=== PATIENT | female | born 1980 | race Caucasian/White ===

== ENCOUNTER 2019-04-01 19:55 | Emergency (ER) | payer OTHER ==
[2019-04-01] MEDS ORDERED: MAG HYDROX/AL HYDROX/SIMETH SUSP 30 ML UDCUP PO ONE (20:14)
[2019-04-01] MEDS ORDERED: LIDOCAINE 2% VISCOUS SOLN 20 ML UDCUP PO ONE (20:14)
[2019-04-01] MEDS ORDERED: METOCLOPRAMIDE HCL ORAL SOLN 10 MG/10 ML UDCUP PO ONE (20:14)
--- NOTE | 2019-04-01 20:17 | ER Document Report ---
ED Medical Screen (RME) - General Chief Complaint: Abdominal Pain Stated Complaint: CHEST PAIN Time Seen by Provider: 04/01/19 20:12 Notes: Patient is a 38-year-old female who presents to the emergency department with a chief complaint of abdominal pain. Patient reports she has been under a lot of stress over the past month and half as her fianc ended a 10-year relationship. She states last night she found out he was with another female. She reports she is lost 20 pounds over the past month due to stress. Patient reports last night she had increased anxiety and feelings of palpitations in her heart. Patient reports today she developed abdominal pain located to the left of the umbilicus and radiates up into the left upper abdomen and left breast.. Patient reports she has had a similar episode in the past which was not as bad and was told she had gastritis. Patient reports she has had a cholecystectomy. Patient reports nausea without vomiting or diarrhea. Patient denies fever. Patient denies urinary symptoms. Patient reports she just got off of her menstrual cycle and is supposed to start her new pack of control pills tomorrow. - Related Data Allergies/Adverse Reactions: codeine [Codeine] Allergy (Verified 04/05/13 16:53) Past Medical History Past Surgical History: Reports: Hx Cholecystectomy - Immunizations Hx Diphtheria, Pertussis, Tetanus Vaccination: Yes Physical Exam - Vital signs Vitals: Temp Pulse Resp BP Pulse Ox 97.5 F 76 18 148/75 H 100 04/01/19 20:11 04/01/19 20:11 04/01/19 20:11 04/01/19 20:11 04/01/19 20:11 Course - Re-evaluation Re-evalutation: 04/01/19 20:17 I have greeted and performed a rapid initial assessment of this patient. A comprehensive ED assessment and evaluation of the patient, analysis of test results and completion of the medical decision making process will be conducted by additional ED providers. - Vital Signs Vital signs: Temp Pulse Resp BP Pulse Ox 97.5 F 76 18 148/75 H 100 04/01/19 20:11 04/01/19 20:11 04/01/19 20:11 04/01/19 20:11 04/01/19 20:11
[2019-04-01 20:58] LABS: ABSOLUTE BASOPHILS # (AUTO) 0.1 10^3/uL (0.0-0.2); ABSOLUTE LYMPHOCYTES (AUTO) 2.8 10^3/uL (0.5-4.7); ABSOLUTE MONOCYTES (AUTO) 1.1 10^3/uL (0.1-1.4); BASOPHILS % (AUTO) 0.5 % (0-2); EOSINOPHILS % (AUTO) 0.3 % (0-6); HEMATOCRIT 39.5 % (36.0-47.0); HEMOGLOBIN 13.2 g/dL (12.0-15.5); LYMPHOCYTES % (AUTO) 20.1 % (13-45); MEAN CORPUSCULAR HEMOGLOBIN 28.4 pg (27.0-33.4); MEAN CORPUSCULAR HGB CONC 33.4 g/dL (32.0-36.0); MEAN CORPUSCULAR VOLUME 85 fl (80-97); MONOCYTES % (AUTO) 7.8 % (3-13); PLATELET COUNT 318 10^3/uL (150-450); RED BLOOD COUNT 4.64 10^6/uL (3.72-5.28); RED CELL DISTRIBUTION WIDTH 14.9 % (11.5-14.0); SEGMENTED NEUTROPHILS % (AUTO) 71.3 % (42-78); TOTAL CELLS COUNTED % (AUTO) 100 %
--- NOTE | 2019-04-01 21:10 | ER Document Report ---
ED GI/ - General Chief Complaint: Chest Pain Stated Complaint: CHEST PAIN Time Seen by Provider: 04/01/19 20:12 Primary Care Provider: MIGUELINA SAAB PA-C [Primary Care Provider] - Follow up as needed Notes: 38-year-old woman presents to the emergency department with a complaint of abdominal pain with severe cramping pain and episodes of vomiting at home. She states that she has gone through a stressful break-up and feels that her symptoms are related to anxiety and stress. She was up all night with shakiness anxiousness and rapid heartbeat. Was resting well today and approximately 3 hours after eating her evening meal began having severe epigastric and left- sided abdominal pain. She presents to the emergency department and was evaluated in the provider in triage system, GI cocktail was ordered. After attempting to drink GI cocktail patient began vomiting and planing of increased abdominal pain. She denies diarrhea or fever. He has had a cholecystectomy in the past no other abdominal surgeries. Her last bowel movement was early in the afternoon and her appetite has been normal. - Related Data Allergies/Adverse Reactions: codeine [Codeine] Allergy (Verified 04/05/13 16:53) Home Medications: Plaquenil 200mg (2tabs) BID. Orthotricyclin Control Past Medical History - General Information source: Patient - Social History Smoking Status: Never Smoker Frequency of alcohol use: None Drug Abuse: None Family History: Reviewed & Not Pertinent, Other Patient has suicidal ideation: No Patient has homicidal ideation: No Past Surgical History: Reports: Hx Cholecystectomy - Immunizations Hx Diphtheria, Pertussis, Tetanus Vaccination: Yes Review of Systems - Review of Systems Notes: Constitutional: Negative for fever. HENT: Negative for sore throat. Eyes: Negative for visual changes. Cardiovascular: Negative for chest pain. Respiratory: Negative for shortness of breath. Gastrointestinal: +abdominal pain, +vomiting , no diarrhea. Genitourinary: Negative for dysuria. Musculoskeletal: Negative for back pain. Skin: Negative for rash. Neurological: Negative for headaches, weakness or numbness. 10 point ROS negative except as marked above and in HPI. Physical Exam - Vital signs Vitals: Temp Pulse Resp BP Pulse Ox 97.5 F 76 18 148/75 H 100 04/01/19 20:11 04/01/19 20:11 04/01/19 20:11 04/01/19 20:11 04/01/19 20:11 - Notes Notes: PHYSICAL EXAMINATION: GENERAL: Well-appearing, well-nourished female moderate distress due to abdominal pain. HEAD: Atraumatic, normocephalic. EYES: Pupils equal round and reactive to light, extraocular movements intact, sclera anicteric, conjunctiva are normal. ENT: nares patent, oropharynx clear without exudates. Moist mucous membranes. NECK: Normal range of motion, supple without lymphadenopathy LUNGS: Breath sounds clear to auscultation bilaterally and equal. No wheezes rales or rhonchi. HEART: Regular rate and rhythm without murmurs ABDOMEN: Soft, tenderness in the mid epigastric and left upper quadrants region, tenderness in the periumbilical region, normoactive bowel sounds. No guarding, no rebound. No masses appreciated. EXTREMITIES: Normal range of motion, no pitting or edema. No cyanosis. NEUROLOGICAL: No focal neurological deficits. Moves all extremities spontaneously and on command. PSYCH: Normal mood, normal affect. SKIN: Warm, Dry, normal turgor, no rashes or lesions noted. Course - Re-evaluation Re-evalutation: 04/01/19 23:29 The nurse reports that the patient is continued to have severe pain. Upon evaluation the patient is writhing in pain stating that pain is a 10/10. She was unable to keep the GI cocktail down and a Toradol was ineffective in treatin g the pain. Patient is given hydromorphone 1 mg IV and Zofran [address] scan has been completed and we are awaiting the interpretation by the radiologist. 04/02/19 01:11 I discussed the findings of this laboratory data and CT scan with the patient and her mother. There is no acute pathology which she needs intervention on the CT scan, the white blood cell count is 14,000 but may be related to other reasons rather than infection. Patient is is resting quietly and her abdominal pain has improved. I will be discharging her home with dicyclomine and encouragement to follow-up with her primary care doctor as needed. The patient and her mother acknowledges this plan and are in agreement. - Vital Signs Vital signs: Temp Pulse Resp BP Pulse Ox 97.5 F 76 21 H 125/74 93 04/01/19 20:11 04/01/19 20:11 04/02/19 01:01 04/02/19 01:00 04/02/19 01:01 - Laboratory Result Diagrams: 04/01/19 20:40 04/01/19 20:40 Laboratory results interpreted by me: 04/01/19 04/01/19 04/01/19 20:40 20:40 22:04 WBC 14.0 H RDW 14.9 H Absolute Neuts (auto) 10.0 H BUN 6 L Urine Ketones 20 H - Diagnostic Test Radiology reviewed: Image reviewed, Reports reviewed - CT scan abdomen and pelvis with IV contrast: There were no acute intra-abdominal pathology noted on the CT scan. The radiologist raises questionable area on the spleen which may represent splenic infarct. Splenic artery is patent and the patient has no symptoms in the left upper quadrant area. Symptomatic management is treatment of choice, however, findings do not correlate with the clinical presentation. Discharge - Discharge Clinical Impression: Abdominal pain, diffuse, Stress reaction Condition: Good Disposition: HOME, SELF-CARE Instructions: Antacid Therapy ([facility]), Antispasmodics ([facility]), Anxiety ([facility]) Additional Instructions: Please take your medications as prescribed dicyclomine and omeprazole. At this time will discharge with return precautions and follow-up recommendations. Verbal discharge instructions given a the bedside and opportunity for questions given. Medication warnings reviewed. Patient is in agreement with this plan and has verbalized understanding of return precautions and the need for primary care follow-up in the next 24-72 hours. Prescriptions: Dicyclomine HCl [Bentyl 10 mg Capsule] 1 cap PO TID #20 cap Omeprazole 40 mg PO DAILY #20 capsule. Referrals: MIGUELINA SAAB PA-C [Primary Care Provider] - Follow up as needed
[2019-04-01 21:11] LABS: ALBUMIN 4.3 g/dL (3.5-5.0); ALKALINE PHOSPHATASE 76 U/L (38-126); ANION GAP 12 (5-19); ASPARTATE AMINO TRANSFERASE 25 U/L (14-36); BILIRUBIN,DIRECT 0.1 mg/dL (0.0-0.4); BILIRUBIN,TOTAL 0.4 mg/dL (0.2-1.3); BLOOD UREA NITROGEN 6 mg/dL (7-20); CALCIUM 9.9 mg/dL (8.4-10.2); CARBON DIOXIDE 23 mmol/L (22-30); CHLORIDE 104 mmol/L (98-107); GLUCOSE 101 mg/dL (75-110); POTASSIUM 3.7 mmol/L (3.6-5.0); TOTAL PROTEIN 7.4 g/dL (6.3-8.2)
[2019-04-01] MEDS ORDERED: KETOROLAC TROMETHAMINE INJ/PF 30 MG/1 ML SDV IV ONE (21:11)
[2019-04-01] MEDS ORDERED: ONDANSETRON HCL INJ/PF 4 MG/2 ML SDV IV ONE ×2 (21:11→23:28)
[2019-04-01] MEDS ORDERED: NORMAL SALINE 1000 ML 1,000 ML IV ONE (21:12)
--- NOTE | 2019-04-01 22:18 | EKG REPORT ---
SEVERITY:- ABNORMAL ECG - SINUS RHYTHM PROBABLE LEFT ATRIAL ABNORMALITY PROBABLE LEFT VENTRICULAR HYPERTROPHY BORDERLINE T ABNORMALITIES, INFERIOR LEADS : Confirmed by: Louise Mackey MD 01-Apr-2019 22:18:09
[2019-04-01 22:44] LABS: APPEARANCE,URINE SLIGHTLY-CLOUDY; BILIRUBIN,URINE NEGATIVE (NEGATIVE); COLOR,URINE YELLOW; GLUCOSE, URINE NEGATIVE (NEGATIVE); KETONES,URINE 20 mg/dL (NEGATIVE); LEUKOCYTE ESTERASE,URINE NEGATIVE (NEGATIVE); NITRITE,URINE NEGATIVE (NEGATIVE); PROTEIN,URINE NEGATIVE (NEGATIVE); UROBILINOGEN,URINE NEGATIVE mg/dL (<2.0)
[2019-04-01] MEDS ORDERED: HYDROMORPHONE HCL INJ/PF 2 MG/ML AMPULE IV ONE (23:26)
--- NOTE | 2019-04-01 23:29 | RADIOLOGY REPORT (SQ) ---
EXAM DESCRIPTION: CT ABDOMEN PELVIS WITH IV CONTRAST COMPLETED DATE/TME: 04/01/2019 21:39 CLINICAL HISTORY: 38 years, Female, Left lower quadrant abdominal pain COMPARISON: None. TECHNIQUE: 407 Images stored on PACS. All CT scanners at this facility use dose modulation, iterative reconstruction, and/or weight based dosing when appropriate to reduce radiation dose to as low as reasonably achievable (ALARA). [facility]: Dose Right [facility]: CareDose [facility]: Dose Right [facility]: Teradose 4D [facility]: [employer] LIMITATIONS: None. FINDINGS: Limited evaluation of the lung bases is unremarkable. Osseous structures are grossly intact. Fatty infiltrative change to the liver. Heterogeneous enhancement of the spleen. The spleen is not enlarged. While findings may in part reflect phase of splenic contrast, splenic infarct should also be considered. The splenic artery appears patent. Abnormal enhancement persists on delayed images as well.. The spleen measures 9 cm in greatest diameter. The adrenal glands, pancreas, kidneys are unremarkable. Status post cholecystectomy. No gross evidence for bowel obstruction. The appendix is not well seen. No pericecal inflammation. No free air or free fluid.. IMPRESSION: Diffusely heterogeneous enhancement pattern of the spleen. The spleen is not enlarged. No perisplenic fluid collection. In the absence of trauma, findings could reflect areas of splenic infarct. Infectious or neoplastic process felt less likely. Fatty infiltrative change to the liver.. TECHNICAL DOCUMENTATION: Quality ID # [id number]: Final reports with documentation of one or more dose reduction techniques (e.g., Automated exposure control, adjustment of the mA and/or kV according to patient size, use of iterative reconstruction technique) copyright 2011 [employer]- All Rights Reserved
[2019-04-02] MEDS ORDERED: LORAZEPAM INJ 2 MG/1 ML VIAL IV ONE (00:10)
[2019-04-02 01:18] VITALS: BP 125/74
== END 2019-04-02 01:32 | disposition home or self-care (01) ==
LOC: ER 19:55
DX: R10.9 Unspecified abdominal pain (principal); F43.9 Reaction to severe stress, unspecified; R07.9 Chest pain, unspecified; R11.10 Vomiting, unspecified; Z90.49 Acquired absence of other specified parts of digestive tract; Z79.899 Other long term (current) drug therapy
CPT/HCPCS: 93005; 36415; 83690; 84703; 85025; 80053; 81001; 74177; 93010; J3490; J1885; J1170; J2060; J2405; J7030; 96361; 96374; 96375; 96376; 99285

== ENCOUNTER 2019-04-02 06:41 | Inpatient (IN) | payer OTHER ==
--- NOTE | 2019-04-02 07:24 | ER Document Report ---
ED GI/ - General Chief Complaint: Abdominal Pain Stated Complaint: ABDOMINAL PAIN Time Seen by Provider: 04/02/19 06:57 Information source: Patient Notes: Ms. Parker is a 38 yo F w/ PMH of anti-Radha positive rash (unknown autoimmune disease) presenting to the ED for abdominal pain. Patient states abdominal pain is primarily in the left upper quadrant, underneath her left rib cage and radiates to her left flank/left back. She also endorses a pain in her left scapula. She denies any falls or trauma. Patient states she is currently on control with Ortho Tri-Cyclen Lo. She denies any other risk factors for coagulopathy including prolonged immobilization, recent travel, recent surgery, or previous history of any clots. Patient states she thought this was GERD and has been taking acid reducing medication including Maalox with minimal improvement. She states the pain initially began approximately 2 days ago but acutely worsened yesterday which caused her to present to the ED for initial evaluation. She was given a pain medication overnight (Dilaudid) which improved the pain some however did not cause the pain to completely resolve. When she went home, she had 3 spoonfuls of soup and had such severe pain that she vomited again. Patient denies any fevers or chills, chest pain, cough or shortness of breath. She denies any other ill contacts. She endorses a previous cholecystectomy. TRAVEL OUTSIDE OF THE [place] IN LAST 30 DAYS: No - Related Data Allergies/Adverse Reactions: codeine [Codeine] Allergy (Verified 04/05/13 16:53) Past Medical History - Social History Smoking Status: Never Smoker Chew tobacco use (# tins/day): No Frequency of alcohol use: None Drug Abuse: None Family History: Reviewed & Not Pertinent, Other Patient has suicidal ideation: No Patient has homicidal ideation: No Past Surgical History: Reports: Hx Cholecystectomy - Immunizations Hx Diphtheria, Pertussis, Tetanus Vaccination: Yes Review of Systems - Review of Systems Constitutional: See HPI EENT: No symptoms reported Cardiovascular: No symptoms reported Respiratory: No symptoms reported Gastrointestinal: See HPI Genitourinary: No symptoms reported Female Genitourinary: No symptoms reported Musculoskeletal: No symptoms reported Skin: No symptoms reported Hematologic/Lymphatic: No symptoms reported Neurological/Psychological: No symptoms reported -: Yes All other systems reviewed and negative Physical Exam - Vital signs Vitals: Temp Pulse Resp BP Pulse Ox 97.6 F 70 17 133/99 H 100 04/02/19 06:48 04/02/19 06:48 04/02/19 06:48 04/02/19 06:48 04/02/19 06:48 Interpretation: Normal - General General appearance: Appears well, Alert - HEENT Head: Normocephalic, Atraumatic Eyes: Normal Pupils: PERRL - Respiratory Respiratory status: No respiratory distress Chest status: Nontender Breath sounds: Normal Chest palpation: Normal - Cardiovascular Rhythm: Regular Heart sounds: Normal auscultation Murmur: No - Abdominal Inspection: Normal Distension: No distension Bowel sounds: Normal Tenderness: Tender, Guarding - Voluntary. No: McBurney's point, Tran's sign, Rebound Organomegaly: No organomegaly - Back Back: Normal, Nontender - Extremities General upper extremity: Normal inspection, Nontender, Normal color, Normal ROM, Normal temperature General lower extremity: Normal inspection, Nontender, Normal color, Normal ROM, Normal temperature, Normal weight bearing. No: Calos's sign - Neurological Neuro grossly intact: Yes Cognition: Normal Orientation: AAOx4 Ricardo Coma Scale Eye Opening: Spontaneous [place] Coma Scale Verbal: Oriented [place] Coma Scale Motor: Obeys Commands Ricardo Coma Scale Total: 15 Speech: Normal Motor strength normal: LUE, RUE, LLE, RLE Sensory: Normal - Psychological Associated symptoms: Normal affect, Normal mood - Skin Skin Temperature: Warm Skin Moisture: Dry Skin Color: Normal Course - Re-evaluation Re-evalutation: Patient is uncomfortable appearing but nontoxic. Initial vitals within normal limits. Patient was evaluated here yesterday evening and had full set of labs including CAT scan abdomen pelvis. CT does show evidence of splenic infarction. Will discuss with radiologist to see if he is in agreement. Differential diagnosis includes inability keep down p.o., dehydration, electrolyte normality, splenic infarction, coagulopathy 04/02/19 07:23 Spoke to radiologist, Dr. Freitas. He agrees with the diagnosis. The patient spleen has infarcted and is likely causing her etiology of symptoms. CBC notable for worsening leukocytosis with worsening left shift. CMP within normal limits. PT/INR also unremarkable. No indication for repeat imaging at this point in time as patient's pain has not changed and both radiology as well as surgery agree that the patient does have a splenic infarction. 04/02/19 07:43 Spoke to , who recommended a PT/INR to be added on. He is reviewing the CT and will likely admit the patient for further care. 04/02/19 08:[address] De Souza. Feels that the patient's spring upholsterer needs to be contacted. He also would recommend admission to the medical service for anti-emetics and pain control given her inability to keep p.o. and feels that surgical intervention at this point in time is not indicated. Recommended that hematology oncology consult regarding the patient. 04/02/19 08:[address] Montes @ [phone]. Able to get a hold of the office, try twice. 04/02/19 08:[address] Silver. Would like admission to Mr. Ruiz. She was having pain, ordered for Dilaudid 1 mg IV. 04/02/19 09:26 Spoke to Mr. Ruiz regarding admission. Will admit the patient for further care. - Vital Signs Vital signs: Temp Pulse Resp BP Pulse Ox 97.6 F 70 19 115/67 94 04/02/19 06:48 04/02/19 06:48 04/02/19 10:31 04/02/19 10:31 04/02/19 10:31 - Laboratory Result Diagrams: 04/02/19 08:02 04/02/19 08:02 Laboratory results interpreted by me: 04/02/19 04/02/19 08:02 08:02 WBC 18.8 H RDW 14.9 H Lymph % (Auto) 7.0 L Absolute Neuts (auto) 16.6 H Seg Neutrophils % 88.2 H BUN 5 L Discharge - Discharge Clinical Impression: Splenic infarction, Abdominal pain, Nausea & vomiting Condition: Good Disposition: ADMITTED INPATIENT Admitting Provider: Adrianne (Hospitalist) Unit Admitted: Medical Floor
[2019-04-02] MEDS ORDERED: NORMAL SALINE 1000 ML 1,000 ML IV ONE (07:29)
[2019-04-02] MEDS ORDERED: ONDANSETRON HCL INJ/PF 4 MG/2 ML SDV IV ONE (07:30)
[2019-04-02] MEDS ORDERED: MORPHINE SULFATE 10 MG/ML INJ IV ONE (07:42)
[2019-04-02 08:32] LABS: ABSOLUTE BASOPHILS # (AUTO) 0.1 10^3/uL (0.0-0.2); ABSOLUTE LYMPHOCYTES (AUTO) 1.3 10^3/uL (0.5-4.7); ABSOLUTE MONOCYTES (AUTO) 0.8 10^3/uL (0.1-1.4); ABSOLUTE NEUT (AUTO) 16.6 10^3/uL (1.7-8.2); BASOPHILS % (AUTO) 0.4 % (0-2); HEMOGLOBIN 12.9 g/dL (12.0-15.5); MEAN CORPUSCULAR HEMOGLOBIN 28.1 pg (27.0-33.4); MEAN CORPUSCULAR HGB CONC 32.4 g/dL (32.0-36.0); MEAN CORPUSCULAR VOLUME 87 fl (80-97); MONOCYTES % (AUTO) 4.4 % (3-13); PLATELET COUNT 305 10^3/uL (150-450); RED CELL DISTRIBUTION WIDTH 14.9 % (11.5-14.0); SEGMENTED NEUTROPHILS % (AUTO) 88.2 % (42-78); TOTAL CELLS COUNTED % (AUTO) 100 %; WHITE BLOOD COUNT 18.8 10^3/uL (4.0-10.5)
[2019-04-02 08:44] LABS: INTERNATIONAL RATION (INR) 1.04; PROTHROMBIN TIME 13.6 SEC (11.4-15.4)
[2019-04-02 08:57] LABS: ALBUMIN 4.2 g/dL (3.5-5.0); ALKALINE PHOSPHATASE 75 U/L (38-126); ANION GAP 9 (5-19); ASPARTATE AMINO TRANSFERASE 26 U/L (14-36); BILIRUBIN,DIRECT 0.1 mg/dL (0.0-0.4); BILIRUBIN,TOTAL 0.3 mg/dL (0.2-1.3); BLOOD UREA NITROGEN 5 mg/dL (7-20); CARBON DIOXIDE 25 mmol/L (22-30); CHLORIDE 104 mmol/L (98-107); GLUCOSE 109 mg/dL (75-110); POTASSIUM 3.7 mmol/L (3.6-5.0); TOTAL PROTEIN 7.5 g/dL (6.3-8.2)
[2019-04-02] MEDS ORDERED: HYDROMORPHONE HCL INJ/PF 2 MG/ML AMPULE IV ONE (09:14)
--- NOTE | 2019-04-02 09:17 | PDOC CONSULTATION ---
Consultation Consult Date: 04/02/19 Provider Consulted: AVIVA BRICE Consult reason:: Splenic infarct History of Present Illness Admission Date/PCP: MIGUELINA SAAB PA-C Patient complains of: Left upper quadrant pains with nausea and vomiting History of Present Illness: SHASHI BETH is a 38 year old female came in last night initially at the ED for left upper quadrant pains with nausea and vomiting. She had a CAT scan of the abdomen which initially read as possible partial splenic infarction. Patient sent home at 2 AM this morning after being given IV Dilaudid. Woke up with the same type of pains in left upper quadrant and again associated with nausea and vomiting around 5 AM and came back to ED. Surgery was then consulted for definite partial splenic infarction as discussed by the ED physician with renea radiologist. On further questioning patient claims that she was diagnosed to have some autoimmune disease by a nitric acid concentrator operator in 2013 when she had some sunburn. She was then placed on Plaquenil 400 mg [address] day [address] Dr. Josué CONNORS from [facility] evelyn in the last consultation was about 2 months ago. Patient further informs me that her father had a history of recessive trait of hemochromatosis and and and diet as a result of hemochromatosis. Patient also has been on control pills since age 16. Past Medical History Skin Medical History: Reports: Other - Diagnosed to have an autoimmune disease b y her nitric acid concentrator operator Dr. Pete in Past Surgical History Past Surgical History: Reports: Cholecystectomy Social History Smoking Status: Never Smoker Electronic Cigarette use?: No Family History Family History: Reviewed & Not Pertinent, Other Parental Family History Reviewed: Yes - Father has recessive trait of hemochromatosis and an aunt due to this Children Family History Reviewed: No Sibling(s) Family History Reviewed.: No Medication/Allergy Home Medications: Hydroxychloroquine Sulfate [Plaquenil 200 mg Tablet] 200 mg PO BID 04/02/19 Allergies/Adverse Reactions: codeine [Codeine] Allergy (Verified 04/05/13 16:53) Review of Systems Constitutional: PRESENT: weight loss - 20 lbs past 1.5 months Cardiovascular: PRESENT: palpitations Gastrointestinal: PRESENT: abdominal pain, nausea, vomiting Psychiatric: PRESENT: anxiety - Boyfriend of 12 years cut off relationship over the weekend Physical Exam Vital Signs: Temp Pulse Resp BP Pulse Ox 97.6 F 70 12 120/75 99 11/18/19 06:48 04/02/19 06:48 04/02/19 08:31 04/02/19 08:31 04/02/19 08:31 Intake & Output 04/01/19 04/02/19 04/03/19 06:59 06:59 06:59 Weight 88.904 kg General appearance: PRESENT: mild distress Head exam: PRESENT: atraumatic Eye exam: PRESENT: conjunctiva pink Neck exam: PRESENT: full ROM Respiratory exam: PRESENT: clear to auscultation armand Cardiovascular exam: PRESENT: RRR Pulses: PRESENT: normal radial pulses Vascular exam: PRESENT: normal capillary refill GI/Abdominal exam: PRESENT: soft, tenderness - LUQ Rectal exam: PRESENT: deferred Extremities exam: PRESENT: full ROM Musculoskeletal exam: PRESENT: ambulatory Neurological exam: PRESENT: alert, oriented to person, oriented to place, oriented to time, oriented to situation Psychiatric exam: PRESENT: anxious Skin exam: PRESENT: normal color, warm Results Laboratory Results: 04/02/19 08:02 04/02/19 04/02/19 08:02 08:02 WBC 18.8 H RBC 4.60 Hgb 12.9 Hct 40.0 MCV 87 MCH 28.1 MCHC 32.4 RDW 14.9 H Plt Count 305 Seg Neutrophils % 88.2 H Lactic Acid 1.2 Assessment & Plan - Diagnosis (1) Partial splenic infarction Is this a current diagnosis for this admission?: Yes - Time Time Spent: 30 to 50 Minutes - Inpatient Certification Medical Necessity: Need For IV Fluids, Need for Pain Control - Plan Summary Plan Summary: This is a 38-year-old female with the left upper quadrant pains for the past 2 days associated with nausea and vomiting. She had a CAT scan of the abdomen which showed partial splenic infarctions. She has a history of autoimmune disease and taking Plaquenil 200 mg twice a day prescribed by her nitric acid concentrator operator Dr. Marin in [place] since 2013. She also has family history for hemochromat osis. His father apparently has recessive trait for this and an aunt apparently as a complication of this. She has been on control pills since age 16. She is tender in the left upper quadrant but no rebound. Her white count is elevated to 18.8. Impression is partial splenic infarction. Possibly due to history of autoimmune disease with hemochromatosis. Plans: Admit patient to medical service and continue with pain control with Toradol and if needed with narcotics. Hematology consultation with Dr. Morrow We can follow-up the patient with you Patient may need to be on anticoagulation but will leave it up to the high density press operator recommendation
[2019-04-02] MEDS ORDERED: ONDANSETRON HCL INJ/PF 4 MG/2 ML SDV IV PRN (09:53)
[2019-04-02] MEDS ORDERED: HYDROXYCHLOROQUINE SULFATE 200 MG TABLET PO SCH (10:00)
--- NOTE | 2019-04-02 10:08 | PDOC H&P ---
History of Present Illness Admission Date/PCP: 04/02/19 09:54 MIGUELINA SAAB PA-C Patient complains of: Abdominal pain History of Present Illness: SHASHI BETH is a 38 year old female Past Medical History Skin Medical History: Reports: Other - Diagnosed to have an autoimmune disease by her rough rice tender Dr. Pete in Past Surgical History Past Surgical History: Reports: Cholecystectomy Social History Information Source: Patient Lives with: Family Smoking Status: Never Smoker Electronic Cigarette use?: No Frequency of Alcohol Use: None Hx Recreational Drug Use: No Drugs: None Hx Prescription Drug Abuse: No - Advance Directive Resuscitation Status: Full Code Family History Family History: Other Parental Family History Reviewed: Yes Children Family History Reviewed: Yes Sibling(s) Family History Reviewed.: Yes Medication/Allergy Home Medications: Hydroxychloroquine Sulfate [Plaquenil 200 mg Tablet] 200 mg PO BID 04/02/19 Allergies/Adverse Reactions: codeine [Codeine] Allergy (Verified 04/05/13 16:53) Review of Systems Constitutional: ABSENT: chills, fever(s), headache(s), weight gain, weight loss Eyes: ABSENT: visual disturbances Ears: ABSENT: hearing changes Cardiovascular: ABSENT: chest pain, dyspnea on exertion, edema, orthropnea, palpitations Respiratory: ABSENT: cough, hemoptysis Gastrointestinal: PRESENT: abdominal pain, nausea, vomiting. ABSENT: constipation, diarrhea, hematemesis, hematochezia Genitourinary: ABSENT: dysuria, hematuria Musculoskeletal: ABSENT: joint swelling Integumentary: ABSENT: rash, wounds Neurological: ABSENT: abnormal gait, abnormal speech, confusion, dizziness, focal weakness, syncope Psychiatric: ABSENT: anxiety, depression, homidical ideation, suicidal ideation Endocrine: ABSENT: cold intolerance, heat intolerance, polydipsia, polyuria Hematologic/Lymphatic: ABSENT: easy bleeding, easy bruising Physical Exam Vital Signs: Temp Pulse Resp BP Pulse Ox 97.6 F 70 12 120/75 99 04/02/19 06:48 04/02/19 06:48 04/02/19 08:31 04/02/19 08:31 04/02/19 08:31 Intake & Output 04/01/19 04/02/19 04/03/19 06:59 06:59 06:59 Intake Total 1000 Balance 1000 Weight 88.904 kg General appearance: PRESENT: no acute distress, well-developed, well-nourished Head exam: PRESENT: atraumatic, normocephalic Eye exam: PRESENT: conjunctiva pink, EOMI, PERRLA. ABSENT: scleral icterus Ear exam: PRESENT: normal external ear exam Mouth exam: PRESENT: moist, tongue midline Neck exam: ABSENT: carotid bruit, JVD, lymphadenopathy, thyromegaly Respiratory exam: PRESENT: clear to auscultation armand. ABSENT: rales, rhonchi, wheezes Cardiovascular exam: PRESENT: RRR. ABSENT: diastolic murmur, rubs, systolic murmur Pulses: PRESENT: normal dorsalis pedis pul Vascular exam: PRESENT: normal capillary refill GI/Abdominal exam: PRESENT: normal bowel sounds, soft. ABSENT: distended, guarding, mass, organolmegaly, rebound, tenderness Rectal exam: PRESENT: deferred Extremities exam: PRESENT: full ROM. ABSENT: calf tenderness, clubbing, pedal edema Neurological exam: PRESENT: alert, awake, oriented to person, oriented to place, oriented to time, oriented to situation, CN II-XII grossly intact. ABSENT: motor sensory deficit Psychiatric exam: PRESENT: appropriate affect, normal mood. ABSENT: homicidal ideation, suicidal ideation Skin exam: PRESENT: dry, intact, warm. ABSENT: cyanosis, rash Results Laboratory Results: 04/02/19 08:02 04/02/19 08:02 04/02/19 04/02/19 04/02/19 08:02 08:02 08:02 WBC 18.8 H RBC 4.60 Hgb 12.9 Hct 40.0 MCV 87 MCH 28.1 MCHC 32.4 RDW 14.9 H Plt Count 305 Seg Neutrophils % 88.2 H Sodium 138.3 Potassium 3.7 Chloride 104 Carbon Dioxide 25 Anion Gap 9 BUN 5 L Creatinine 0.67 Est GFR ( Amer) > 60 Glucose 109 Lactic Acid 1.2 Calcium 9.0 Total Bilirubin 0.3 AST 26 Alkaline Phosphatase 75 Total Protein 7.5 Albumin 4.2 Lipase 59.2 Assessment and Plan - Diagnosis (1) Splenic infarction Is this a current diagnosis for this admission?: Yes Plan: 04/02/2019-not a surgical candidate this time. Will admit for hydration and pain control. Continue to follow surgery has seen the patient at this time. (2) Radha-1 antibody positive Is this a current diagnosis for this admission?: Yes Plan: 04/02/2019-continue hydroxychloroquine from home (3) Abdominal pain Is this a current diagnosis for this admission?: Yes Plan: 04/02/2019-Dilaudid 1 mg IV every 3 hours. (4) Nausea & vomiting Is this a current diagnosis for this admission?: Yes Plan: 04/02/2019-Zofran 4 mg IV every 4 hours. - Time Time Spent with patient: 15-24 minutes - Inpatient Certification Based on my medical assessment, after consideration of the patient's comorbidities, presenting symptoms, or acuity I expect that the services needed warrant INPATIENT care.: Yes I certify that my determination is in accordance with my understanding of Medicare's requirements for reasonable and necessary INPATIENT services [42 CFR 412.3e].: Yes Medical Necessity: Need for Pain Control, Need for IV Antibiotics
[2019-04-02] MEDS: NORMAL SALINE 1000 ML 1,000 ML IV PRN ×2 (10:27→19:54)
[2019-04-02] MEDS: HYDROXYCHLOROQUINE SULFATE 200 MG TABLET PO SCH ×2 (12:08→22:49)
[2019-04-02] MEDS: KETOROLAC TROMETHAMINE INJ/PF 30 MG/1 ML SDV IV PRN ×2 (12:27→19:55)
[2019-04-02] MEDS: CEFTRIAXONE 1 GM/D5W RTU 1 GM/50 ML RTUPB IV SCH (12:28)
[2019-04-02] MEDS: HEPARIN SOD (PORCINE) 5,000 UNIT/ML 1 ML VIAL SUBCUT SCH ×2 (14:31→22:32)
[2019-04-02] MEDS: HYDROMORPHONE HCL INJ/PF 2 MG/ML AMPULE IV PRN ×2 (14:31→23:30)
[2019-04-02] MEDS ORDERED: MORPHINE SULFATE 10 MG/ML INJ IV PRN (20:55)
[2019-04-02] MEDS: MORPHINE SULFATE 10 MG/ML INJ IV PRN (22:31)
[2019-04-03] MEDS: MORPHINE SULFATE 10 MG/ML INJ IV PRN ×6 (01:36→21:14)
[2019-04-03] MEDS: KETOROLAC TROMETHAMINE INJ/PF 30 MG/1 ML SDV IV PRN ×2 (04:02→21:15)
[2019-04-03] MEDS: MAG HYDROX/AL HYDROX/SIMETH SUSP 30 ML UDCUP PO PRN ×2 (04:02→10:01)
[2019-04-03] MEDS: NORMAL SALINE 1000 ML 1,000 ML IV PRN ×2 (04:41→16:51)
[2019-04-03] MEDS: HYDROMORPHONE HCL INJ/PF 2 MG/ML AMPULE IV PRN (04:48)
[2019-04-03] MEDS: HEPARIN SOD (PORCINE) 5,000 UNIT/ML 1 ML VIAL SUBCUT SCH ×3 (05:35→21:08)
[2019-04-03 06:16] LABS: HEMOGLOBIN 12.1 g/dL (12.0-15.5); MEAN CORPUSCULAR HEMOGLOBIN 28.2 pg (27.0-33.4); MEAN CORPUSCULAR HGB CONC 32.7 g/dL (32.0-36.0); MEAN CORPUSCULAR VOLUME 86 fl (80-97); PLATELET COUNT 232 10^3/uL (150-450); RED CELL DISTRIBUTION WIDTH 15.2 % (11.5-14.0); WHITE BLOOD COUNT 18.7 10^3/uL (4.0-10.5)
[2019-04-03 06:35] LABS: ANION GAP 9 (5-19); BLOOD UREA NITROGEN 4 mg/dL (7-20); CALCIUM 8.8 mg/dL (8.4-10.2); CARBON DIOXIDE 24 mmol/L (22-30); CHLORIDE 108 mmol/L (98-107); GLUCOSE 91 mg/dL (75-110); PHOSPHORUS 2.1 mg/dL (2.5-4.5); POTASSIUM 3.7 mmol/L (3.6-5.0)
--- NOTE | 2019-04-03 09:12 | PDOC CONSULTATION ---
Consultation Consult Date: 04/03/19 Provider Consulted: ROGER GLOVER Consult reason:: Hematology/Oncology consultation was requested for patient with possible splenic infarcts. 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 This has been stable with no changes to the plaquinil since 2013. Although she is a carrier for hemochromatosis, she does not have the disease. She states that she has been under a tremendous amount of stress recently, stayed up all night the day before admission, and began having severe LUQ abdominal pain. She has lost a great deal of weight, intentionally. She also had some vomiting, but denies any blood. She states that with current pain medications, pain has improved, but is still present. She denies any constipation or diarrhea. PeptoBismol did not help. Pain is constant, but crampy and at times worse. Also with heartburn. CT in the ED showed possible splenic infarcts, but no evidence of splenic vein or artery thrombosis. Past Medical History Cardiac Medical History: Reports: None Pulmonary Medical History: Reports: None Malignancy Medical History: Reports: None GI Medical History: Reports: None Skin Medical History: Reports: Other - Diagnosed to have an autoimmune disease by her fitness sales consultant Dr. Pete in Psychiatric Medical History: Denies: Depression Past Surgical History Past Surgical History: Reports: Cholecystectomy, Other - tubes in ears as a child. Social History Information Source: Patient Lives with: Family Smoking Status: Never Smoker Electronic Cigarette use?: No Frequency of Alcohol Use: Occasional Hx Recreational Drug Use: No Drugs: None Hx Prescription Drug Abuse: No Past Social History Note: Single, no children. - Advance Directive Resuscitation Status: Full Code Family History Family History: Reviewed & Not Pertinent, Other Parental Family History Reviewed: Yes - Father with CAD, COPD, autoimmune disease Children Family History Reviewed: NA Sibling(s) Family History Reviewed.: Yes Medication/Allergy Home Medications: Hydroxychloroquine Sulfate [Plaquenil 200 mg Tablet] 200 mg PO BID 04/02/19 Ibuprofen [Motrin 800 mg Tablet] 800 mg PO Q8HP PRN 04/02/19 Multivitamin [Multiple Vitamins] 1 tab PO DAILY 04/02/19 Norgestimate-Ethinyl Estradiol [Ortho Tri-Cyclen] 1 tab PO DAILY 04/02/19 Allergies/Adverse Reactions: codeine [Codeine] Allergy (Verified 04/05/13 16:53) Review of Systems Constitutional: ABSENT: fever(s), headache(s) Eyes: ABSENT: visual disturbances Ears: ABSENT: hearing changes Nose, Mouth, and Throat: ABSENT: sore throat Cardiovascular: ABSENT: chest pain Respiratory: PRESENT: other - pleuritic pain with deep breath Gastrointestinal: PRESENT: abdominal pain, nausea, vomiting Genitourinary: ABSENT: dysuria Musculoskeletal: ABSENT: back pain Integumentary: ABSENT: rash Neurological: ABSENT: weakness Psychiatric: PRESENT: anxiety Hematologic/Lymphatic: ABSENT: easy bruising Physical Exam Vital Signs: Temp Pulse Resp BP Pulse Ox 98.0 F 80 16 131/69 H 100 04/02/19 23:10 04/02/19 23:10 04/02/19 23:10 04/02/19 23:10 04/02/19 23:10 Intake & Output 04/02/19 04/03/19 04/04/19 06:59 06:59 06:59 Intake Total 4230 Balance 4230 Weight 88.904 kg 90.4 kg General appearance: PRESENT: no acute distress, well-developed, well-nourished Exam: 38 year old female. Head exam: PRESENT: atraumatic, normocephalic Eye exam: PRESENT: EOMI, PERRLA Mouth exam: PRESENT: moist, tongue midline Neck exam: ABSENT: lymphadenopathy, tenderness Respiratory exam: PRESENT: clear to auscultation armand, unlabored Cardiovascular exam: PRESENT: RRR GI/Abdominal exam: PRESENT: soft, tenderness - throughout.. ABSENT: organolmegaly Extremities exam: ABSENT: pedal edema Musculoskeletal exam: PRESENT: normal inspection Neurological exam: PRESENT: alert, awake Psychiatric exam: PRESENT: appropriate affect Skin exam: PRESENT: normal color Results Laboratory Results: 04/03/19 05:00 04/03/19 05:00 04/02/19 04/03/19 04/03/19 08:02 05:00 05:00 WBC 18.7 H RBC 4.30 Hgb 12.1 Hct 37.0 MCV 86 MCH 28.2 MCHC 32.7 RDW 15.2 H Plt Count 232 Sodium 138.3 141.0 Potassium 3.7 3.7 Chloride 104 108 H Carbon Dioxide 25 24 Anion Gap 9 9 BUN 5 L 4 L Creatinine 0.67 0.66 Est GFR ( Amer) > 60 > 60 Glucose 109 91 Calcium 9.0 8.8 Phosphorus 2.1 L Magnesium 2.1 Total Bilirubin 0.3 AST 26 Alkaline Phosphatase 75 Total Protein 7.5 Albumin 4.2 Lipase 59.2 Status: Image reviewed by me - Patient's films were reviewed with Dr. Tomy jasso in Radiology. Assessment & Plan - Diagnosis (1) Abdominal pain Qualifiers: Abdominal location: left upper quadrant Qualified Code(s): R10.12 - Left upper quadrant pain Is this a current diagnosis for this admission?: Yes Plan: I have reviewed CT scans. Although splenic infarct is possible, there are no recommendations for further scans or tests to evaluate this. I would continue pain medications and would consider full dose anticoagulation for about 3-6 months. I will check D-dimer today. She is on prophylactic dose SC heparin. I will discuss other plans with hospitalist today. However, I believe her history and symptoms are more consistent with gastritis, possible gastric ulcer. Consider EGD. I will start PPI. She has Maalox PRN. (2) Splenic infarction Is this a current diagnosis for this admission?: Yes Plan: Unclear if this is truly infarction or not. No specific recommendations for treatment, other than pain control. I will follow with you. I would continue plaquinil for her photodermatitis.
[2019-04-03] MEDS: CEFTRIAXONE 1 GM/D5W RTU 1 GM/50 ML RTUPB IV SCH (09:23)
[2019-04-03] MEDS: PANTOPRAZOLE SODIUM 40 MG TABLET.DR PO SCH (10:00)
[2019-04-03] MEDS: HYDROXYCHLOROQUINE SULFATE 200 MG TABLET PO SCH ×2 (10:01→21:09)
--- NOTE | 2019-04-03 10:14 | PDOC PROGRESS REPORT ---
Subjective Progress Note for:: 04/03/19 Subjective:: Still with left upper quadrant pains may be a little bit less but appears to be further up into the subhepatic area. Hematology consult noted appreciated. Reason For Visit: SPLENIC INFARCT Physical Exam Vital Signs: Temp Pulse Resp BP Pulse Ox 97.8 F 77 14 118/62 97 04/03/19 07:20 04/03/19 07:20 04/03/19 07:20 04/03/19 07:20 04/03/19 07:20 Intake & Output 04/02/19 04/03/19 04/04/19 06:59 06:59 06:59 Intake Total 4230 Balance 4230 Weight 88.904 kg 90.4 kg Exam: Abdomen is soft with mild tenderness in the left upper quadrant more subcostal region and posteriorly. Results Laboratory Results: 04/03/19 05:00 04/03/19 05:00 04/03/19 04/03/19 05:00 05:00 WBC 18.7 H RBC 4.30 Hgb 12.1 Hct 37.0 MCV 86 MCH 28.2 MCHC 32.7 RDW 15.2 H Plt Count 232 Sodium 141.0 Potassium 3.7 Chloride 108 H Carbon Dioxide 24 Anion Gap 9 BUN 4 L Creatinine 0.66 Est GFR ( Amer) > 60 Glucose 91 Calcium 8.8 Phosphorus 2.1 L Magnesium 2.1 Assessment & Plan - Diagnosis (1) Partial splenic infarction Is this a current diagnosis for this admission?: Yes - Time Time Spent with patient: 15-24 minutes - Inpatient Certification Medical Necessity: Need for Pain Control, Need for Surgery - Plan Summary Plan Summary: 38-year-old female with the left upper quadrant pains for the past 2 to 3days. Noted to have possible splenic infarcts on a CAT scan. Patient seen by Dr. Morrow by wound care specialist who suggested EGD to rule out gastritis/gastric ulcer. Asked Dr Rubalcava to do EGD tomorrow No surgical indication at this time. Will sign off. D/W Medicine Sylvia DURAN
[2019-04-03] MEDS: ACETAMINOPHEN 325 MG TABLET PO PRN (13:49)
--- NOTE | 2019-04-03 15:13 | PDOC CONSULTATION ---
Consultation Consult Date: 04/03/19 Provider Consulted: ALBANIA MANCIA Consult reason:: LUQ pain History of Present Illness Admission Date/PCP: 04/02/19 09:54 MIGUELINA SAAB PA-C History of Present Illness: SHASHI BETH is a 38 year old female patient was admitted to the hospitalist service was seen by surgery patient noted to have splenic infarcts Hematology recommended to have EGD done Dr De Souza does not perform the procedure he called me to get EGD done patient had eaten breakfast today denies any dysphagia, does have NSAID use Past Medical History Cardiac Medical History: Reports: None Pulmonary Medical History: Reports: None Malignancy Medical History: Reports: None GI Medical History: Reports: None Skin Medical History: Reports: Other - Diagnosed to have an autoimmune disease by her child and adolescent psychologist Dr. Pete in Psychiatric Medical History: Denies: Depression Past Surgical History Past Surgical History: Reports: Cholecystectomy, Other - tubes in ears as a child. Social History Lives with: Family Smoking Status: Never Smoker Electronic Cigarette use?: No Frequency of Alcohol Use: Occasional Hx Recreational Drug Use: No Drugs: None Hx Prescription Drug Abuse: No - Advance Directive Resuscitation Status: Full Code Family History Family History: Reviewed & Not Pertinent, Other Parental Family History Reviewed: Yes Children Family History Reviewed: Unknown Sibling(s) Family History Reviewed.: Unknown Medication/Allergy Home Medications: Hydroxychloroquine Sulfate [Plaquenil 200 mg Tablet] 200 mg PO BID 04/02/19 Ibuprofen [Motrin 800 mg Tablet] 800 mg PO Q8HP PRN 04/02/19 Multivitamin [Multiple Vitamins] 1 tab PO DAILY 04/02/19 Norgestimate-Ethinyl Estradiol [Ortho Tri-Cyclen] 1 tab PO DAILY 04/02/19 Allergies/Adverse Reactions: codeine [Codeine] Allergy (Verified 04/05/13 16:53) Review of Systems Constitutional: ABSENT: fever(s), headache(s), night sweats Ears: ABSENT: hearing changes Nose, Mouth, and Throat: ABSENT: mouth pain, sore throat Cardiovascular: ABSENT: edema, orthropnea Respiratory: ABSENT: dyspnea, hemoptysis Gastrointestinal: ABSENT: hematemesis, melena Genitourinary: ABSENT: dysuria, hematuria Musculoskeletal: ABSENT: deformity Integumentary: ABSENT: lesions, pruritus Neurological: ABSENT: syncope, tingling, tremor(s), vertigo Endocrine: ABSENT: polydipsia, polyphagia, polyuria Hematologic/Lymphatic: ABSENT: easy bruising Physical Exam Vital Signs: Temp Pulse Resp BP Pulse Ox 98.5 F 88 16 112/53 L 100 04/03/19 10:54 04/03/19 10:54 04/03/19 10:54 04/03/19 10:54 04/03/19 10:54 Intake & Output 04/02/19 04/03/19 04/04/19 06:59 06:59 06:59 Intake Total 4230 50 Balance 4230 50 Weight 88.904 kg 90.4 kg General appearance: PRESENT: well-developed, well-nourished Head exam: PRESENT: normocephalic Eye exam: PRESENT: EOMI, PERRLA. ABSENT: nystagmus, periorbital swelling, scleral icterus Mouth exam: PRESENT: moist, neck supple Throat exam: ABSENT: tonsillar exudate, tonsillogmegaly Neck exam: ABSENT: meningismus, tenderness, thyromegaly Respiratory exam: PRESENT: symmetrical, unlabored. ABSENT: tachypnea, wheezes Cardiovascular exam: PRESENT: RRR, +S1, +S2 GI/Abdominal exam: PRESENT: soft. ABSENT: rebound, tenderness Extremities exam: ABSENT: joint swelling Musculoskeletal exam: PRESENT: full ROM Neurological exam: PRESENT: oriented to time, oriented to situation, CN II-XII grossly intact Focused psych exam: ABSENT: restlessness Skin exam: PRESENT: normal color. ABSENT: mottled, pallor, urticaria, vesicles Results Laboratory Results: 04/03/19 05:00 04/03/19 05:00 04/03/19 04/03/19 05:00 05:00 WBC 18.7 H RBC 4.30 Hgb 12.1 Hct 37.0 MCV 86 MCH 28.2 MCHC 32.7 RDW 15.2 H Plt Count 232 Sodium 141.0 Potassium 3.7 Chloride 108 H Carbon Dioxide 24 Anion Gap 9 BUN 4 L Creatinine 0.66 Est GFR ( Amer) > 60 Glucose 91 Calcium 8.8 Phosphorus 2.1 L Magnesium 2.1 04/02/19 13:16 Clean Catch Midstream Urine Culture - Final Mixed Urogenital Elvi Assessment & Plan - Diagnosis (1) Abdominal pain Qualifiers: Abdominal location: left upper quadrant Qualified Code(s): R10.12 - Left upper quadrant pain Is this a current diagnosis for this admission?: Yes Plan: will schedule EGD to rule out peptic ulcer disease Risks, benefits and alternatives are explained to the patient in detail further recommendations to follow (2) Nausea & vomiting Is this a current diagnosis for this admission?: Yes Plan: will rule out gastric outlet obstruction she is willing to proceed further recommendations to follow - Time Time Spent: 50 to 70 Minutes
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
[2019-04-04] MEDS: NORMAL SALINE 1000 ML 1,000 ML IV PRN ×3 (03:08→19:46)
[2019-04-04] MEDS: PANTOPRAZOLE SODIUM 40 MG TABLET.DR PO SCH (05:12)
[2019-04-04] MEDS: HEPARIN SOD (PORCINE) 5,000 UNIT/ML 1 ML VIAL SUBCUT SCH ×3 (05:12→21:20)
[2019-04-04] MEDS ORDERED: DIPHENHYDRAMINE HCL 50 MG/ML VIAL ONE (07:36)
[2019-04-04] MEDS ORDERED: EPINEPHRINE INJ 1 MG/10 ML DISP.SYRIN ONE (07:37)
[2019-04-04] MEDS ORDERED: FENTANYL CITRATE INJ/PF 100 MCG/2 ML AMPUL ONE (07:37)
[2019-04-04] MEDS ORDERED: NALOXONE HCL INJ/PF 0.4 MG/1 ML SDV ONE (07:37)
[2019-04-04] MEDS ORDERED: FLUMAZENIL INJ 0.5 MG/5 ML VIAL ONE (07:37)
[2019-04-04] MEDS ORDERED: GLUCAGON,HUMAN RECOMB 1 MG INJ ONE (07:37)
[2019-04-04] MEDS ORDERED: ONDANSETRON HCL INJ/PF 4 MG/2 ML SDV ONE (07:37)
--- NOTE | 2019-04-04 07:48 | PDOC PROGRESS REPORT ---
Subjective Progress Note for:: 04/04/19 Subjective:: Patient states sharp pain much improved. Only soreness in the LUQ. No new complaints. Still nervous about EGD scheduled later today. ROS: Denies dyspnea. Some diarrhea this morning. Reason For Visit: SPLENIC INFARCT Physical Exam Vital Signs: Temp Pulse Resp BP Pulse Ox 98.2 F 78 17 106/57 L 98 04/03/19 23:54 04/03/19 23:54 04/03/19 23:54 04/03/19 23:54 04/03/19 23:54 Intake & Output 04/03/19 04/04/19 04/05/19 06:59 06:59 06:59 Intake Total 4230 3130 Balance 4230 3130 Weight 90.4 kg 90.1 kg General appearance: PRESENT: no acute distress, well-developed, well-nourished Head exam: PRESENT: normocephalic Respiratory exam: PRESENT: unlabored Neurological exam: PRESENT: alert, awake, oriented to person, oriented to place, oriented to time, oriented to situation, normal gait Psychiatric exam: PRESENT: appropriate affect Skin exam: PRESENT: normal color Results Laboratory Results: 04/03/19 05:00 04/03/19 05:00 04/02/19 13:16 Clean Catch Midstream Urine Culture - Final Mixed Urogenital Elvi Assessment & Plan - Diagnosis (1) Abdominal pain Qualifiers: Abdominal location: left upper quadrant Qualified Code(s): R10.12 - Left upper quadrant pain Is this a current diagnosis for this admission?: Yes Plan: Await EGD later today. Possibly gastritis or ulcer. Receiving PPI. Dr. Rubalcava has been consulted. (2) Splenic infarction Is this a current diagnosis for this admission?: Yes Plan: Plan to start Xarelto 15 mg po BID later tonight, if no evidence of bleeding. (On hold for EGD today) Will continue pain meds PRN. - Time Time Spent with patient: 15-24 minutes
[2019-04-04] MEDS: MIDAZOLAM 2 MG/2 ML INJ ONE ×3 (08:28→08:32)
--- NOTE | 2019-04-04 08:37 | Operative Report ---
Operative Report DATE OF SURGERY: 04/04/19 Operative Report: The risks benefits and alternatives of the procedure explained to the patient in detail and informed consent is obtained.A GIF Olympus video scope was inserted into the patient's mouth and hypopharynx, the esophagus is identified intubated and insufflated, the scope was then advanced through the esophagus stomach and duodenum, retroflexion maneuver is done, the esophagus stomach and first and second portions of the duodenum examined. PREOPERATIVE DIAGNOSIS: Left upper quadrant pain rule out possible gastric peptic ulcer POSTOPERATIVE DIAGNOSIS: Mild gastritis biopsies obtained ,no ulcers noted OPERATION: EGD with biopsy SURGEON: ALBANIA MANCIA ANESTHESIA: Moderate Sedation - 25 mg of Benadryl, 4 mg of Versed, 50 mcg of fentanyl. Conscious sedation monitoring time 30 minutes. TISSUE REMOVED OR ALTERED: As noted above. COMPLICATIONS: None. ESTIMATED BLOOD LOSS: None. INTRAOPERATIVE FINDINGS: As noted above. PROCEDURE: Patient tolerated the procedure well. No immediate postprocedure complications are noted. Patient is sent back to her room in good condition. Weight on biopsies. Resume regular diet as tolerated. Resume previous activity level. Follow-up on biopsies.
[2019-04-04 08:38] LABS: HEMATOCRIT 37.2 % (36.0-47.0); HEMOGLOBIN 12.2 g/dL (12.0-15.5); MEAN CORPUSCULAR HEMOGLOBIN 28.1 pg (27.0-33.4); MEAN CORPUSCULAR HGB CONC 32.8 g/dL (32.0-36.0); MEAN CORPUSCULAR VOLUME 86 fl (80-97); PLATELET COUNT 213 10^3/uL (150-450); RED BLOOD COUNT 4.35 10^6/uL (3.72-5.28); RED CELL DISTRIBUTION WIDTH 14.8 % (11.5-14.0); WHITE BLOOD COUNT 19.9 10^3/uL (4.0-10.5)
[2019-04-04 08:58] LABS: ANION GAP 10 (5-19); BLOOD UREA NITROGEN 3 mg/dL (7-20); CALCIUM 8.7 mg/dL (8.4-10.2); CARBON DIOXIDE 21 mmol/L (22-30); CHLORIDE 107 mmol/L (98-107); GLUCOSE 79 mg/dL (75-110); POTASSIUM 3.8 mmol/L (3.6-5.0)
[2019-04-04] MEDS: ACETAMINOPHEN 325 MG TABLET PO PRN ×2 (10:39→15:31)
[2019-04-04] MEDS: HYDROXYCHLOROQUINE SULFATE 200 MG TABLET PO SCH ×2 (10:39→21:19)
[2019-04-04] MEDS: MORPHINE SULFATE 10 MG/ML INJ IV PRN (19:46)
[2019-04-04] MEDS ORDERED: OXYCODONE-ACETAMINOPHEN 5-325 MG TABLET PO PRN (19:53)
[2019-04-04] MEDS ORDERED: MORPHINE SULFATE 10 MG/ML INJ IV PRN (19:55)
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
[2019-04-05] MEDS: NORMAL SALINE 1000 ML 1,000 ML IV PRN (02:04)
[2019-04-05] MEDS: KETOROLAC TROMETHAMINE INJ/PF 30 MG/1 ML SDV IV PRN (02:06)
[2019-04-05 03:18] LABS: C DIFFICILE GDH NEGATIVE (NEGATIVE)
[2019-04-05] MEDS: HEPARIN SOD (PORCINE) 5,000 UNIT/ML 1 ML VIAL SUBCUT SCH (05:51)
[2019-04-05] MEDS: PANTOPRAZOLE SODIUM 40 MG TABLET.DR PO SCH (05:51)
[2019-04-05 06:44] LABS: HEMATOCRIT 35.2 % (36.0-47.0); HEMOGLOBIN 11.6 g/dL (12.0-15.5); MEAN CORPUSCULAR HEMOGLOBIN 28.2 pg (27.0-33.4); MEAN CORPUSCULAR HGB CONC 32.9 g/dL (32.0-36.0); MEAN CORPUSCULAR VOLUME 86 fl (80-97); PLATELET COUNT 212 10^3/uL (150-450); RED BLOOD COUNT 4.11 10^6/uL (3.72-5.28); WHITE BLOOD COUNT 18.6 10^3/uL (4.0-10.5)
[2019-04-05 07:09] LABS: ANION GAP 10 (5-19); BLOOD UREA NITROGEN 2 mg/dL (7-20); CALCIUM 8.5 mg/dL (8.4-10.2); CARBON DIOXIDE 22 mmol/L (22-30); CHLORIDE 109 mmol/L (98-107); GLUCOSE 77 mg/dL (75-110); POTASSIUM 3.6 mmol/L (3.6-5.0)
--- NOTE | 2019-04-05 07:22 | PDOC PROGRESS REPORT ---
Subjective Progress Note for:: 04/05/19 Subjective:: Patient states procedure yesterday went well, but she does not believe the xarelto was started yet. She states that she still has discomfort/ fullness in her abdomen with pleuritic pain on deep breaths. Diarrhea all day yesterday. Reason For Visit: SPLENIC INFARCT Physical Exam Vital Signs: Temp Pulse Resp BP Pulse Ox 98.2 F 79 14 132/67 H 98 04/04/19 15:18 04/04/19 15:18 04/04/19 12:20 04/04/19 15:18 04/04/19 15:18 Intake & Output 04/04/19 04/05/19 04/06/19 06:59 06:59 06:59 Intake Total 3130 4004 Balance 3130 4004 Weight 90.1 kg 92.2 kg General appearance: PRESENT: no acute distress, well-developed, well-nourished Head exam: PRESENT: normocephalic Respiratory exam: PRESENT: unlabored Extremities exam: ABSENT: pedal edema Musculoskeletal exam: PRESENT: ambulatory Neurological exam: PRESENT: alert, awake Psychiatric exam: PRESENT: appropriate affect Skin exam: PRESENT: normal color Results Laboratory Results: 04/05/19 05:52 04/05/19 05:52 04/04/19 04/04/19 04/05/19 07:55 07:55 05:52 WBC 19.9 H 18.6 H RBC 4.35 4.11 Hgb 12.2 11.6 L Hct 37.2 35.2 L MCV 86 86 MCH 28.1 28.2 MCHC 32.8 32.9 RDW 14.8 H 15.0 H Plt Count 213 212 Sodium 138.2 Potassium 3.8 Chloride 107 Carbon Dioxide 21 L Anion Gap 10 BUN 3 L Creatinine 0.62 Est GFR ( Amer) > 60 Glucose 79 Calcium 8.7 04/05/19 05:52 WBC RBC Hgb Hct MCV MCH MCHC RDW Plt Count Sodium 141.2 Potassium 3.6 Chloride 109 H Carbon Dioxide 22 Anion Gap 10 BUN 2 L Creatinine 0.54 Est GFR ( Amer) > 60 Glucose 77 Calcium 8.5 Assessment & Plan - Diagnosis (1) Abdominal pain Qualifiers: Abdominal location: left upper quadrant Qualified Code(s): R10.12 - Left upper quadrant pain Is this a current diagnosis for this admission?: Yes Plan: EGD was without Ulcers. Await H.pylori results. (2) Splenic infarction Is this a current diagnosis for this admission?: Yes Plan: Xarelto was ordered last night, but somehow is not on MAR. I will try at=gain to start Xarelto. I would continue 15 mg po BID x 21 days, then change to 20 mg po daily. I will sign off at this point and see her again in the office in 2 weeks. Please call with any concerns. - Time Time Spent with patient: Less than 15 minutes
[2019-04-05] MEDS ORDERED: RIVAROXABAN 15 MG TABLET PO SCH (08:00)
[2019-04-05] MEDS ORDERED: LOPERAMIDE HCL 2 MG CAPSULE PO PRN (08:02)
[2019-04-05] MEDS ORDERED: LACTOBACILLUS ACIDOPHILUS 250 MG TAB PO SCH (10:00)
[2019-04-05] MEDS: ACETAMINOPHEN 325 MG TABLET PO PRN (12:21)
[2019-04-05] MEDS: HYDROXYCHLOROQUINE SULFATE 200 MG TABLET PO SCH (12:23)
[2019-04-05 14:01] VITALS: BP 136/71
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
== END 2019-04-05 13:00 | disposition home or self-care (01) | DRG 816 ==
LOC: ER 06:41 → EH 09:54 → 5 15:57
PROVIDERS: ADMIT Internal Medicine; ATTEND Internal Medicine
PROC: 0DB68ZX Excision of Stomach, Via Natural or Artificial Opening Endoscopic, Diagnostic (ICD-10-PCS; principal; 2019-04-04 08:30)
DX: D73.5 Infarction of spleen (principal); K21.9 Gastro-esophageal reflux disease without esophagitis; R76.0 Raised antibody titer; E66.9 Obesity, unspecified; L56.8 Other specified acute skin changes due to ultraviolet radiation; Z60.9 Problem related to social environment, unspecified; R10.13 Epigastric pain; Z90.49 Acquired absence of other specified parts of digestive tract; Z79.899 Other long term (current) drug therapy; Z88.6 Allergy status to analgesic agent
CPT/HCPCS: 36415; 43239; 80048; 80053; 83605; 83690; 83735; 84100; 85025; 85027; 85379; 85610; 87040; 87045; 87086; 87205; 87324; 87449; 88305; 96361; 96374; 96375; 99284; J0171; J0696; J1170; J1200; J1610; J1644; J1885; J2250; J2270; J2310; J2405; J3010; J3490; J7030

== ENCOUNTER 2019-05-21 06:12 | Observation (INO) | payer OTHER ==
[2019-05-21] MEDS ORDERED: HYDROMORPHONE HCL INJ/PF 2 MG/ML AMPULE IV ONE ×3 (06:40→09:28)
[2019-05-21] MEDS ORDERED: METOCLOPRAMIDE HCL INJ/PF 10 MG/2 ML SDV IV ONE (06:40)
--- NOTE | 2019-05-21 06:42 | ER Document Report ---
ED General - General Chief Complaint: Abdominal Pain Stated Complaint: LOWER ABDOMINAL PAIN Primary Care Provider: MIGUELINA SAAB PA-C [Primary Care Provider] - Follow up as needed Notes: 38-year-old female presents with left upper quadrant/left periumbilical abdominal pain onset yesterday significantly worse today radiating around to her back "on the inside." Positive nausea, positive vomiting. No diarrhea or fever. History of splenic infarct? Not known to have any clotting disorders. History of "photodermatitis" on Plaquenil. No clotting disorders. TRAVEL OUTSIDE OF THE [place] IN LAST 30 DAYS: No - Related Data Allergies/Adverse Reactions: codeine [Codeine] Allergy (Verified 04/05/13 16:53) Home Medications: protonix 40 mg qam. Xaralto 20 mg qday. plaquenil. bcp Past Medical History - Social History Smoking Status: Never Smoker Family History: Reviewed & Not Pertinent, Other Patient has suicidal ideation: No Patient has homicidal ideation: No Neurological Medical History: Denies: Hx Seizures Psychiatric Medical History: Denies: Hx Depression Past Surgical History: Reports: Hx Cholecystectomy, Other - tubes in ears as a child.. Denies: Hx Hysterectomy - Immunizations Hx Diphtheria, Pertussis, Tetanus Vaccination: Yes Review of Systems - Review of Systems Notes: REVIEW OF SYSTEMS GEN: Denies fever, chills, weight loss ENT: Denies sore throat, nasal discharge, ear pain EYES: Denies blurry vision, eye pain, discharge CV: Denies chest pain, palpitations, edema RESP: Denies cough, shortness of breath, wheezing GI: See HPI MSK: Denies joint pain/swelling, edema, SKIN: Denies rash, skin lesions LYMPH: Denies swollen glands/lymph nodes NEURO: Denies headache, focal weakness or numbness, dizziness PSYCH: Denies depression, suicidal or homicidal ideation PHYSICAL EXAMINATION General: Grasping abdomen and obvious pain Head: Atraumatic, normocephalic ENT: Mouth normal, oropharynx moist, no exudates or tonsillar enlargement Eyes: Conjunctiva normal, pupils equal, lids normal Neck: No JVD, supple, no guarding CVS: Normal rate, regular rhythm, no murmurs Resp: No resp distress, equal and normal breath sounds bilaterally GI: Nondistended, soft, epigastric/left upper quadrant tenderness to palpation, no rebound or guarding Ext: No deformities, no edema, normal range of motion in upper and lower ext Back: No CVA or midline TTP Skin: No rash, warm Lymphatic: No lymphadeopathy noted Neuro: Awake, alert. Face symmetric. GCS 15. Physical Exam - Vital signs Vitals: Temp Pulse Resp BP Pulse Ox 97.3 F 69 16 148/74 H 97 05/21/19 06:22 05/21/19 06:22 05/21/19 06:22 05/21/19 06:22 05/21/19 06:22 Course - Vital Signs Vital signs: Temp Pulse Resp BP Pulse Ox 97.9 F 77 20 125/71 97 05/21/19 09:16 05/21/19 09:16 05/21/19 09:16 05/21/19 09:16 05/21/19 09:16 - Laboratory Result Diagrams: 05/21/19 07:00 05/21/19 07:00 Laboratory results interpreted by me: 05/21/19 05/21/19 05/21/19 07:00 07:00 07:15 WBC 17.3 H RDW 15.4 H Lymph % (Auto) 10.0 L Absolute Neuts (auto) 14.7 H Seg Neutrophils % 85.2 H Glucose 132 H Urine Protein 30 H Urine Ketones TRACE H Discharge - Discharge Clinical Impression: Left upper quadrant pain Condition: Good Disposition: HOME, SELF-CARE Admitting Provider: Tish (Hospitalist) Unit Admitted: Medical Floor Instructions: Abdominal Pain ([facility]) Additional Instructions: There is no new pathology or disease on your CAT scan. We did see the old infarction of your spleen which is looking smaller now than it did before. No other issues were found on lab testing or imaging. Please follow-up with your regular doctor within 5 days. Referrals: MIGUELINA SAAB PA-C [Primary Care Provider] - Follow up as needed
[2019-05-21 07:38] LABS: ABSOLUTE BASOPHILS # (AUTO) 0.2 10^3/uL (0.0-0.2); ABSOLUTE LYMPHOCYTES (AUTO) 1.7 10^3/uL (0.5-4.7); ABSOLUTE MONOCYTES (AUTO) 0.7 10^3/uL (0.1-1.4); ABSOLUTE NEUT (AUTO) 14.7 10^3/uL (1.7-8.2); BASOPHILS % (AUTO) 0.9 % (0-2); EOSINOPHILS % (AUTO) 0.1 % (0-6); HEMATOCRIT 38.5 % (36.0-47.0); HEMOGLOBIN 12.8 g/dL (12.0-15.5); MEAN CORPUSCULAR HEMOGLOBIN 27.7 pg (27.0-33.4); MEAN CORPUSCULAR HGB CONC 33.2 g/dL (32.0-36.0); MEAN CORPUSCULAR VOLUME 83 fl (80-97); MONOCYTES % (AUTO) 3.8 % (3-13); PLATELET COUNT 421 10^3/uL (150-450); RED BLOOD COUNT 4.62 10^6/uL (3.72-5.28); RED CELL DISTRIBUTION WIDTH 15.4 % (11.5-14.0); SEGMENTED NEUTROPHILS % (AUTO) 85.2 % (42-78); TOTAL CELLS COUNTED % (AUTO) 100 %; WHITE BLOOD COUNT 17.3 10^3/uL (4.0-10.5)
[2019-05-21 07:42] LABS: APPEARANCE,URINE SLIGHTLY-CLOUDY; BILIRUBIN,URINE NEGATIVE (NEGATIVE); COLOR,URINE YELLOW; GLUCOSE, URINE NEGATIVE (NEGATIVE); KETONES,URINE TRACE mg/dL (NEGATIVE); LEUKOCYTE ESTERASE,URINE NEGATIVE (NEGATIVE); NITRITE,URINE NEGATIVE (NEGATIVE); PROTEIN,URINE 30 mg/dL (NEGATIVE); URINE SPECIFIC GRAVITY 1.025; UROBILINOGEN,URINE NEGATIVE mg/dL (<2.0)
[2019-05-21 07:51] LABS: ALBUMIN 4.4 g/dL (3.5-5.0); ALKALINE PHOSPHATASE 85 U/L (38-126); ANION GAP 10 (5-19); ASPARTATE AMINO TRANSFERASE 24 U/L (14-36); BILIRUBIN,DIRECT 0.2 mg/dL (0.0-0.4); BILIRUBIN,TOTAL 0.3 mg/dL (0.2-1.3); BLOOD UREA NITROGEN 9 mg/dL (7-20); CARBON DIOXIDE 26 mmol/L (22-30); CHLORIDE 103 mmol/L (98-107); GLUCOSE 132 mg/dL (75-110); POTASSIUM 4.2 mmol/L (3.6-5.0); TOTAL PROTEIN 7.6 g/dL (6.3-8.2)
--- NOTE | 2019-05-21 08:56 | RADIOLOGY REPORT (SQ) ---
EXAM DESCRIPTION: CT ABD/PELVIS WITH IV ONLY COMPLETED DATE/TIME: 05/21/2019 8:13 am REASON FOR STUDY: LUQ pain h/o spleen infarct COMPARISON: 04/01/2019 TECHNIQUE: CT scan of the abdomen and pelvis performed using helical scanning technique with dynamic intravenous contrast injection. No oral contrast. Images reviewed with lung, soft tissue, and bone windows. Reconstructed coronal and sagittal MPR images reviewed. Delayed images for evaluation of the urinary system also acquired. All images stored on PACS. All CT scanners at this facility use dose modulation, iterative reconstruction, and/or weight based d osing when appropriate to reduce radiation dose to as low as reasonably achievable (ALARA). [facility]: Dose Right [facility]: CareDose [facility]: Dose Right [facility]: Teradose 4D [facility]: [employer] [place] CONTRAST TYPE AND DOSE: contrast/concentration: Isovue 350.00 mg/ml; Total Contrast Delivered: 96.0 ml; Total Saline Delivered: 71.0 ml RENAL FUNCTION: None required. The patient is less than 50 years old. RADIATION DOSE: CT Rad equipment meets quality standard of care and radiation dose reduction techniq ues were employed. CTDIvol: 6.9 - 6.9 mGy. DLP: 769 mGy-cm.. LIMITATIONS: None. FINDINGS: LOWER CHEST: No significant findings. No nodules or infiltrates. LIVER: Normal size. No masses. No dilated ducts. SPLEEN: Heterogeneous enhancement of the spleen with lobulated lateral aspect. The spleen measures a pproximately 8.4 by 3.5 cm, previously 9.5 by 4.2 cm. PANCREAS: No masses. No significant calcifications. No adjacent inflammation or peripancreatic fluid collections. Pancreatic duct not dilated. GALLBLADDER: Surgically absent. ADRENAL GLANDS: No significant masses or asymmetry. RIGHT KIDNEY AND URETER: No solid masses. No significant calcifications. No hydronephrosis or hyd roureter. LEFT KIDNEY AND URETER: No solid masses. No significant calcifications. No hydronephrosis or hydr oureter. AORTA AND VESSELS: No aneurysm. No dissection. Renal arteries, SMA, celiac without stenosis. RETROPERITONEUM: No retroperitoneal adenopathy, hemorrhage or masses. BOWEL AND PERITONEAL CAVITY: No masses or inflammatory changes. No free fluid or peritoneal masses. APPENDIX: Not visualized. PELVIS: Decompressed urinary bladder. No free fluid. No mass or adenopathy. ABDOMINAL WALL: No masses. No hernias. Umbilical piercing. BONES: No acute bony abnormality. No suspicious osseous lesions. OTHER: No other significant finding. IMPRESSION: 1. Irregular splenic enhancement and contour with decreased size compared to prior, lik ada sequelae of previously described prior splenic infarct. Underlying splenic lesion is not entirel y excluded. Consider additional follow-up to ensure expected change. 2. No other evidence of acute intra-abdominal/pelvic process. TECHNICAL DOCUMENTATION: JOB ID: [id number] Quality ID # [id number]: Final reports with documentation of one or more dose reduction techniques (e.g., Au tomated exposure control, adjustment of the mA and/or kV according to patient size, use of iterative reconstruction technique) 2010 [employer]- All Rights Reserved Reading location - IP/workstation name: [email or web address]
--- NOTE | 2019-05-21 09:45 | RADIOLOGY REPORT (SQ) ---
EXAM DESCRIPTION: CHEST 2 VIEWS COMPLETED DATE/TIME: 05/21/2019 9:31 am REASON FOR STUDY: Lef tlower CP COMPARISON: None. EXAM PARAMETERS: NUMBER OF VIEWS: two views TECHNIQUE: Digital Frontal and Lateral radiographic views of the chest acquired. RADIATION DOSE: NA LIMITATIONS: none FINDINGS: LUNGS AND PLEURA: No opacities, masses or pneumothorax. No pleural effusion. MEDIASTINUM AND HILAR STRUCTURES: No masses or contour abnormalities. HEART AND VASCULAR STRUCTURES: Heart normal size. No evidence for failure. BONES: No acute findings. HARDWARE: None in the chest. Prior cholecystectomy. OTHER: No other significant finding. IMPRESSION: NO ACUTE RADIOGRAPHIC FINDING IN THE CHEST. TECHNICAL DOCUMENTATION: JOB ID: [id number] [employer]- All Rights Reserved Reading location - IP/workstation name: [email or web address]
--- NOTE | 2019-05-21 10:04 | EKG REPORT ---
SEVERITY:- BORDERLINE ECG - SINUS RHYTHM BORDERLINE T ABNORMALITIES, INFERIOR LEADS : Confirmed by: Edna Quinones 21-May-2019 10:04:33
[2019-05-21] MEDS ORDERED: FAMOTIDINE INJ/PF 20 MG/2 ML SDV IV ONE (11:47)
[2019-05-21 13:12] LABS: URINE AMPHETAMINES SCREEN NEGATIVE; URINE BARBITURATES SCREEN NEGATIVE; URINE BENZODIAZEPINES SCREEN NEGATIVE; URINE COCAINE SCREEN NEGATIVE; URINE MARIJUANA (THC) SCREEN NEGATIVE; URINE METHADONE SCREEN NEGATIVE; URINE PHENCYCLIDINE SCREEN NEGATIVE
[2019-05-21] MEDS: OXYCODONE-ACETAMINOPHEN 5-325 MG TABLET PO PRN ×2 (15:13→21:46)
[2019-05-21] MEDS: NORMAL SALINE 1000 ML 1,000 ML IV PRN (15:14)
--- NOTE | 2019-05-21 15:15 | PDOC CONSULTATION ---
Consultation Consult Date: 05/21/19 Provider Consulted: AVIVA BRICE Consult reason:: Abdominal pains with history of splenic infarct History of Present Illness Admission Date/PCP: 05/21/19 12:00 MIGUELINA SAAB PA-C History of Present Illness: SHASHI BETH is a 38 year old female with history of a splenic infarct in March and had a EGD compatible with gastritis in March. He she did have some left upper quadrant pains and then. Last night she ate some raw cookie dough and woke up this morning with severe left upper quadrant pains radiating to the back with some nausea and vomiting. CAT scan of the abdomen revealed stable splenic infarct which appears to be a little bit less in size compared to the one done in March 2019. She denies any fever no chills. Taking Protonix for abdominal pain symptoms given by post EGD. She is going to a lot of stress though it is not as much as when she had the initial admission in March. 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 No surgical indication for this condition at this time Psychiatric Medical History: Denies: Depression Past Surgical History Past Surgical History: Reports: Cholecystectomy, Other - tubes in ears as a child. Denies: Hysterectomy Social History Smoking Status: Never Smoker Frequency of Alcohol Use: Occasional Hx Recreational Drug Use: No Drugs: None Hx Prescription Drug Abuse: No Family History Family History: Reviewed & Not Pertinent, Other Parental Family History Reviewed: Yes Children Family History Reviewed: No Sibling(s) Family History Reviewed.: No Medication/Allergy Home Medications: Multivitamin [Multiple Vitamins] 1 tab PO DAILY 04/02/19 Pantoprazole Sodium [Protonix [address] Tablet] 40 mg PO Q6AM #60 tablet.dr 04/05/19 Hydroxychloroquine Sulfate [Plaquenil 200 mg Tablet] 400 mg PO DAILY 05/21/19 Norgestimate-Ethinyl Estradiol [Tri-Sprintec] 1 each PO DAILY 05/21/19 Rivaroxaban [Xarelto] 20 mg PO DAILY 05/21/19 Allergies/Adverse Reactions: codeine [Codeine] Allergy (Verified 04/05/13 16:53) Review of Systems Constitutional: PRESENT: as per HPI Gastrointestinal: PRESENT: as per HPI Physical Exam Vital Signs: Temp Pulse Resp BP Pulse Ox 97.9 F 77 20 125/71 97 05/21/19 09:16 05/21/19 09:16 05/21/19 09:16 05/21/19 09:16 05/21/19 09:16 Intake & Output 05/20/19 05/21/19 05/22/19 06:59 06:59 06:59 Weight 84.5 kg Exam: Abdomen is soft with mild tenderness in the left upper quadrant and epigastric areas. Results Laboratory Results: 05/21/19 07:00 05/21/19 07:00 05/21/19 05/21/19 05/21/19 07:00 07:00 07:15 WBC 17.3 H RBC 4.62 Hgb 12.8 Hct 38.5 MCV 83 MCH 27.7 MCHC 33.2 RDW 15.4 H Plt Count 421 Seg Neutrophils % 85.2 H Sodium 138.7 Potassium 4.2 Chloride 103 Carbon Dioxide 26 Anion Gap 10 BUN 9 Creatinine 0.70 Est GFR ( Amer) > 60 Glucose 132 H Lactic Acid Calcium 10.0 Total Bilirubin 0.3 AST 24 Alkaline Phosphatase 85 Total Protein 7.6 Albumin 4.4 Lipase 126.0 Urine Color YELLOW Urine Appearance SLIGHTLY-CLOUDY Urine pH 6.0 Ur Specific [place] 1.025 Urine Protein 30 H Urine Glucose (UA) NEGATIVE Urine Ketones TRACE H Urine Blood NEGATIVE Urine Nitrite NEGATIVE Ur Leukocyte Esterase NEGATIVE Urine WBC (Auto) 4 Urine RBC (Auto) 3 05/21/19 13:15 WBC RBC Hgb Hct MCV MCH MCHC RDW Plt Count Seg Neutrophils % Sodium Potassium Chloride Carbon Dioxide Anion Gap BUN Creatinine Est GFR ( Amer) Glucose Lactic Acid 1.3 Calcium Total Bilirubin AST Alkaline Phosphatase Total Protein Albumin Lipase Urine Color Urine Appearance Urine pH Ur Specific [place] Urine Protein Urine Glucose (UA) Urine Ketones Urine Blood Urine Nitrite Ur Leukocyte Esterase Urine WBC (Auto) Urine RBC (Auto) 05/21/19 07:00 Troponin I < 0.012 Impressions: Abdomen/Pelvis CT 05/21/19 06:39 IMPRESSION: 1. Irregular splenic enhancement and contour with decreased size compared to prior, likely sequelae of previously described prior splenic infarct. Underlying splenic lesion is not entirely excluded. Consider additional follow-up to ensure expected change. 2. No other evidence of acute intra-abdominal/pelvic process. Chest X-Ray 05/21/19 09:11 IMPRESSION: NO ACUTE RADIOGRAPHIC FINDING IN THE CHEST. 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 Also had EGD by Dr. Gómez which showed gastritis esophagitis. She is on Protonix for this. She was also placed on Xarelto by Dr. Morrow. She had raw cookie dough last night and woke up this morning with epigastric and left upper quadrant pains radiating to the back with nausea and vomiting. CT scan showed splenic infarct but appears to be stable and and smaller.. Abdomen is soft with tenderness in the epigastric and left upper quadrant areas. Impression is abdominal pains etiology unclear though it appears unlikely due to the splenic infarct which she had in March with infarct being stable and actually appears to be smaller in size at this time. There is no surgical abdomen at this time. Recommendations Continue with anti-reflux medication. There is no evidence of surgical abdomen at this time. We will sign off but call us for any questions
[2019-05-21] MEDS: ONDANSETRON HCL INJ/PF 4 MG/2 ML SDV IV PRN ×2 (15:29→21:46)
--- NOTE | 2019-05-21 16:54 | PDOC H&P ---
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 Patient was apparently fine until yesterday when she started having increasing left upper quadrant pain associated multiple episodes of vomiting. She says that she had a total of 6 episodes of vomiting and a few of them were bilious. She denies diarrhea. Denies chest pain or shortness of breath. Upon encounter, she has minimal left upper quadrant/left periumbilical direct tenderness. Otherwise no rebound or peritoneal signs. She says she still has nausea and just vomited before this encounter. She says she did eat raw cookie dough yesterday. Past Medical History Neurological Medical History: Denies: Seizures Psychiatric Medical History: Denies: Depression Past Surgical History Past Surgical History: Reports: Cholecystectomy, Other - tubes in ears as a child. Denies: Hysterectomy Social History Smoking Status: Never Smoker Frequency of Alcohol Use: Occasional Hx Recreational Drug Use: No Drugs: None Hx Prescription Drug Abuse: No Family History Family History: Reviewed & Not Pertinent, Other Parental Family History Reviewed: Yes Children Family History Reviewed: No Sibling(s) Family History Reviewed.: No Medication/Allergy Home Medications: Multivitamin [Multiple Vitamins] 1 tab PO DAILY 04/02/19 Pantoprazole Sodium [Protonix [address] Tablet] 40 mg PO Q6AM #60 tablet. 04/05/19 Hydroxychloroquine Sulfate [Plaquenil 200 mg Tablet] 400 mg PO DAILY 05/21/19 Norgestimate-Ethinyl Estradiol [Tri-Sprintec] 1 each PO DAILY 05/21/19 Rivaroxaban [Xarelto] 20 mg PO DAILY 05/21/19 Allergies/Adverse Reactions: codeine [Codeine] Allergy (Verified 04/05/13 16:53) Review of Systems All systems: reviewed and no additional remarkable complaints except as stated - As mentioned in HPI Physical Exam Vital Signs: Temp Pulse Resp BP Pulse Ox 97.9 F 77 20 125/71 97 05/21/19 09:16 05/21/19 09:16 05/21/19 09:16 05/21/19 09:16 05/21/19 09:16 Intake & Output 05/20/19 05/21/19 05/22/19 06:59 06:59 06:59 Weight 186 lb 4.65 oz Results Laboratory Results: 05/21/19 07:00 05/21/19 07:00 05/21/19 05/21/19 05/21/19 07:00 07:00 07:15 WBC 17.3 H RBC 4.62 Hgb 12.8 Hct 38.5 MCV 83 MCH 27.7 MCHC 33.2 RDW 15.4 H Plt Count 421 Seg Neutrophils % 85.2 H Sodium 138.7 Potassium 4.2 Chloride 103 Carbon Dioxide 26 Anion Gap 10 BUN 9 Creatinine 0.70 Est GFR ( Amer) > 60 Glucose 132 H Calcium 10.0 Total Bilirubin 0.3 AST 24 Alkaline Phosphatase 85 Total Protein 7.6 Albumin 4.4 Lipase 126.0 Urine Color YELLOW Urine Appearance SLIGHTLY-CLOUDY Urine pH 6.0 Ur Specific [place] 1.025 Urine Protein 30 H Urine Glucose (UA) NEGATIVE Urine Ketones TRACE H Urine Blood NEGATIVE Urine Nitrite NEGATIVE Ur Leukocyte Esterase NEGATIVE Urine WBC (Auto) 4 Urine RBC (Auto) 3 05/21/19 07:00 Troponin I < 0.012 Impressions: Abdomen/Pelvis CT 05/21/19 06:39 IMPRESSION: 1. Irregular splenic enhancement and contour with decreased size compared to prior, likely sequelae of previously described prior splenic infarct. Underlying splenic lesion is not entirely excluded. Consider additi onal follow-up to ensure expected change. 2. No other evidence of acute intra-abdominal/pelvic process. Chest X-Ray 05/21/19 09:11 IMPRESSION: NO ACUTE RADIOGRAPHIC FINDING IN THE CHEST. Assessment and Plan - Diagnosis (1) Abdominal pain Qualifiers: Abdominal location: left upper quadrant Qualified Code(s): R10.12 - Left upper quadrant pain Is this a current diagnosis for this admission?: Yes Plan: CT of the abdomen and pelvis shows stable infarcts of the slightly smaller in size. No signs of acute abdomen. Will keep patient as observation for possible acute gastritis. Will start her on IV fluids as she still had nausea and vomiting prior to this encounter. Start IV fluids and Zofran as needed. (2) Nausea & vomiting Qualifiers: Vomiting Intractability: non-intractable Is this a current diagnosis for this admission?: Yes Plan: As per #1. (3) Partial splenic infarction Is this a current diagnosis for this admission?: Yes Plan: Resume Al. - Time Time Spent with patient: 25-34 minutes
[2019-05-21] MEDS ORDERED: RIVAROXABAN 15 MG TABLET PO SCH (17:00)
[2019-05-21] MEDS: KETOROLAC TROMETHAMINE INJ/PF 30 MG/1 ML SDV IV PRN (18:01)
[2019-05-21] MEDS ORDERED: RIVAROXABAN 10 MG TABLET PO ONE (19:00)
[2019-05-22] MEDS: OXYCODONE-ACETAMINOPHEN 5-325 MG TABLET PO PRN ×2 (02:11→22:39)
[2019-05-22] MEDS: ONDANSETRON HCL INJ/PF 4 MG/2 ML SDV IV PRN (02:12)
[2019-05-22] MEDS: ACETAMINOPHEN 325 MG TABLET PO PRN ×2 (05:13→14:21)
[2019-05-22] MEDS: PANTOPRAZOLE SODIUM 40 MG TABLET.DR PO SCH (05:13)
[2019-05-22] MEDS: KETOROLAC TROMETHAMINE INJ/PF 30 MG/1 ML SDV IV PRN ×2 (09:25→19:51)
[2019-05-22] MEDS: MULTIVITAMIN TABLET PO SCH (09:26)
[2019-05-22] MEDS: RIVAROXABAN 10 MG TABLET PO SCH (09:26)
[2019-05-22] MEDS ORDERED: NORGESTIMATE ETHINYL ESTRADIOL PO SCH (10:00)
[2019-05-22] MEDS: NORMAL SALINE 1000 ML 1,000 ML IV PRN ×2 (10:11→22:30)
--- NOTE | 2019-05-22 10:20 | PDOC CONSULTATION ---
Consultation Consult Date: 05/22/19 Provider Consulted: ROGER GLOVER Consult reason:: Hematology/Oncology consultation was requested for patient with history of splenic infarcts and new abdonimal pain. History of Present Illness Admission Date/PCP: 05/21/19 12:00 MIGUELINA ASAB PA-C History of Present Illness: SHASHI BETH is a 38 year old female who was diagnosed in splenic infarcts in Mar. At that time, she had abdominal pain, vomiting, and abnormal CT showing heterogeneous, enlarged spleen with possible infarcts. She was started on Xarelto and has been stable without pain since Apr. She states that 3 days ago, she missed 1 dose (day) of her Xarelto. Yesterday, she began having severe pain in the LUQ similar to previous admission. She also had 4 bouts of vomiting at home before presenting to the ED. Evaluation has been unremarkable, including CT which shows improvement in size of the spleen. No evidence of clots, bleeding, or other pathology. She states that she is feeling better today, with pain meds and nausea meds. She is quite concerned as to the cause of these symptoms. She has continued her Xarelto. Past Medical History Neurological Medical History: Denies: Seizures Skin Medical History: Reports: Other - photodermatitis Psychiatric Medical History: Denies: Depression Past Surgical History Past Surgical History: Reports: Cholecystectomy, Other - tubes in ears as a child. Denies: Hysterectomy Social History Smoking Status: Never Smoker Frequency of Alcohol Use: Rare Hx Recreational Drug Use: No Drugs: None Hx Prescription Drug Abuse: No Family History Family History: Other Parental Family History Reviewed: Yes Children Family History Reviewed: No Sibling(s) Family History Reviewed.: Yes Medication/Allergy Home Medications: Multivitamin [Multiple Vitamins] 1 tab PO DAILY 04/02/19 Pantoprazole Sodium [Protonix [address] Tablet] 40 mg PO Q6AM #60 tablet.dr 04/05/19 Hydroxychloroquine Sulfate [Plaquenil 200 mg Tablet] 400 mg PO DAILY 05/21/19 Norgestimate-Ethinyl Estradiol [Tri-Sprintec] 1 each PO DAILY 05/21/19 Rivaroxaban [Xarelto] 20 mg PO DAILY 05/21/19 Allergies/Adverse Reactions: codeine [Codeine] Allergy (Verified 04/05/13 16:53) Review of Systems Constitutional: ABSENT: fever(s), headache(s) Eyes: ABSENT: visual disturbances Ears: ABSENT: hearing changes Nose, Mouth, and Throat: ABSENT: sore throat Cardiovascular: ABSENT: chest pain Respiratory: ABSENT: dyspnea Gastrointestinal: PRESENT: abdominal pain, nausea, vomiting. ABSENT: constipation, diarrhea Genitourinary: ABSENT: dysuria Musculoskeletal: ABSENT: back pain Integumentary: ABSENT: pruritus Neurological: ABSENT: weakness Psychiatric: PRESENT: anxiety Hematologic/Lymphatic: ABSENT: easy bleeding Physical Exam Vital Signs: Temp Pulse Resp BP Pulse Ox 97.7 F 74 16 127/66 H 99 05/22/19 08:00 05/22/19 08:00 05/22/19 08:00 05/22/19 08:00 05/22/19 08:00 Intake & Output 05/21/19 05/22/19 05/23/19 06:59 06:59 06:59 Weight 84.5 kg 84 kg General appearance: PRESENT: no acute distress, well-developed, well-nourished Exam: 38 year old female. Head exam: PRESENT: normocephalic Eye exam: PRESENT: EOMI, PERRLA Mouth exam: PRESENT: moist, tongue midline Neck exam: ABSENT: lymphadenopathy, tenderness Respiratory exam: PRESENT: clear to auscultation armand, unlabored Cardiovascular exam: PRESENT: RRR GI/Abdominal exam: PRESENT: normal bowel sounds, soft, tenderness - LUQ Extremities exam: ABSENT: pedal edema Musculoskeletal exam: PRESENT: ambulatory Neurological exam: PRESENT: alert, awake Psychiatric exam: PRESENT: appropriate affect Skin exam: PRESENT: normal color Results Laboratory Results: 05/21/19 07:00 05/21/19 07:00 05/21/19 13:15 Lactic Acid 1.3 05/21/19 07:00 Troponin I < 0.012 Impressions: Abdomen/Pelvis CT 05/21/19 06:39 IMPRESSION: 1. Irregular splenic enhancement and contour with decreased size compared to prior, likely sequelae of previously described prior splenic infarct. Underlying splenic lesion is not entirely excluded. Consider ad ditional follow-up to ensure expected change. 2. No other evidence of acute intra-abdominal/pelvic process. Chest X-Ray 05/21/19 09:11 IMPRESSION: NO ACUTE RADIOGRAPHIC FINDING IN THE CHEST. Status: Image reviewed by me Assessment & Plan - Diagnosis (1) Abdominal pain Qualifiers: Abdominal location: left upper quadrant Qualified Code(s): R10.12 - Left upper quadrant pain Is this a current diagnosis for this admission?: Yes Plan: Unknown cause. The spleen actually is improved. No evidence of new pathology or infarcts. (2) Partial splenic infarction Is this a current diagnosis for this admission?: No Plan: I doubt that missing 1 dose of her Xarelto caused her abdominal pain. She should continue this. I will check a D-Dimer today. I will see her again as outpatient as previously scheduled in about 4-6 weeks. - Plan Summary Plan Summary: Please call me with any further questions or concerns. OK with discharge when patient medically able.
[2019-05-22] MEDS: HYDROXYCHLOROQUINE SULFATE 200 MG TABLET PO SCH (14:23)
--- NOTE | 2019-05-22 16:55 | PDOC PROGRESS REPORT ---
Subjective Progress Note for:: 05/22/19 Subjective:: Patient is still having pain. She states that it is not as severe as the previous episode in March. It is currently added 06/20. The Toradol does seem to help. She also reports that a significant amount of personal stress that she has been under. Reason For Visit: INTRACTABLE ABDOMINAL PAIN/ N/V Physical Exam Vital Signs: Temp Pulse Resp BP Pulse Ox 98.2 F 79 16 144/72 H 100 05/22/19 14:46 05/22/19 14:46 05/22/19 14:46 05/22/19 14:46 05/22/19 14:46 Intake & Output 05/21/19 05/22/19 05/23/19 06:59 06:59 06:59 Intake Total 1000 240 Balance 1000 240 Weight 84.5 kg 84 kg General appearance: PRESENT: cooperative, mild distress, well-developed Head exam: PRESENT: atraumatic, normocephalic Ear exam: PRESENT: normal external ear exam. ABSENT: bleeding, drainage Mouth exam: PRESENT: moist, tongue midline Respiratory exam: PRESENT: clear to auscultation armand, symmetrical, unlabored. ABSENT: rales, rhonchi, tachypnea, wheezes Cardiovascular exam: PRESENT: RRR, +S1, +S2, systolic murmur - 2/6 GI/Abdominal exam: PRESENT: normal bowel sounds, soft, tenderness - Left upper quadrant. ABSENT: distended, guarding Rectal exam: PRESENT: deferred Gentrourinary exam: ABSENT: indwelling catheter Extremities exam: ABSENT: pedal edema Neurological exam: PRESENT: alert, awake, oriented to person, oriented to place, oriented to time, oriented to situation, CN II-XII grossly intact Psychiatric exam: PRESENT: flat affect. ABSENT: agitated, anxious Results Laboratory Results: 05/21/19 07:00 05/21/19 07:00 05/21/19 13:15 Blood Blood Culture (PCR) - Final Staphylococcus Species 05/21/19 07:00 Troponin I < 0.012 Impressions: Abdomen/Pelvis CT 05/21/19 06:39 IMPRESSION: 1. Irregular splenic enhancement and contour with decreased size compared to prior, likely sequelae of previously described prior splenic infa rct. Underlying splenic lesion is not entirely excluded. Consider additional follow-up to ensure expected change. 2. No other evidence of acute intra-abdominal/pelvic process. Chest X-Ray 05/21/19 09:11 IMPRESSION: NO ACUTE RADIOGRAPHIC FINDING IN THE CHEST. Assessment and Plan - Diagnosis (1) Abdominal pain Qualifiers: Abdominal location: left upper quadrant Qualified Code(s): R10.12 - Left upper quadrant pain Is this a current diagnosis for this admission?: Yes (2) Nausea & vomiting Qualifiers: Vomiting Intractability: non-intractable Is this a current diagnosis for this admission?: Yes (3) Partial splenic infarction Is this a current diagnosis for this admission?: No (4) Radha-1 antibody positive Is this a current diagnosis for this admission?: Yes (5) Leukocytosis Qualifiers: Leukocytosis type: unspecified Qualified Code(s): D72.829 - Elevated white blood cell count, unspecified Is this a current diagnosis for this admission?: Yes - Plan Summary Summary: 05/22/2019 Splenic infarct-this is the second episode for this patient. Dr. Mcgowan is following. 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 Hematology has seen the patient for coagulopathies. She is currently on Xarelto. Consider aspirin therapy as well. Abdominal pain with nausea and vomiting-this seems to be improving. Patient does have a white blood cell count elevation and it is slightly higher this afternoon. She is on proton pump inhibitor therapy for possible gastritis. She has been under a great deal of personal stress and this could certainly be contributing to her gastritis which can cause abdominal pain with nausea and vomiting. Continue Protonix. Leukocytosis-the patient's white blood cell count is increased slightly. Her urinalysis did not have leukocyte esterase present but there were a small amount of white blood cells and bacteria seen by microscopy. Urine culture is pending. The patient has been afebrile. 1 bottle from her blood cultures is positive for coagulase-negative staph. This is most likely a contaminant. I have not started her on antibiotics yet as there is no focus of infection. We will con tinue to monitor cultures. If her white blood cell count increases any further I will add antibiotic therapy. - Time Time Spent with patient: 15-24 minutes Medications reviewed and adjusted accordingly: Yes Anticipated discharge: Home
[2019-05-22 18:21] LABS: ABSOLUTE BASOPHILS # (AUTO) 0.1 10^3/uL (0.0-0.2); ABSOLUTE LYMPHOCYTES (AUTO) 2.3 10^3/uL (0.5-4.7); ABSOLUTE MONOCYTES (AUTO) 1.9 10^3/uL (0.1-1.4); ABSOLUTE NEUT (AUTO) 15.1 10^3/uL (1.7-8.2); BASOPHILS % (AUTO) 0.4 % (0-2); EOSINOPHILS % (AUTO) 0.1 % (0-6); HEMATOCRIT 37.1 % (36.0-47.0); HEMOGLOBIN 12.1 g/dL (12.0-15.5); LYMPHOCYTES % (AUTO) 11.9 % (13-45); MEAN CORPUSCULAR HEMOGLOBIN 27.6 pg (27.0-33.4); MEAN CORPUSCULAR HGB CONC 32.7 g/dL (32.0-36.0); MEAN CORPUSCULAR VOLUME 84 fl (80-97); MONOCYTES % (AUTO) 9.7 % (3-13); PLATELET COUNT 355 10^3/uL (150-450); RED BLOOD COUNT 4.41 10^6/uL (3.72-5.28); RED CELL DISTRIBUTION WIDTH 15.2 % (11.5-14.0); SEGMENTED NEUTROPHILS % (AUTO) 77.9 % (42-78); TOTAL CELLS COUNTED % (AUTO) 100 %; WHITE BLOOD COUNT 19.3 10^3/uL (4.0-10.5)
[2019-05-22] MEDS: ASPIRIN 81 MG TABLET, ENT COATED PO SCH (22:39)
[2019-05-23] MEDS: PANTOPRAZOLE SODIUM 40 MG TABLET.DR PO SCH ×2 (05:23→09:37)
[2019-05-23 07:03] LABS: HEMATOCRIT 36.5 % (36.0-47.0); HEMOGLOBIN 11.9 g/dL (12.0-15.5); MEAN CORPUSCULAR HEMOGLOBIN 27.3 pg (27.0-33.4); MEAN CORPUSCULAR HGB CONC 32.7 g/dL (32.0-36.0); MEAN CORPUSCULAR VOLUME 83 fl (80-97); PLATELET COUNT 337 10^3/uL (150-450); RED BLOOD COUNT 4.38 10^6/uL (3.72-5.28); RED CELL DISTRIBUTION WIDTH 15.3 % (11.5-14.0)
[2019-05-23] MEDS: OXYCODONE-ACETAMINOPHEN 5-325 MG TABLET PO PRN ×3 (07:25→19:39)
[2019-05-23 08:01] LABS: ABSOLUTE LYMPHOCYTES# (MANUAL) 1.4 10^3/uL (0.5-4.7); ABSOLUTE MONOCYTES # (MANUAL) 1.4 10^3/uL (0.1-1.4); BASOPHILS % (MANUAL) 0 % (0-2); EOSINOPHILS % (MANUAL) 0 % (0-6); LYMPHOCYTES % (MANUAL) 7 % (13-45); MONOCYTES % (MANUAL) 7 % (3-13); SEGMENTED NEUTROPHILS % (MAN) 86 % (42-78); TOTAL CELLS COUNTED 100
[2019-05-23 08:02] LABS: ANISOCYTOSIS SLIGHT; PLATELET COMMENT ADEQUATE
[2019-05-23] MEDS: MULTIVITAMIN TABLET PO SCH (09:37)
[2019-05-23] MEDS: HYDROXYCHLOROQUINE SULFATE 200 MG TABLET PO SCH (09:38)
[2019-05-23] MEDS: RIVAROXABAN 10 MG TABLET PO SCH (09:38)
--- NOTE | 2019-05-23 10:15 | PDOC PROGRESS REPORT ---
Subjective Progress Note for:: 05/23/19 Subjective:: The patient has multiple clinical issues to discuss today. In general she states that she has an general feeling of being unwell. She states that her left-sided abdominal pain is not that much better. She started her menses and this can worsen her headaches as well. When discussing her murmur she revealed that she saw physician relations manager years ago that said that she had a slight murmur. We then proceeded to review other symptoms and she states that intermittently she has a fluttering sensation with her heart. She has never palpated her pulse to see if the rhythm is regular or not. She states that it comes and goes. Reason For Visit: INTRACTABLE ABDOMINAL PAIN/ N/V Physical Exam Vital Signs: Temp Pulse Resp BP Pulse Ox 98.9 F 76 20 119/61 97 05/23/19 08:27 05/23/19 08:27 05/23/19 08:27 05/23/19 08:27 05/23/19 08:27 Intake & Output 05/22/19 05/23/19 05/24/19 06:59 06:59 06:59 Intake Total 1000 1340 300 Balance 1000 1340 300 Weight 84 kg 82.1 kg General appearance: PRESENT: cooperative, mild distress, well-developed Head exam: PRESENT: atraumatic, normocephalic Neck exam: PRESENT: full ROM. ABSENT: meningismus Respiratory exam: PRESENT: clear to auscultation armand, symmetrical, unlabored. ABSENT: rales, rhonchi, tachypnea, wheezes Cardiovascular exam: PRESENT: RRR, +S1, +S2, systolic murmur - 2/6 Pulses: PRESENT: normal radial pulses GI/Abdominal exam: PRESENT: normal bowel sounds, soft, tenderness - Left upper quadrant. ABSENT: distended, guarding, organolmegaly Rectal exam: PRESENT: deferred Gentrourinary exam: ABSENT: indwelling catheter Extremities exam: ABSENT: joint swelling, pedal edema Musculoskeletal exam: PRESENT: ambulatory, normal inspection. ABSENT: deformity Neurological exam: PRESENT: alert, awake, oriented to person, oriented to place, oriented to time, oriented to situation, CN II-XII grossly intact Psychiatric exam: PRESENT: anxious, depressed - Depressed affect. ABSENT: agitated Focused psych exam: ABSENT: delusional, restlessness Skin exam: PRESENT: dry, normal color, warm. ABSENT: rash Results Laboratory Results: 05/23/19 06:22 05/21/19 07:00 05/22/19 05/23/19 17:24 06:22 WBC 19.3 H 20.0 H RBC 4.41 4.38 Hgb 12.1 11.9 L Hct 37.1 36.5 MCV 84 83 MCH 27.6 27.3 MCHC 32.7 32.7 RDW 15.2 H 15.3 H Plt Count 355 337 Seg Neutrophils % 77.9 Not Reportable 05/21/19 13:15 Blood Blood Culture (PCR) - Final Staphylococcus Species 05/21/19 07:00 Troponin I < 0.012 Impressions: Abdomen/Pelvis CT 05/21/19 06:39 IMPRESSION: 1. Irregular splenic enhancement and contour with decreased size compared to prior, likely sequelae of previously described prior splenic infarct. Underlying splenic lesion is not entirely excluded. Consider additional follow-up to ensure expected change. 2. No other evidence of acute intra-abdominal/pelvic process. Chest X-Ray 05/21/19 09:11 IMPRESSION: NO ACUTE RADIOGRAPHIC FINDING IN THE CHEST. Assessment and Plan - Diagnosis (1) Abdominal pain Qualifiers: Abdominal location: left upper quadrant Qualified Code(s): R10.12 - Left upper quadrant pain Is this a current diagnosis for this admission?: Yes (2) Nausea & vomiting Qualifiers: Vomiting Intractability: non-intractable Is this a current diagnosis for this admission?: Yes (3) Partial splenic infarction Is this a current diagnosis for this admission?: No (4) Radha-1 antibody positive Is this a current diagnosis for this admission?: Yes (5) Leukocytosis Qualifiers: Leukocytosis type: unspecified Qualified Code(s): D72.829 - Elevated white blood cell count, unspecified Is this a current diagnosis for this admission?: Yes (6) Heart murmur Is this a current diagnosis for this admission?: Yes - Plan Summary Summary: 05/22/2019 Splenic infarct-this is the second episode for this patient. Dr. Mcgowan is following. 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 Hematology has seen the patient for coagulopathies. She is currently on Xarelto. Consider aspirin therapy as well. Abdominal pain with nausea and vomiting-this seems to be improving. Patient does have a white blood cell count elevation and it is slightly higher this afternoon. She is on proton pump inhibitor therapy for possible gastritis. She has been under a great deal of personal stress and this could certainly be contributing to her gastritis which can cause abdominal pain with nausea and vomiting. Continue Protonix. Leukocytosis-the patient's white blood cell count is increased slightly. Her urinalysis did not have leukocyte esterase present but there were a small amount of white blood cells and bacteria seen by microscopy. Urine culture is pending. The patient has been afebrile. 1 bottle from her blood cultures is positive for coagulase-negative staph. This is most likely a contaminant. I have not started her on antibiotics yet as there is no focus of infection. We will continue to monitor cultures. If her white blood cell count increases any further I will add antibiotic therapy. 05/23/2019- Splenic infarct-still no obvious cause. Have initiated aspirin therapy for antiplatelet effect as well. Continue Xarelto. Abdominal pain with nausea and vomiting-continues to improve. Patient tolerating clear liquids. Will advance diet. Leukocytosis-the patient's white blood cell count is going up. It is up to 20 ,000. I did add ceftriaxone. I did draw 2 new blood cultures. Only 1 of the 2 original sets were positive and I believe this is a contaminant. It is possible that she may have an occult urinary infection based on her symptoms. We will continue to monitor urine culture results. With the patient's murmur and now reporting a sense of fluttering in her heart I have ordered an echocardiogram. I explained what paroxysmal atrial fibrillation is. It is possible that she may have had paroxysmal A. fib with clot that caused a splenic infarct. This is rather unlikely. We will check an echo and c ertainly assess the heart murmur. She has no risk factors for endocarditis since she has been afebrile. Because her white blood cell count continues to climb I have elected not to discharge the patient at this time. - Time Time Spent with patient: 15-24 minutes Medications reviewed and adjusted accordingly: Yes Anticipated discharge: Home
[2019-05-23] MEDS: CEFTRIAXONE 1 GM/D5W RTU 1 GM/50 ML RTUPB IV SCH (14:31)
[2019-05-23] MEDS: KETOROLAC TROMETHAMINE INJ/PF 30 MG/1 ML SDV IV PRN (19:33)
[2019-05-23] MEDS: ASPIRIN 81 MG TABLET, ENT COATED PO SCH (21:14)
[2019-05-24] MEDS: OXYCODONE-ACETAMINOPHEN 5-325 MG TABLET PO PRN ×2 (01:35→08:47)
[2019-05-24] MEDS: KETOROLAC TROMETHAMINE INJ/PF 30 MG/1 ML SDV IV PRN ×2 (01:36→08:44)
[2019-05-24] MEDS: PANTOPRAZOLE SODIUM 40 MG TABLET.DR PO SCH (05:29)
[2019-05-24 06:40] LABS: ABSOLUTE BASOPHILS # (AUTO) 0.1 10^3/uL (0.0-0.2); ABSOLUTE EOSINOPHILS # (AUTO) 0.3 10^3/uL (0.0-0.6); ABSOLUTE LYMPHOCYTES (AUTO) 3.6 10^3/uL (0.5-4.7); ABSOLUTE MONOCYTES (AUTO) 1.9 10^3/uL (0.1-1.4); ABSOLUTE NEUT (AUTO) 9.2 10^3/uL (1.7-8.2); BASOPHILS % (AUTO) 0.9 % (0-2); EOSINOPHILS % (AUTO) 1.9 % (0-6); HEMATOCRIT 34.9 % (36.0-47.0); HEMOGLOBIN 11.4 g/dL (12.0-15.5); LYMPHOCYTES % (AUTO) 23.7 % (13-45); MEAN CORPUSCULAR HEMOGLOBIN 27.5 pg (27.0-33.4); MEAN CORPUSCULAR HGB CONC 32.5 g/dL (32.0-36.0); MEAN CORPUSCULAR VOLUME 85 fl (80-97); MONOCYTES % (AUTO) 12.4 % (3-13); PLATELET COUNT 339 10^3/uL (150-450); RED BLOOD COUNT 4.13 10^6/uL (3.72-5.28); RED CELL DISTRIBUTION WIDTH 15.1 % (11.5-14.0); SEGMENTED NEUTROPHILS % (AUTO) 61.1 % (42-78); TOTAL CELLS COUNTED % (AUTO) 100 %; WHITE BLOOD COUNT 15.1 10^3/uL (4.0-10.5)
[2019-05-24 07:05] LABS: ALBUMIN 3.4 g/dL (3.5-5.0); ALKALINE PHOSPHATASE 69 U/L (38-126); ANION GAP 9 (5-19); ASPARTATE AMINO TRANSFERASE 18 U/L (14-36); BILIRUBIN,DIRECT 0.3 mg/dL (0.0-0.4); BILIRUBIN,TOTAL 0.3 mg/dL (0.2-1.3); BLOOD UREA NITROGEN 6 mg/dL (7-20); CALCIUM 9.3 mg/dL (8.4-10.2); CARBON DIOXIDE 28 mmol/L (22-30); CHLORIDE 102 mmol/L (98-107); GLUCOSE 94 mg/dL (75-110); POTASSIUM 3.5 mmol/L (3.6-5.0); TOTAL PROTEIN 6.6 g/dL (6.3-8.2)
[2019-05-24 07:22] LABS: ERYTHROCYTE SEDIMENTATION RATE 37 mm/hr (0-20)
--- NOTE | 2019-05-24 07:53 | PDOC PROGRESS REPORT ---
Subjective Progress Note for:: 05/24/19 Subjective:: Patient states that overall, she is feeling better, but still very worried about the underlying cause of her problems. We discussed this at length. Reason For Visit: INTRACTABLE ABDOMINAL PAIN/ N/V Physical Exam Vital Signs: Temp Pulse Resp BP Pulse Ox 97.2 F 67 16 106/61 98 05/24/19 04:09 05/24/19 04:09 05/24/19 04:09 05/24/19 04:09 05/24/19 04:09 Intake & Output 05/23/19 05/24/19 05/25/19 06:59 06:59 06:59 Intake Total 1340 1130 Balance 1340 1130 Weight 82.1 kg 79.5 kg General appearance: PRESENT: no acute distress, well-developed, well-nourished Head exam: PRESENT: normocephalic Respiratory exam: PRESENT: unlabored GI/Abdominal exam: PRESENT: tenderness - LUQ Neurological exam: PRESENT: alert, awake Psychiatric exam: PRESENT: appropriate affect Skin exam: PRESENT: normal color Results Laboratory Results: 05/24/19 06:00 05/24/19 06:00 05/24/19 05/24/19 06:00 06:00 WBC 15.1 H RBC 4.13 Hgb 11.4 L Hct 34.9 L MCV 85 MCH 27.5 MCHC 32.5 RDW 15.1 H Plt Count 339 Seg Neutrophils % 61.1 Sodium 139.3 Potassium 3.5 L Chloride 102 Carbon Dioxide 28 Anion Gap 9 BUN 6 L Creatinine 0.64 Est GFR ( Amer) > 60 Glucose 94 Calcium 9.3 Total Bilirubin 0.3 AST 18 Alkaline Phosphatase 69 Total Protein 6.6 Albumin 3.4 L 05/22/19 20:00 Clean Catch Midstream Urine Culture - Final NO GROWTH 2 DAYS 05/21/19 13:15 Blood Blood Culture (PCR) - Final Staphylococcus Species 05/21/19 07:00 Troponin I < 0.012 Impressions: Abdomen/Pelvis CT 05/21/19 06:39 IMPRESSION: 1. Irregular splenic enhancement and contour with decreased size compared to prior, likely sequelae of previously described prior splenic infarct. Underlying splenic lesion is not entirely excluded. Consider additional follow-up to ensure expected change. 2. No other evidence of acute intra-abdominal/pelvic process. Chest X-Ray 05/21/19 09:11 IMPRESSION: NO ACUTE RADIOGRAPHIC FINDING IN THE CHEST. Assessment & Plan - Diagnosis (1) Abdominal pain Qualifiers: Abdominal location: left upper quadrant Qualified Code(s): R10.12 - Left upper quadrant pain Is this a current diagnosis for this admission?: Yes Plan: Improving. Cause still unclear. (2) Partial splenic infarction Is this a current diagnosis for this admission?: No Plan: Continues Xarelto. Her D-dimer is still elevated. I would continue the xarelto at 20 mg po Daily as outpatient over the next several months. - Time Time Spent with patient: Less than 15 minutes - Plan Summary Plan Summary: She has had a reactive increase in her WBC count. We discussed the fact that this could be reactive to many things, including possible infection. She is on antibiotics emperically. Because her repeat CT spleen did show improvement, I would prefer to wait another 6-12 weeks and repeat scans and CBC. She had no symptoms at all for about a month at home, prior to this admission. If this is only a splenic infarct, this should continue to improve. However, if not, then I will obtain bone marrow biopsy as outpatient to search for possible other cause. However, I think this is unlikely at this point. I will sign off. Please call if further concerns.
--- NOTE | 2019-05-24 08:48 | XCELERA REPORT ---
[address] [address] Transthoracic Echocardiogram Report Name: SHASHI BETH Age: 38 yrs Gender: Female : 1980 Patient Status: Inpatient Patient Location: [facility]^A Study Date: 05/23/2019 06:30 PM History: Murmur Height: 69 in Weight: 180 lb BSA: 2.0 m2 Procedure: A complete two-dimensional transthoracic echocardiogram was performed (2D, M-mode, spectral and color flow Doppler). The study was technically adequate with some images being suboptimal in quality. Reason For Study: Murmur, flutter feeling, splenic infarct Previous Evaluation: No previous studies were available. History: Cardiac murmur. Ordering Physician: TRAVIS YEN Performed By: Tsering Leonardo Interpretation Summary The study was technically adequate with some images being suboptimal in quality. Left ventricular systolic function is normal. The Ejection Fraction estimate is 55-60% The right ventricle is normal in size and function. There is a trace amount of mitral regurgitation There is no aortic valve stenosis There is a trace or physiologic amount of tricuspid regurgitation There is no pericardial effusion. MMode/2D Measurements & Calculations RVDd: 1.9 cm LVIDd: 4.8 cm FS: 32.9 % Ao root diam: 2.4 cm IVSd: 0.91 cm LVIDs: 3.2 cm EDV(Teich): Ao root area: LVPWd: 0.83 cm 105.0 ml 4.6 cm2 ESV(Teich): 40.7 mlLA dimension: 3.3 cm EF(Teich): 61.3 % LVLd ap4: 7.7 cm SV(MOD-sp4): EDV(MOD-sp4): 79.0 ml 93.0 ml LVLs ap4: 4.7 cm ESV(MOD-sp4): 14.0 ml EF(MOD-sp4): 84.9 % Doppler Measurements & Calculations MV E max courtney: MV P1/2t max courtney: Ao V2 max: LV V1 max P.2 cm/sec 108.6 cm/sec 157.5 cm/sec 7.1 mmHg MV A max courtney: MV P1/2t: 60.3 msec Ao max PG: LV V1 max: 82.9 cm/sec MVA(P1/2t): 3.6 cm2 9.9 mmHg 133.3 cm/sec MV E/A: 1.2 MV dec slope: 527.5 cm/sec2 MV dec time: 0.23 sec PA V2 max: MV P1/2t-pr_phl: 105.9 cm/sec 60.3 msec PA max P.5 mmHg Left Ventricle The left ventricle is normal in size. There is normal left ventricular wall thickness. Left ventricular systolic function is normal. The Ejection Fraction estimate is 55-60%. Spectral Doppler of the mitral valve shows a normal E/A wave ratio. No regional wall motion abnormalities noted. Right Ventricle The right ventricle is normal in size and function. Atria The right atrium is normal. The left atrial size is normal. The interatrial septum is intact with no evidence for an atrial septal defect. Mitral Valve The mitral valve is grossly normal. There is no mitral valve stenosis. There is a trace amount of mitral regurgitation. Aortic Valve The aortic valve is not well visualized secondary to technical limitations. The aortic valve opens well. There is no aortic valve stenosis. No aortic regurgitation is present. Tricuspid Valve The tricuspid valve is normal in structure and function. There is a trace or physiologic amount of tricuspid regurgitation. Tricuspid regurgitation jet envelope not well defined to measure RV systolic pressure accurately. Great Vessels The aortic root is not well visualized. The inferior vena cava appeared normal and decreased > 50% with respiration (RAP 5-10 mmHg). Effusions There is no pericardial effusion. : TRAVIS YEN Anil
[2019-05-24] MEDS: MULTIVITAMIN TABLET PO SCH (09:36)
[2019-05-24] MEDS: RIVAROXABAN 10 MG TABLET PO SCH (09:36)
[2019-05-24] MEDS: HYDROXYCHLOROQUINE SULFATE 200 MG TABLET PO SCH (09:36)
--- NOTE | 2019-05-24 09:43 | PDOC DISCHARGE SUMMARY ---
Impression - Admit/DC Date/PCP Admission Date/Primary Care Provider: 05/21/19 12:00 MIGUELINA SAAB PA-C Discharge Date: 05/24/19 - Discharge Diagnosis (1) Abdominal pain Is this a current diagnosis for this admission?: Yes (2) Nausea & vomiting Is this a current diagnosis for this admission?: Yes (3) Partial splenic infarction Is this a current diagnosis for this admission?: No (4) Radha-1 antibody positive Is this a current diagnosis for this admission?: Yes (5) Leukocytosis Is this a current diagnosis for this admission?: Yes (6) Heart murmur Is this a current diagnosis for this admission?: Yes - Assessment Summary: 05/22/2019 Splenic infarct-this is the second episode for this patient. Dr. Mcgowan is following. 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 Hematology has seen the patient for coagulopathies. She is currently on Xarelto. Consider aspirin therapy as well. Abdominal pain with nausea and vomiting-this seems to be improving. Patient does have a white blood cell count elevation and it is slightly higher this afternoon. She is on proton pump inhibitor therapy for possible gastritis. She has been under a great deal of personal stress and this could certainly be contributing to her gastritis which can cause abdominal pain with nausea and vomiting. Continue Protonix. Leukocytosis-the patient's white blood cell count is increased slightly. Her urinalysis did not have leukocyte esterase present but there were a small amount of white blood cells and bacteria seen by microscopy. Urine culture is pending. The patient has been afebrile. 1 bottle from her blood cultures is positive for coagulase-negative staph. This is most likely a contaminant. I have not started her on antibiotics yet as there is no focus of infection. We will continue to monitor cultures. If her white blood cell count increases any further I will add antibiotic therapy. 05/23/2019- Splenic infarct-still no obvious cause. Have initiated aspirin therapy for antiplatelet effect as well. Continue Xarelto. Abdominal pain with nausea and vomiting-continues to improve. Patient tolerating clear liquids. Will advance diet. Leukocytosis-the patient's white blood cell count is going up. It is up to 20,000. I did add ceftriaxone. I did draw 2 new blood cultures. Only 1 of the 2 original sets were positive and I believe this is a contaminant. It is possible that she may have an occult urinary infection based on her symptoms. We will continue to monitor urine culture results. With the patient's murmur and now reporting a sense of fluttering in her heart I have ordered an echocardiogram. I explained what paroxysmal atrial fibrillation is. It is possible that she may have had paroxysmal A. fib with clot that caused a splenic infarct. This is rather unlikely. We will check an echo and certainly assess the heart murmur. She has no risk factors for endocarditis since she has been afebrile. Because her white blood cell count continues to climb I have elected not to discharge the patient at this time. - Additional Information Discharge Diet: As Tolerated Discharge Activity: Activity As Tolerated Referrals: MIGUELINA SAAB PA-C [Primary Care Provider] - Follow up as needed (post hospital follow-up. Please schedule appt next week if possible ) ROGER GLOVER MD [ACTIVE STAFF] - 07/13/19 4:15 pm (With Labs on 07/10/2019 in my office. ) CLARY PRUITT MD [ACTIVE STAFF] - (Needs referral for echo follow-up) Prescriptions: Cephalexin [Cephalexin 250 MG Tablet] 1 tab PO QID 7 Days #28 tablet Home Medications: Multivitamin [Multiple Vitamins] 1 tab PO DAILY 04/02/19 Pantoprazole Sodium [Protonix [address] Tablet] 40 mg PO Q6AM #60 tablet.dr 04/05/19 Hydroxychloroquine Sulfate [Plaquenil 200 mg Tablet] 400 mg PO DAILY 05/21/19 Norgestimate-Ethinyl Estradiol [Tri-Sprintec Tablet] 1 each PO DAILY 05/21/19 Rivaroxaban [Xarelto] 20 mg PO DAILY 05/21/19 Aspirin [Ecotrin 81 mg EC Tablet] 81 mg PO QHS tabec 05/24/19 Cephalexin [Cephalexin 250 MG Tablet] 1 tab PO QID 7 Days #28 tablet 05/24/19 History of Present Illiness History of Present Illness: SHASHI BETH is a 38 year old female with recent history of splenic infarct. She presented with recurrent onset of abdominal pain nausea and vomiting. D-dimer was elevated but much improved from previous test. She was referred to the hospital for admission for IV fluids, analgesia and her elevated white blood cell count. Hospital Course Hospital Course: Unremarkable hospital course. Abdominal pain, still present but improved. No new focus identified. Elevated white blood cell count-no obvious source of infection was identified. The patient did have one blood culture bottle positive for coagulase-negative staph which usually indicates a contaminant. Her white count went up on 3 successive CBCs. I did initiate ceftriaxone therapy. After the first dose her white blood cell count decreased from 20,000-15,000. I will continue antibiotics as an outpatient. Heart murmur-the patient has a heart murmur. She believes she was told she had a subtle murmur several years ago. She also described episodes where her heart was "fluttering ". I did obtain an echocardiogram. Results are pending. I did ask her to follow-up with Dr. Pruitt of cardiology to discuss the murmur and the potential arrhythmia that she has experienced. In light of a splenic infarct it is possible that she had paroxysmal atrial fibrillation with a small clot that embolized to the spleen. Splenic infarct-she will continue her Xarelto and follow-up with Dr. Mcgowan in 2 months. She will likely need a repeat CT scan at that time. Depression-she has been under a lot of stress. I strongly suggested that she review this with her primary care physicians assistant program manager Miguelina Saab. I also encouraged her to strongly consider low-dose antidepressant therapy as well as seeing a psychologist. Physical Exam Vital Signs: Temp Pulse Resp BP Pulse Ox 98.0 F 66 17 122/63 98 05/24/19 07:20 05/24/19 07:20 05/24/19 07:20 05/24/19 07:20 05/24/19 07:20 Intake & Output 05/23/19 05/24/19 05/25/19 06:59 06:59 06:59 Intake Total 1340 1130 Balance 1340 1130 Weight 82.1 kg 79.5 kg General appearance: PRESENT: cooperative, mild distress, well-developed Head exam: PRESENT: atraumatic, normocephalic Respiratory exam: PRESENT: clear to auscultation armand Cardiovascular exam: PRESENT: RRR, +S1, +S2, systolic murmur - 2/6 GI/Abdominal exam: PRESENT: normal bowel sounds, soft, tenderness Neurological exam: PRESENT: alert, awake, oriented to person, oriented to place, oriented to time, oriented to situation, CN II-XII grossly intact Psychiatric exam: PRESENT: flat affect. ABSENT: agitated, anxious Results Laboratory Results: WBC 15.1 10^3/uL (4.0-10.5) H 05/24/19 06:00 RBC 4.13 10^6/uL (3.72-5.28) 05/24/19 06:00 Hgb 11.4 g/dL (12.0-15.5) L 05/24/19 06:00 Hct 34.9 % (36.0-47.0) L 05/24/19 06:00 MCV 85 fl (80-97) 05/24/19 06:00 MCH 27.5 pg (27.0-33.4) 05/24/19 06:00 MCHC 32.5 g/dL (32.0-36.0) 05/24/19 06:00 RDW 15.1 % (11.5-14.0) H 05/24/19 06:00 Plt Count 339 10^3/uL (150-450) 05/24/19 06:00 Lymph % (Auto) 23.7 % (13-45) 05/24/19 06:00 Travis % (Auto) 12.4 % (3-13) 05/24/19 06:00 Eos % (Auto) 1.9 % (0-6) 05/24/19 06:00 Baso % (Auto) 0.9 % (0-2) 05/24/19 06:00 Absolute Neuts (auto) 9.2 10^3/uL (1.7-8.2) H 05/24/19 06:00 Absolute Lymphs (auto) 3.6 10^3/uL (0.5-4.7) 05/24/19 06:00 Absolute Monos (auto) 1.9 10^3/uL (0.1-1.4) H 05/24/19 06:00 Absolute Eos (auto) 0.3 10^3/uL (0.0-0.6) 05/24/19 06:00 Absolute Basos (auto) 0.1 10^3/uL (0.0-0.2) 05/24/19 06:00 Total Counted 100 05/23/19 06:22 Seg Neutrophils % 61.1 % (42-78) 05/24/19 06:00 Seg Neuts % (Manual) 86 % (42-78) H 05/23/19 06:22 Lymphocytes % (Manual) 7 % (13-45) L 05/23/19 06:22 Monocytes % (Manual) 7 % (3-13) 05/23/19 06:22 Eosinophils % (Manual) 0 % (0-6) 05/23/19 06:22 Basophils % (Manual) 0 % (0-2) 05/23/19 06:22 Abs Neuts (Manual) 17.2 10^3/uL (1.7-8.2) H 05/23/19 06:22 Abs Lymphs (Manual) 1.4 10^3/uL (0.5-4.7) 05/23/19 06:22 Abs Monocytes (Manual) 1.4 10^3/uL (0.1-1.4) 05/23/19 06:22 Absolute Eos (Manual) 0.0 10^3/uL (0.0-0.6) 05/23/19 06:22 Abs Basophils (Manual) 0.0 10^3/uL (0.0-0.2) 05/23/19 06:22 Platelet Comment ADEQUATE 05/23/19 06:22 Anisocytosis SLIGHT 05/23/19 06:22 ESR 37 mm/hr (0-20) H 05/24/19 06:00 D-Dimer 1.11 ug/mL (0.00-0.50) H 05/22/19 11:08 Sodium 139.3 mmol/L (137-145) 05/24/19 06:00 Potassium 3.5 mmol/L (3.6-5.0) L 05/24/19 06:00 Chloride 102 mmol/L (98-107) 05/24/19 06:00 Carbon Dioxide 28 mmol/L (22-30) 05/24/19 06:00 Anion Gap 9 (5-19) 05/24/19 06:00 BUN 6 mg/dL (7-20) L 05/24/19 06:00 Creatinine 0.64 mg/dL (0.52-1.25) 05/24/19 06:00 Est GFR ( Amer) > 60 (>60) 05/24/19 06:00 Est GFR (MDRD) Non-Af > 60 (>60) 05/24/19 06:00 Glucose 94 mg/dL (75-110) 05/24/19 06:00 Lactic Acid 1.3 mmol/L (0.7-2.1) 05/21/19 13:15 Calcium 9.3 mg/dL (8.4-10.2) 05/24/19 06:00 Total Bilirubin 0.3 mg/dL (0.2-1.3) 05/24/19 06:00 Direct Bilirubin 0.3 mg/dL (0.0-0.4) 05/24/19 06:00 Neonat Total Bilirubin Not Reportable 05/24/19 06:00 Neonat Direct Bilirubin Not Reportable 05/24/19 06:00 Neonat Indirect Bili Not Reportable 05/24/19 06:00 AST 18 U/L (14-36) 05/24/19 06:00 ALT 12 U/L (<35) 05/24/19 06:00 Alkaline Phosphatase 69 U/L (38-126) 05/24/19 06:00 Troponin I < 0.012 ng/mL 05/21/19 07:00 Total Protein 6.6 g/dL (6.3-8.2) 05/24/19 06:00 Albumin 3.4 g/dL (3.5-5.0) L 05/24/19 06:00 Lipase 126.0 U/L (23-300) 05/21/19 07:00 Urine Color YELLOW 05/21/19 07:15 Urine Appearance SLIGHTLY-CLOUDY 05/21/19 07:15 Urine pH 6.0 (5.0-9.0) 05/21/19 07:15 Ur Specific Waggoner 1.025 05/21/19 07:15 Urine Protein 30 mg/dL (NEGATIVE) H 05/21/19 07:15 Urine Glucose (UA) NEGATIVE mg/dL (NEGATIVE) 05/21/19 07:15 Urine Ketones TRACE mg/dL (NEGATIVE) H 05/21/19 07:15 Urine Blood NEGATIVE (NEGATIVE) 05/21/19 07:15 Urine Nitrite NEGATIVE (NEGATIVE) 05/21/19 07:15 Urine Bilirubin NEGATIVE (NEGATIVE) 05/21/19 07:15 Urine Urobilinogen NEGATIVE mg/dL (<2.0) 05/21/19 07:15 Ur Leukocyte Esterase NEGATIVE (NEGATIVE) 05/21/19 07:15 Urine WBC (Auto) 4 /HPF 05/21/19 07:15 Urine RBC (Auto) 3 /HPF 05/21/19 07:15 Urine Bacteria (Auto) 1+ /HPF 05/21/19 07:15 Squamous Epi Cells Auto 1 /HPF 05/21/19 07:15 Urine Mucus (Auto) MOD /LPF 05/21/19 07:15 Urine Ascorbic Acid NEGATIVE (NEGATIVE) 05/21/19 07:15 Urine HCG, Qual NEGATIVE (NEGATIVE) 05/21/19 07:15 Urine Opiates Screen NEGATIVE 05/21/19 07:15 Urine Methadone Screen NEGATIVE 05/21/19 07:15 Ur Barbiturates Screen NEGATIVE 05/21/19 07:15 Ur Phencyclidine Scrn NEGATIVE 05/21/19 07:15 Ur Amphetamines Screen NEGATIVE 05/21/19 07:15 U Benzodiazepines Scrn NEGATIVE 05/21/19 07:15 Urine Cocaine Screen NEGATIVE 05/21/19 07:15 U Marijuana (THC) Screen NEGATIVE 05/21/19 07:15 05/21/19 07:00 Troponin I < 0.012 Impressions: Abdomen/Pelvis CT 05/21/19 06:39 IMPRESSION: 1. Irregular splenic enhancement and contour with decreased size compared to prior, likely sequelae of previously described prior splenic infarct. Underlying splenic lesion is not entirely excluded. Consider additional follow-up to ensure expected change. 2. No other evidence of acute intra-abdominal/pelvic process. Chest X-Ray 05/21/19 09:11 IMPRESSION: NO ACUTE RADIOGRAPHIC FINDING IN THE CHEST. Plan Health Concerns: Etiology of splenic infarct. Etiology of elevated white blood cell count. Depression. Recurrent abdominal pain with nausea. Plan of Treatment: As outlined above Goals: Identification of pathology of the splenic infarct. Evaluation of the murmur and potential relationship to the splenic infarct. Initiating treatment for her depression. Time Spent: Greater than 30 Minutes Stroke Is this a Stroke Patient?: No Acute Heart Failure - Is this a Heart Failure Patient?: No
[2019-05-24 10:48] VITALS: BP 120/70
[2019-05-24] MEDS: CEFTRIAXONE 1 GM/D5W RTU 1 GM/50 ML RTUPB IV SCH (11:04)
[2019-05-25 07:05] LABS: ANTINUCLEAR ANTIBODIES Negative (Negative)
== END 2019-05-24 13:49 | disposition home or self-care (01) ==
LOC: ER 06:12 → INTOOBSV 12:00 → EH 12:00 → 2N 22:21
PROVIDERS: ADMIT Internal Medicine; ATTEND Internal Medicine
DX: R10.12 Left upper quadrant pain (principal); R10.33 Periumbilical pain; R11.2 Nausea with vomiting, unspecified; D73.5 Infarction of spleen; D72.829 Elevated white blood cell count, unspecified; R76.8 Other specified abnormal immunological findings in serum; R01.1 Cardiac murmur, unspecified; R79.89 Other specified abnormal findings of blood chemistry; F32.9 Major depressive disorder, single episode, unspecified; Z73.3 Stress, not elsewhere classified; F41.9 Anxiety disorder, unspecified; L56.8 Other specified acute skin changes due to ultraviolet radiation; R78.81 Bacteremia; Z79.899 Other long term (current) drug therapy; Z79.82 Long term (current) use of aspirin; Z79.01 Long term (current) use of anticoagulants; Z90.49 Acquired absence of other specified parts of digestive tract; Z87.19 Personal history of other diseases of the digestive system
CPT/HCPCS: 93005; 96376; 99284; 96374; 96375; 36415 ×4; 87040 ×2; 87086; 83605; 83690; 85025 ×4; 85652; 81025; 87077; 80076; 80048; 80053; 81001; 84484; 87186; 80307; 85379; 86038; 87150 ×26; 93306; 71046; 74177; 93010; G0378 ×4; J1885 ×4; J2765; J3490 ×8; J1170; J2405 ×2; J7030 ×2; S0028; J0696 ×2

== ENCOUNTER 2019-08-17 14:21 | Inpatient (IN) | payer OTHER ==
--- NOTE | 2019-08-17 14:40 | ER Document Report ---
ED Medical Screen (RME) - General Chief Complaint: Abdominal Pain Stated Complaint: ABDOMINAL PAIN Time Seen by Provider: 08/17/19 14:26 Primary Care Provider: MIGUELINA SAAB PA-C [Primary Care Provider] - Follow up as needed Mode of Arrival: Ambulatory Information source: Patient Notes: 39-year-old female with history of splenic infarct presents emergency department with complaints of abdominal pain for the past week. Patient reports she has been on Protonix and Xarelto since March. She had a flareup in May. July 26 she saw her provider Dr. Mcgowan and they told her to stop Protonix and Xarelto. She reports about a week ago she started having abdominal pain burning feeling. She did contact Dr. Morrow and was advised to restart the Protonix. She is still not taking the Xarelto. She reports she did have some leftover Percocet and had a refill. She has been taking that but is not relieving the pain. I have greeted and performed a rapid initial assessment of this patient. A comprehensive ED assessment and evaluation of the patient, analysis of test results and completion of the medical decision making process will be conducted by additional ED providers. TRAVEL OUTSIDE OF THE [place] IN LAST 30 DAYS: No - Related Data Allergies/Adverse Reactions: codeine [Codeine] Allergy (Verified 08/17/19 14:25) Past Medical History - Social History Chew tobacco use (# tins/day): No Frequency of alcohol use: None Drug Abuse: None Neurological Medical History: Denies: Hx Seizures Psychiatric Medical History: Denies: Hx Depression Past Surgical History: Reports: Hx Cholecystectomy, Other - tubes in ears as a child.. Denies: Hx Hysterectomy - Immunizations Hx Diphtheria, Pertussis, Tetanus Vaccination: Yes Physical Exam - Vital signs Vitals: Temp Pulse Resp BP Pulse Ox 98.3 F 94 16 145/82 H 99 08/17/19 14:24 08/17/19 14:24 08/17/19 14:24 08/17/19 14:24 08/17/19 14:24 Course - Vital Signs Vital signs: Temp Pulse Resp BP Pulse Ox 98.3 F 94 16 145/82 H 99 08/17/19 14:24 08/17/19 14:24 08/17/19 14:24 08/17/19 14:24 08/17/19 14:24 Doctor's Discharge - Discharge Referrals: MIGUELINA SAAB PA-C [Primary Care Provider] - Follow up as needed
[2019-08-17 15:38] LABS: APPEARANCE,URINE SLIGHTLY-CLOUDY; BILIRUBIN,URINE NEGATIVE (NEGATIVE); GLUCOSE, URINE NEGATIVE (NEGATIVE); KETONES,URINE 80 mg/dL (NEGATIVE); LEUKOCYTE ESTERASE,URINE NEGATIVE (NEGATIVE); NITRITE,URINE NEGATIVE (NEGATIVE); PROTEIN,URINE 100 mg/dL (NEGATIVE); URINE SPECIFIC GRAVITY 1.031; UROBILINOGEN,URINE NEGATIVE mg/dL (<2.0)
[2019-08-17 15:39] LABS: COLOR,URINE YELLOW
[2019-08-17 15:41] LABS: ABSOLUTE BASOPHILS # (AUTO) 0.2 10^3/uL (0.0-0.2); ABSOLUTE EOSINOPHILS # (AUTO) 0.1 10^3/uL (0.0-0.6); ABSOLUTE LYMPHOCYTES (AUTO) 3.1 10^3/uL (0.5-4.7); ABSOLUTE MONOCYTES (AUTO) 1.3 10^3/uL (0.1-1.4); ABSOLUTE NEUT (AUTO) 13.8 10^3/uL (1.7-8.2); BASOPHILS % (AUTO) 1.3 % (0-2); EOSINOPHILS % (AUTO) 0.5 % (0-6); HEMATOCRIT 38.9 % (36.0-47.0); HEMOGLOBIN 13.1 g/dL (12.0-15.5); LYMPHOCYTES % (AUTO) 16.5 % (13-45); MEAN CORPUSCULAR HEMOGLOBIN 28.1 pg (27.0-33.4); MEAN CORPUSCULAR HGB CONC 33.8 g/dL (32.0-36.0); MEAN CORPUSCULAR VOLUME 83 fl (80-97); MONOCYTES % (AUTO) 7.1 % (3-13); PLATELET COUNT 362 10^3/uL (150-450); RED BLOOD COUNT 4.68 10^6/uL (3.72-5.28); RED CELL DISTRIBUTION WIDTH 15.7 % (11.5-14.0); SEGMENTED NEUTROPHILS % (AUTO) 74.6 % (42-78); TOTAL CELLS COUNTED % (AUTO) 100 %; WHITE BLOOD COUNT 18.5 10^3/uL (4.0-10.5)
[2019-08-17] MEDS ORDERED: NORMAL SALINE 1000 ML 1,000 ML IV ONE (15:53)
--- NOTE | 2019-08-17 15:58 | ER Document Report ---
ED GI/ - General Chief Complaint: Abdominal Pain Stated Complaint: ABDOMINAL PAIN Time Seen by Provider: 08/17/19 14:26 Mode of Arrival: Ambulatory Information source: Patient Notes: 29-year-old female presents to ED for generalized abdominal pain with increasing pain to the upper abdomen back through the mid upper back burning sharp with right-sided abdominal pain. She had a gallbladder removed in 2010. She was seen in March and diagnosed with a infarcted spleen. They decided not to take the spleen out but did put her on Protonix and Xarelto. She states she saw Dr. Morrow on July 26 and she told her to stop taking the Xarelto and Protonix, then she was seen again she states about 3 weeks ago s due to have a burning in her abdomen and was told to restart the Protonix but not dose Xarelto. She states she started having pain again about a week ago that since she had some le ftover Percocet she started taking t well as the Protonix, but she has not had any relief in the pain. Patient states she has not had a bowel movement for 2 days as she had been going regularly before that. TRAVEL OUTSIDE OF THE [place] IN LAST 30 DAYS: No - HPI Patient complains to provider of: Abdominal pain - Radiates throughout the abdomen through to the back between the shoulder blades Onset: Other - HPI Timing/Duration: Intermittent Quality of pain: Burning, Sharp Severity at maximum: Moderate Severity in ED: Moderate Pain Level: 3 Location: Epigastric, LUQ, RLQ Vaginal bleeding (Compared to normal period): None Associated symptoms: Constipation, Radiates to back, Radiates to chest Exacerbated by: Denies Relieved by: Denies Similar symptoms previously: Yes Recently seen / treated by doctor: Yes - Related Data Allergies/Adverse Reactions: codeine [Codeine] Allergy (Verified 08/17/19 14:25) Past Medical History - General Information source: Patient - Social History Smoking Status: Never Smoker Chew tobacco use (# tins/day): No Frequency of alcohol use: None Drug Abuse: None Family History: Other Patient has suicidal ideation: No Patient has homicidal ideation: No - Past Medical History Cardiac Medical History: Reports: None Pulmonary Medical History: Reports: None EENT Medical History: Reports: None Neurological Medical History: Reports: None Renal/ Medical History: Reports: None Malignancy Medical History: Reports: None GI Medical History: Reports: None Musculoskeletal Medical History: Reports None Skin Medical History: Reports None Psychiatric Medical History: Reports: None Traumatic Medical History: Reports: None Infectious Medical History: Reports: None Past Surgical History: Reports: Hx Cholecystectomy, Hx Myringotomy, Hx Tubal Lig ation - Immunizations Hx Diphtheria, Pertussis, Tetanus Vaccination: Yes Review of Systems - Review of Systems Constitutional: No symptoms reported EENT: No symptoms reported Cardiovascular: No symptoms reported Respiratory: No symptoms reported Gastrointestinal: Abdominal pain Genitourinary: No symptoms reported Female Genitourinary: No symptoms reported Musculoskeletal: No symptoms reported Skin: No symptoms reported Hematologic/Lymphatic: No symptoms reported Neurological/Psychological: No symptoms reported -: Yes All other systems reviewed and negative Physical Exam - Vital signs Vitals: Temp Pulse Resp BP Pulse Ox 98.3 F 94 16 145/82 H 99 08/17/19 14:24 08/17/19 14:24 08/17/19 14:24 08/17/19 14:24 08/17/19 14:24 Interpretation: Normal - General General appearance: Appears well, Alert - HEENT Head: Normocephalic, Atraumatic Eyes: Normal Pupils: PERRL - Respiratory Respiratory status: No respiratory distress Chest status: Nontender Breath sounds: Normal Chest palpation: Normal - Cardiovascular Rhythm: Regular Heart sounds: Normal auscultation Murmur: No - Abdominal Inspection: Normal Distension: No distension Bowel sounds: Hyperactive Tenderness: Tender Organomegaly: No organomegaly - Back Back: Normal, Nontender - Extremities General upper extremity: Normal inspection, Nontender, Normal color, Normal ROM, Normal temperature General lower extremity: Normal inspection, Nontender, Normal color, Normal ROM, Normal temperature, Normal weight bearing. No: Calos's sign - Neurological Neuro grossly intact: Yes Cognition: Normal Orientation: AAOx4 Ricardo Coma Scale Eye Opening: Spontaneous Ricardo Coma Scale Verbal: Oriented Ricardo Coma Scale Motor: Obeys Commands [place] Coma Scale Total: 15 Speech: Normal Motor strength normal: LUE, RUE, LLE, RLE Sensory: Normal - Psychological Associated symptoms: Normal affect, Normal mood - Skin Skin Temperature: Warm Skin Moisture: Dry Skin Color: Normal Course - Re-evaluation Re-evalutation: 08/17/19 22:[address] Harvey with assessment and results of labs and ultrasound she recommended CTA abdomen pelvis and chest. When I received the results of the CTA so I consulted Dr. Harvey who recommended consulting Dr. Aguilera is covering for Dr. Mcgowan. He stated patient needed to be started on Lovenox 80 mg every 12 hours she needs a dose of MiraLAX, she needs to be started on morphine 1 mg every 4 hours as needed for pain and please consult him in the morning. Consulted Dr. Hoffman who stated to admit the patient to medical floor. Patient was instructed on results of her CTA and was informed she would be admitted started on Lovenox tonight as well as MiraLAX. She was also informed that hematology will be consulted in the morning. - Vital Signs Vital signs: Temp Pulse Resp BP Pulse Ox 98.8 F 88 18 121/61 100 08/17/19 22:40 08/17/19 22:40 08/17/19 22:40 08/17/19 22:40 08/17/19 22:40 - Laboratory Result Diagrams: 08/17/19 15:29 08/17/19 15:29 Laboratory results interpreted by me: 08/17/19 08/17/19 08/17/19 14:40 15:29 15:29 WBC 18.5 H RDW 15.7 H Absolute Neuts (auto) 13.8 H D-Dimer Sodium 136.0 L Chloride 96 L Glucose 124 H Total Protein 9.4 H Urine Protein 100 H Urine Ketones 80 H 08/17/19 18:00 WBC RDW Absolute Neuts (auto) D-Dimer 2.45 H Sodium Chloride Glucose Total Protein Urine Protein Urine Ketones - Diagnostic Test Radiology reviewed: Image reviewed, Reports reviewed Discharge - Discharge Clinical Impression: persistent splenic artery occlusion, 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
[2019-08-17 16:04] LABS: ALKALINE PHOSPHATASE 121 U/L (38-126); ANION GAP 13 (5-19); ASPARTATE AMINO TRANSFERASE 29 U/L (14-36); BILIRUBIN,DIRECT 0.3 mg/dL (0.0-0.4); BILIRUBIN,TOTAL 0.4 mg/dL (0.2-1.3); BLOOD UREA NITROGEN 11 mg/dL (7-20); CALCIUM 10.2 mg/dL (8.4-10.2); CARBON DIOXIDE 27 mmol/L (22-30); CHLORIDE 96 mmol/L (98-107); GLUCOSE 124 mg/dL (75-110); TOTAL PROTEIN 9.4 g/dL (6.3-8.2)
--- NOTE | 2019-08-17 17:07 | RADIOLOGY REPORT (SQ) ---
EXAM DESCRIPTION: ACUTE ABDOMEN SERIES IMAGES COMPLETED DATE/TIME: 08/17/2019 4:56 pm REASON FOR STUDY: upper and lower abdominal pain COMPARISON: None. NUMBER OF VIEWS: Three views. TECHNIQUE: Frontal chest, supine abdomen and upright/decubitus abdomen radiographic images acquired. LIMITATIONS: None. FINDINGS: CHEST: Lungs clear of infiltrates. FREE AIR: None. No abnormal gas collections. BOWEL GAS PATTERN: Nonobstructive pattern. No dilated loops or air fluid levels. CALCIFICATIONS: No suspicious calcifications. HARDWARE: Cholecystectomy clips. SOFT TISSUES: No gross mass or suggestion of organomegaly. BONES: No acute findings. Serpiginous thoracolumbar curvature. OTHER: No other significant finding. IMPRESSION: No evidence of acute intrathoracic or acute intra-abdominal/pelvic process. Prior cholecystectomy. TECHNICAL DOCUMENTATION: JOB ID: [id number] 2010 [employer]- All Rights Reserved Reading location - IP/workstation name: [email or web address]
--- NOTE | 2019-08-17 17:22 | RADIOLOGY REPORT (SQ) ---
EXAM DESCRIPTION: U/S ABDOMEN COMPLETE W/O DOP IMAGES COMPLETED DATE/TIME: 08/17/2019 4:54 pm REASON FOR STUDY: upper and lower abdominal pain COMPARISON: None. TECHNIQUE: Dynamic and static grayscale images acquired of the abdomen and recorded on PACS. Additio nal selected color Doppler and spectral images recorded. Note: Study does not meet criteria for complete doppler/duplex scan LIMITATIONS: None. FINDINGS: PANCREAS: No masses. Visualized pancreatic duct normal caliber. LIVER: Fatty liver. The liver measures 15.7 cm in length, normal size. LIVER VASCULATURE: Normal directional flow of the main portal vein and hepatic veins. GALLBLADDER: Prior cholecystectomy. ULTRASOUND-DETECTED LEE'S SIGN: Negative. INTRAHEPATIC DUCTS AND COMMON DUCT: CBD measures 7.0 mm in diameter in a post cholecystectomy patient . The intrahepatic ducts normal caliber. No filling defects. INFERIOR VENA CAVA: Normal flow. AORTA: The proximal and mid segments are patent. The distal segment is obscured by overlying bowel gas. RIGHT KIDNEY: The right kidney measures 11.8 x 6.2 x 6.6 cm, normal size. Normal echogenicity. No solid or suspicious masses. No hydronephrosis. No calcifications. LEFT KIDNEY: The left kidney measures 11.8 x 6.2 x 6.4 cm, normal size. Normal echogenicity. No so lid or suspicious masses. No hydronephrosis. No calcifications. SPLEEN: The spleen measures 10.2 cm in length. A complex 5.5 x 3.4 x 5.1 cm area in the spleen may correlate to the CT examination dated 05/21/2019, suggesting an infarct. PERITONEAL AND PLEURAL SPACES: No ascites or effusions. OTHER: No other significant finding. IMPRESSION: 1. The distal abdominal aorta is obscured by overlying bowel gas. 2. Prior cholecystectomy. 3. Fatty liver. 4. A complex area is identified in the spleen. This finding may correlate to the CT examination leonard ed 05/21/2019 suggested and infarct. TECHNICAL DOCUMENTATION: JOB ID: [id number] [employer]- All Rights Reserved Reading location - IP/workstation name: [email or web address]
--- NOTE | 2019-08-17 17:28 | RADIOLOGY REPORT (SQ) ---
EXAM DESCRIPTION: U/S ABDOMEN LTD W/DOPPLER IMAGES COMPLETED DATE/TIME: 08/17/2019 4:54 pm REASON FOR STUDY: abdominal pain check appendix COMPARISON: None. TECHNIQUE: Dynamic and static grayscale images acquired of the abdomen and recorded on PACS. Additio nal selected color Doppler and spectral images recorded. LIMITATIONS: None. FINDINGS: The right lower quadrant of the abdomen was scanned. The appendix was not visualized sono graphically. No evidence of abnormal fluid collections or soft tissue mass. IMPRESSION: 1. The appendix was not visualized sonographically. 2. Limited right lower quadrant examination of the abdomen is unremarkable sonographically. TECHNICAL DOCUMENTATION: JOB ID: [id number] 2010 [employer]- All Rights Reserved Reading location - IP/workstation name: [email or web address]
[2019-08-17 18:31] LABS: INTERNATIONAL RATION (INR) 1.08
[2019-08-17 18:34] LABS: D-DIMER 2.45 ug/mL (0.00-0.50)
[2019-08-17] MEDS ORDERED: ONDANSETRON HCL INJ/PF 4 MG/2 ML SDV IV ONE (19:24)
[2019-08-17] MEDS ORDERED: MORPHINE SULFATE 10 MG/ML INJ IV ONE (19:24)
[2019-08-17] MEDS ORDERED: FAMOTIDINE INJ/PF 20 MG/2 ML SDV IV ONE (19:24)
--- NOTE | 2019-08-17 20:45 | RADIOLOGY REPORT (SQ) ---
EXAM DESCRIPTION: CT pulmonary angiogram of the chest CLINICAL HISTORY: 39 years Female; elevated d dimer short of breath TECHNIQUE: CT angiogram of the chest using intravenous contrast.. MIP reconstructions were performed. All CT scans at this facility use dose modulation, iterative reconstruction, and/or weight based dosing when appropriate to reduce radiation dose to as low as reasonably achievable. COMPARISON: None. FINDINGS: Chest: Vascular: Exam is of diagnostic quality. There is no evidence of filling defects in the pulmonary arteries. No pulmonary embolism. Thoracic aorta is of normal caliber. No aneurysm or dissection. Lungs: Lungs are clear. No focal consolidation. No groundglass opacification. No pneumothorax or pleural effusion. No pulmonary nodules or masses. Mediastinum: Heart size is normal. No pericardial abnormality. No mediastinal or hilar lymphadenopathy. Small amount of speckled soft tissue is present in the anterior mediastinum consistent with residual thymic tissue. Bones and soft tissues: Unremarkable Upper Abdomen: There is heterogeneous decreased perfusion seen in portions of the splenic tissue. This will be further assessed on the associated abdominal and pelvic CT scan. IMPRESSION: 1. No pulmonary embolism. 2. No pneumonia or edema. 3. Abnormal appearance of the spleen. This be further assessed on the CT scan of the abdomen and pelvis.
--- NOTE | 2019-08-17 20:56 | RADIOLOGY REPORT (SQ) ---
EXAM DESCRIPTION: CT angiogram of the abdomen and pelvis. CLINICAL HISTORY: 39 years Female; abdominal pain recent splenic infarct TECHNIQUE: CT angiogram of the abdomen and pelvis using intravenous contrast.. MIP reconstructions were performed. All CT scans at this facility use dose modulation, iterative reconstruction, and/or weight based dosing when appropriate to reduce radiation dose to as low as reasonably achievable. COMPARISON: CT scan of the abdomen and pelvis May 21, 2019 FINDINGS: ABDOMEN: Aorta: At the level of the hemidiaphragm there is a small amount of mural thrombus seen along the anterior lateral aspect of the aortic wall. This is just above the celiac axis origin. No definitive abdominal aortic dissection. No aneurysm. No other mural thrombus is seen. Celiac: Minimal narrowing of the celiac axis origin is noted related to the thrombus in the aorta. Hepatic artery is patent. Gastroduodenal artery is noted. Splenic artery remains thrombosed. SMA: Possible mild irregularity of the wall of the mid portion of the superior mesenteric artery. This is not well seen but may represent a trace amount of mural thrombus. This is nonobstructive. Left renal: Normal Right renal: Normal JONNA: Normal Liver: The liver has a mildly heterogeneous enhancement pattern. This normalizes on delayed images. Portal vein is not clearly opacified on these images. Hepatic veins are not seen. Gallbladder surgically absent. No biliary dilatation. Pancreas:Within normal limits Spleen: There is been development of nodular atrophy of the spleen with some small areas of recovery from the splenic infarction. Overall spleen is decreased in size. Recurrent Kidneys: Kidneys are normal in size shape and position. No stones or hydronephrosis. No acute process. Symmetric renal enhancement. On delayed images there is normal and symmetric contrast excretion. Adrenal glands:Within normal limits GI: Moderate stool is noted in the colon. Scattered diverticula. No evidence of acute diverticulitis. No focal bowel wall thickening. No obstruction. No bowel inflammation. appendix: The appendix is not clearly seen Abdominal wall: Unremarkable Retroperitoneal: No mass or lymphadenopathy General: No free air. No free fluid. PELVIS: Right: The common, internal and external iliac arteries are normal. Common femoral artery is normal. Left : The vessels are normal. The common, internal and external iliac arteries are patent. Common femoral arteries patent. Bones: No acute bone findings. Bladder: Unremarkable. Pelvis: There are prominent ovarian cysts bilaterally which most likely are functional. IMPRESSION: 1. Changes of partial involution of the spleen. There is some recovery of splenic tissue. Persistent splenic artery occlusion. 2. Focal mural thrombus along the anterior wall of the upper abdominal aorta extending minimally into the origin of the celiac axis. 3. Possible minimal mural thrombus in the mid superior mesenteric artery. 4. Heterogeneous enhancement of the liver. 5.Small benign appearing ovarian cyst. No follow-up imaging is recommended. Reference: J Am Ines Radiol 2013;10:675-681
[2019-08-17] MEDS ORDERED: POLYETHYLENE GLYCOL 3350 POWDER 17 GM/1 PACKET PO ONE (21:37)
[2019-08-17] MEDS: ENOXAPARIN SODIUM INJ 80 MG/0.8 ML DISP.SYRIN SUBCUT SCH (22:09)
[2019-08-17] MEDS ORDERED: MAG HYDROX/AL HYDROX/SIMETH SUSP 30 ML UDCUP PO PRN (22:51)
[2019-08-17] MEDS ORDERED: LORAZEPAM INJ 2 MG/1 ML VIAL IV PRN (22:55)
--- NOTE | 2019-08-18 00:18 | PDOC H&P ---
History of Present Illness Admission Date/PCP: 08/17/2019 22:22 MIGUELINA SAAB PA-C Patient complains of: Abdominal pain History of Present Illness: SHASHI BETH is a 39 year old female who presents the emergency room with a 3-week history of abdominal pain. She admits the gradual development of constant epigastric abdominal sharp burning pain, radiating throughout the abdomen and into the intrascapular region of her back, beginning 3 weeks ago. At that time she was put on Pepcid by Dr. Torres who had discontinued both her Protonix and Xarelto the previous week. Her pain was improved for 1 week but then returned in the same nature and location as it progressively worsened. She admits using Percocet with moderate transient improvement after each dose. Today the pain has become moderate-severe. She denies any associated or accompanying signs and symptoms. In the emergency room she was found to have intramural clots in her aorta and abdominal arterial vasculature. Dr. Cohn was consulted by the emergency room staff and he directed that the patient be admitted to the hospital where he will evaluate her further tomorrow. She was subsequently admitted to the hospital service for further evaluation and treatment. Past Medical History Cardiac Medical History: Denies: Coronary Artery Disease, Hyperlipidema, Hypertension Pulmonary Medical History: Denies: Asthma, Chronic Obstructive Pulmonary Disease (COPD) EENT Medical History: Denies: Cataracts, Ears - Hearing aids Neurological Medical History: Denies: Migraine, Seizures Endocrine Medical History: Denies: Diabetes Mellitus Type 1, Diabetes Mellitus Type 2, Hyperthyroidism, Hypothyroidism Renal/ Medical History: Denies: Chronic Kidney Disease, Nephrolithiasis Malignancy Medical History: Reports: None GI Medical History: Reports: Other - Gastritis Denies: Cirrhosis, Crohn's Disease, Gastroesophageal Reflux Disease, Hepatitis, Peptic Ulcer Disease, Ulcerative Colitis Musculoskeltal Medical History: 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 Social History Information Source: Patient Lives with: Alone Smoking Status: Never Smoker Electronic Cigarette use?: No Frequency of Alcohol Use: Rare Hx Recreational Drug Use: No Drugs: None Hx Prescription Drug Abuse: No - Advance Directive Resuscitation Status: Full Code Surrogate healthcare decision maker:: Ayah Chávez Family History Family History: CAD, COPD, CVA, Hypertension. denies: DM, Malignancy Parental Family History Reviewed: Yes Children Family History Reviewed: No Sibling(s) Family History Reviewed.: Yes Medication/Allergy Home Medications: Multivitamin [Multiple Vitamins] 1 tab PO DAILY 04/02/19 Pantoprazole Sodium [Protonix [address] Tablet] 40 mg PO Q6AM #60 tablet.dr 04/05/19 Hydroxychloroquine Sulfate [Plaquenil 200 mg Tablet] 400 mg PO DAILY 05/21/19 Norgestimate-Ethinyl Estradiol [Tri-Sprintec Tablet] 1 each PO DAILY 05/21/19 Rivaroxaban [Xarelto] 20 mg PO DAILY 05/21/19 Aspirin [Ecotrin 81 mg EC Tablet] 81 mg PO QHS tabec 05/24/19 Cephalexin [Cephalexin 250 MG Tablet] 1 tab PO QID 7 Days #28 tablet 05/24/19 Allergies/Adverse Reactions: codeine [Codeine] Allergy (Verified 08/17/19 14:25) Review of Systems Constitutional: ABSENT: chills, fever(s) Eyes: ABSENT: visual disturbances, other - Eye pain Ears: ABSENT: hearing changes, other - Ear pain Nose, Mouth, and Throat: ABSENT: headache(s), sore throat Cardiovascular: ABSENT: chest pain, palpitations Respiratory: ABSENT: cough, dyspnea Gastrointestinal: PRESENT: as per HPI, abdominal pain. ABSENT: constipation, diarrhea, nausea, vomiting Genitourinary: ABSENT: dysuria, hematuria Musculoskeletal: ABSENT: back pain, joint swelling Integumentary: ABSENT: pruritus, rash Neurological: ABSENT: confusion, convulsions, focal weakness, memory loss, syncope Psychiatric: ABSENT: anxiety, depression Endocrine: ABSENT: cold intolerance, heat intolerance, polydipsia, polyphagia, polyuria Hematologic/Lymphatic: ABSENT: easy bleeding, easy bruising Allergic/Immunologic: ABSENT: seasonal rhinorrhea Physical Exam Vital Signs: Temp Pulse Resp BP Pulse Ox 100.5 F H 83 16 119/65 100 08/17/19 21:00 08/17/19 21:00 08/17/19 14:24 08/17/19 21:00 08/17/19 21:00 Intake & Output 08/15/19 08/16/19 08/17/19 23:59 23:59 23:59 Intake Total 1000 Balance 1000 Weight 81.9 kg General appearance: PRESENT: cooperative, mild distress - Secondary to abdominal pain Head exam: PRESENT: atraumatic, normocephalic Eye exam: ABSENT: conjunctival injection, scleral icterus Ear exam: PRESENT: normal external ear exam. ABSENT: bleeding, drainage Mouth exam: PRESENT: dry mucosa, neck supple Neck exam: ABSENT: thyromegaly, tracheal deviation Respiratory exam: PRESENT: clear to auscultation armand, symmetrical, unlabored Cardiovascular exam: PRESENT: RRR. ABSENT: clicks, gallop, rubs Pulses: PRESENT: normal radial pulses, normal dorsalis pedis pul Vascular exam: PRESENT: normal capillary refill. ABSENT: pallor GI/Abdominal exam: PRESENT: normal bowel sounds, soft, tenderness - Moderate tenderness on palpation of the epigastric region Rectal exam: PRESENT: deferred Extremities exam: ABSENT: joint swelling, pedal edema Musculoskeletal exam: ABSENT: deformity, dislocation Neurological exam: PRESENT: alert, oriented to person, oriented to place, oriented to time, oriented to situation, CN II-XII grossly intact. ABSENT: motor sensory deficit Psychiatric exam: PRESENT: appropriate affect, normal mood Skin exam: PRESENT: dry, intact, warm. ABSENT: jaundice, rash, urticaria Results Laboratory Results: 08/17/19 15:29 08/17/19 15:29 08/17/19 08/17/19 08/17/19 14:40 15:29 15:29 WBC 18.5 H RBC 4.68 Hgb 13.1 Hct 38.9 MCV 83 MCH 28.1 MCHC 33.8 RDW 15.7 H Plt Count 362 Seg Neutrophils % 74.6 Sodium 136.0 L Potassium 4.0 Chloride 96 L Carbon Dioxide 27 Anion Gap 13 BUN 11 Creatinine 0.61 Est GFR ( Amer) > 60 Glucose 124 H Calcium 10.2 Total Bilirubin 0.4 AST 29 Alkaline Phosphatase 121 Total Protein 9.4 H Albumin 5.0 Serum HCG, Qual Urine Color YELLOW Urine Appearance SLIGHTLY-CLOUDY Urine pH 6.0 Ur Specific [place] 1.031 Urine Protein 100 H Urine Glucose (UA) NEGATIVE Urine Ketones 80 H Urine Blood NEGATIVE Urine Nitrite NEGATIVE Ur Leukocyte Esterase NEGATIVE Urine WBC (Auto) 3 Urine RBC (Auto) 4 08/17/19 15:29 WBC RBC Hgb Hct MCV MCH MCHC RDW Plt Count Seg Neutrophils % Sodium Potassium Chloride Carbon Dioxide Anion Gap BUN Creatinine Est GFR ( Amer) Glucose Calcium Total Bilirubin AST Alkaline Phosphatase Total Protein Albumin Serum HCG, Qual NEGATIVE Urine Color Urine Appearance Urine pH Ur Specific [place] Urine Protein Urine Glucose (UA) Urine Ketones Urine Blood Urine Nitrite Ur Leukocyte Esterase Urine WBC (Auto) Urine RBC (Auto) Impressions: Acute Abdomen Series 08/17/19 15:50 IMPRESSION: No evidence of acute intrathoracic or acute intra-abdominal/pelvic process. Prior cholecystectomy. Abdomen Ultrasound 08/17/19 15:51 IMPRESSION: 1. The appendix was not visualized sonographically. 2. Limited right lower quadrant examination of the abdomen is unremarkable sonographically. Abdomen/Pelvis CTA 08/17/19 19:10 IMPRESSION: 1. Changes of partial involution of the spleen. There is some recovery of splenic tissue. Persistent splenic artery occlusion. 2. Focal mural thrombus along the anterior wall of the upper abdominal aorta extending minimally into the origin of the celiac axis. 3. Possible minimal mural thrombus in the mid superior mesenteric artery. 4. Heterogeneous enhancement of the liver. 5.Small benign appearing ovarian cyst. No follow-up imaging is recommended. Reference: J Am Ines Radiol 2013;10:675-681 Chest/Abdomen CTA 08/17/19 19:10 IMPRESSION: 1. No pulmonary embolism. 2. No pneumonia or edema. 3. Abnormal appearance of the spleen. This be further assessed on the CT scan of the abdomen and pelvis. Assessment and Plan - Diagnosis (1) Abdominal pain Qualifiers: Abdominal location: epigastric Qualified Code(s): R10.13 - Epigastric pain Is this a current diagnosis for this admission?: Yes (2) Aortic mural thrombus Is this a current diagnosis for this admission?: Yes (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 Is this a current diagnosis for this admission?: Yes (4) Radha-1 antibody positive Is this a current diagnosis for this admission?: Yes (5) Leukocytosis Qualifiers: Leukocytosis type: unspecified Qualified Code(s): D72.829 - Elevated white blood cell count, unspecified Is this a current diagnosis for this admission?: Yes - Plan Summary Summary: Patient is admitted to the medical floor for routine's supportive and symptomatic cares at the request of Dr. Cohn. She will receive morphine sulfate 1 mg IV every 4 hours for control of her pain. She will be on Lovenox 80 mg of cutaneously every 12 hours. Further evaluation will be directed by Dr. Cohn. - Time Time Spent with patient: 15-24 minutes Anticipated discharge: Home - Inpatient Certification Based on my medical assessment, after consideration of the patient's comorbidities, presenting symptoms, or acuity I expect that the services needed warrant INPATIENT care.: Yes I certify that my determination is in accordance with my understanding of Medicare's requirements for reasonable and necessary INPATIENT services [42 CFR 412.3e].: Yes Medical Necessity: Failure to Improve With Outpatient Therapy, Need Close Monitoring Due to Risk of Patient Decompensation, Need for Pain Control, Risk of Complication if Not Cared For in Hospital
[2019-08-18] MEDS: MORPHINE SULFATE 10 MG/ML INJ IV SCH ×7 (03:45→22:00)
[2019-08-18 06:52] LABS: APPEARANCE,URINE CLEAR; BILIRUBIN,URINE NEGATIVE (NEGATIVE); COLOR,URINE YELLOW; GLUCOSE, URINE NEGATIVE (NEGATIVE); KETONES,URINE 80 mg/dL (NEGATIVE); LEUKOCYTE ESTERASE,URINE NEGATIVE (NEGATIVE); NITRITE,URINE NEGATIVE (NEGATIVE); PROTEIN,URINE NEGATIVE (NEGATIVE); URINE SPECIFIC GRAVITY 1.032; UROBILINOGEN,URINE NEGATIVE mg/dL (<2.0)
[2019-08-18] MEDS: POLYETHYLENE GLYCOL 3350 POWDER 17 GM/1 PACKET PO SCH (10:57)
[2019-08-18] MEDS: ENOXAPARIN SODIUM INJ 80 MG/0.8 ML DISP.SYRIN SUBCUT SCH ×2 (10:57→21:32)
--- NOTE | 2019-08-18 15:38 | PDOC PROGRESS REPORT ---
Subjective Progress Note for:: 08/18/19 Subjective:: Complains of: Dull abdominal pain mostly in LLQ and LUQ Denies: Nausea/vomiting/diarrhea/constipation/shortness of breath/CUMMINGS/fever/chills Reason For Visit: ABDOMINAL PAIN Physical Exam Vital Signs: Temp Pulse Resp BP Pulse Ox 98.9 F 74 17 120/55 L 98 08/18/19 11:00 08/18/19 11:00 08/18/19 11:00 08/18/19 11:00 08/18/19 11:00 Intake & Output 08/17/19 08/18/19 08/19/19 06:59 06:59 06:59 Intake Total 1000 480 Output Total 400 Balance 600 480 Weight 82.6 kg General appearance: PRESENT: no acute distress, well-developed, well-nourished Head exam: PRESENT: atraumatic, normocephalic Eye exam: PRESENT: conjunctiva pink Respiratory exam: PRESENT: clear to auscultation armand. ABSENT: rales, rhonchi, wheezes Cardiovascular exam: PRESENT: RRR. ABSENT: diastolic murmur, rubs, systolic murmur GI/Abdominal exam: PRESENT: normal bowel sounds, soft, tenderness - mild in epigastrum. ABSENT: distended, guarding, mass, organolmegaly, rebound Rectal exam: PRESENT: deferred Musculoskeletal exam: PRESENT: ambulatory Neurological exam: PRESENT: alert, awake Psychiatric exam: PRESENT: appropriate affect, normal mood Skin exam: PRESENT: dry, intact, warm Results Laboratory Results: 08/17/19 15:29 08/17/19 15:29 08/17/19 08/17/19 08/17/19 14:40 15:29 15:29 WBC 18.5 H RBC 4.68 Hgb 13.1 Hct 38.9 MCV 83 MCH 28.1 MCHC 33.8 RDW 15.7 H Plt Count 362 Seg Neutrophils % 74.6 Sodium 136.0 L Potassium 4.0 Chloride 96 L Carbon Dioxide 27 Anion Gap 13 BUN 11 Creatinine 0.61 Est GFR ( Amer) > 60 Glucose 124 H Calcium 10.2 Total Bilirubin 0.4 AST 29 Alkaline Phosphatase 121 Total Protein 9.4 H Albumin 5.0 Serum HCG, Qual Urine Color YELLOW Urine Appearance SLIGHTLY-CLOUDY Urine pH 6.0 Ur Specific [place] 1.031 Urine Protein 100 H Urine Glucose (UA) NEGATIVE Urine Ketones 80 H Urine Blood NEGATIVE Urine Nitrite NEGATIVE Ur Leukocyte Esterase NEGATIVE Urine WBC (Auto) 3 Urine RBC (Auto) 4 08/17/19 08/18/19 15:29 06:19 WBC RBC Hgb Hct MCV MCH MCHC RDW Plt Count Seg Neutrophils % Sodium Potassium Chloride Carbon Dioxide Anion Gap BUN Creatinine Est GFR ( Amer) Glucose Calcium Total Bilirubin AST Alkaline Phosphatase Total Protein Albumin Serum HCG, Qual NEGATIVE Urine Color YELLOW Urine Appearance CLEAR Urine pH 6.0 Ur Specific [place] 1.032 Urine Protein NEGATIVE Urine Glucose (UA) NEGATIVE Urine Ketones 80 H Urine Blood NEGATIVE Urine Nitrite NEGATIVE Ur Leukocyte Esterase NEGATIVE Urine WBC (Auto) 1 Urine RBC (Auto) 1 Impressions: Acute Abdomen Series 08/17/19 15:50 IMPRESSION: No evidence of acute intrathoracic or acute intra-abdominal/pelvic process. Prior cholecystectomy. Abdomen Ultrasound 08/17/19 15:51 IMPRESSION: 1. The appendix was not visualized sonographically. 2. Limited right lower quadrant examination of the abdomen is unremarkable sonographically. Abdomen/Pelvis CTA 08/17/19 19:10 IMPRESSION: 1. Changes of partial involution of the spleen. There is some recovery of splenic tissue. Persistent splenic artery occlusion. 2. Focal mural thrombus along the anterior wall of the upper abdominal aorta extending minimally into the origin of the celiac axis. 3. Possible minimal mural thrombus in the mid superior mesenteric artery. 4. Heterogeneous enhancement of the liver. 5.Small benign appearing ovarian cyst. No follow-up imaging is recommended. Reference: J Am Ines Radiol 2013;10:675-681 Chest/Abdomen CTA 08/17/19 19:10 IMPRESSION: 1. No pulmonary embolism. 2. No pneumonia or edema. 3. Abnormal appearance of the spleen. This be further assessed on the CT scan of the abdomen and pelvis. Assessment and Plan - Diagnosis (1) Aortic mural thrombus Is this a current diagnosis for this admission?: Yes Plan: -seen on CTA -tx dose lovenox; expect her to need lifelong AC now Suspect she has underlying hypercoagulability disorder Possibly vasculitis: Check ANCA, MPO, OR-3 ESR, CRP May need hematology input this week Repeat echocardiogram to rule out cardiac embolic source of thrombi (2) Hemochromatosis carrier Is this a current diagnosis for this admission?: Yes Plan: -f/w hematology outpt (3) Abdominal pain Qualifiers: Abdominal location: epigastric Qualified Code(s): R10.13 - Epigastric pain Is this a current diagnosis for this admission?: Yes Plan: -suspect due to splenic infarct -pain mgmt prn (4) Radha-1 antibody positive Is this a current diagnosis for this admission?: Yes Plan: -Follows with hematology Previously seen rheumatology as well - Plan Summary Summary: Patient is admitted to the medical floor for routine's supportive and symptomatic cares at the request of Dr. Cohn. She will receive morphine sulfate 1 mg IV every 4 hours for control of her pain. She will be on Lovenox 80 mg of cutaneously every 12 hours. Further evaluation will be directed by Dr. Cohn. - Time Time Spent with patient: 35 or more minutes - Inpatient Certification Based on my medical assessment, after consideration of the patient's comorbidities, presenting symptoms, or acuity I expect that the services needed warrant INPATIENT care.: Yes I certify that my determination is in accordance with my understanding of Medicare's requirements for reasonable and necessary INPATIENT services [42 CFR 412.3e].: Yes Medical Necessity: Significant Comorbidiites Make Outpatient Treatment Too R isky, Need Close Monitoring Due to Risk of Patient Decompensation
[2019-08-19] MEDS: MORPHINE SULFATE 10 MG/ML INJ IV SCH ×3 (02:13→10:21)
[2019-08-19] MEDS: POLYETHYLENE GLYCOL 3350 POWDER 17 GM/1 PACKET PO SCH (10:21)
[2019-08-19] MEDS: ENOXAPARIN SODIUM INJ 80 MG/0.8 ML DISP.SYRIN SUBCUT SCH ×2 (10:21→21:41)
[2019-08-19] MEDS ORDERED: BISACODYL 10 MG SUPP.RECT PR PRN (11:49)
--- NOTE | 2019-08-19 11:55 | PDOC PROGRESS REPORT ---
Subjective Progress Note for:: 08/19/19 Subjective:: Complains of: Still having some mild intermittent abdominal pain in LLQ and LUQ. Complains of being constipated for the past 4 days Denies: Nausea/vomiting/diarrhea/shortness of breath/CUMMINGS/fever/chills Reason For Visit: ABDOMINAL PAIN Physical Exam Vital Signs: Temp Pulse Resp BP Pulse Ox 98.4 F 69 12 105/59 L 96 08/19/19 07:23 08/19/19 07:23 08/19/19 07:23 08/19/19 07:23 08/19/19 07:23 Intake & Output 08/18/19 08/19/19 08/20/19 06:59 06:59 06:59 Intake Total 1000 1280 Output Total 400 300 Balance 600 980 Weight 82.6 kg 82.1 kg General appearance: PRESENT: no acute distress, well-developed, well-nourished Head exam: PRESENT: atraumatic, normocephalic Eye exam: PRESENT: conjunctiva pink Respiratory exam: PRESENT: clear to auscultation armand. ABSENT: rales, rhonchi, wheezes Cardiovascular exam: PRESENT: RRR. ABSENT: diastolic murmur, rubs, systolic murmur GI/Abdominal exam: PRESENT: normal bowel sounds, soft. ABSENT: distended, guarding, mass, organolmegaly, rebound, tenderness Rectal exam: PRESENT: deferred Neurological exam: PRESENT: alert, awake, oriented to person, oriented to place, oriented to time, oriented to situation Psychiatric exam: PRESENT: appropriate affect, normal mood Skin exam: PRESENT: dry, intact, warm Results Laboratory Results: 08/17/19 15:29 08/17/19 15:29 08/18/19 15:41 C-Reactive Protein 224.7 H Impressions: Acute Abdomen Series 08/17/19 15:50 IMPRESSION: No evidence of acute intrathoracic or acute intra-abdominal/pelvic process. Prior cholecystectomy. Abdomen Ultrasound 08/17/19 15:51 IMPRESSION: 1. The appendix was not visualized sonographically. 2. Limited right lower quadrant examination of the abdomen is unremarkable sonographically. Abdomen/Pelvis CTA 08/17/19 19:10 IMPRESSION: 1. Changes of partial involution of the spleen. There is some recovery of splenic tissue. Persistent splenic artery occlusion. 2. Focal mural thrombus along the anterior wall of the upper abdominal aorta extending minimally into the origin of the celiac axis. 3. Possible minimal mural thrombus in the mid superior mesenteric artery. 4. Heterogeneous enhancement of the liver. 5.Small benign appearing ovarian cyst. No follow-up imaging is recommended. Reference: J Am Ines Radiol 2013;10:675-681 Chest/Abdomen CTA 08/17/19 19:10 IMPRESSION: 1. No pulmonary embolism. 2. No pneumonia or edema. 3. Abnormal appearance of the spleen. This be further assessed on the CT scan of the abdomen and pelvis. Assessment and Plan - Diagnosis (1) Aortic mural thrombus Is this a current diagnosis for this admission?: Yes Plan: -seen on CTA -tx dose lovenox; expect her to need lifelong AC now Suspect she has underlying hypercoagulability disorder Possibly vasculitis: Pending ANCA, MPO, [place]-3, antiphospholipid antibodies (these are send out labs which I do not expect to result prior to patient leaving the hospital) ESR elevated, CRP markedly elevated at 225 We will reach out to hematology tomorrow when they are back in the office; patient follows with Dr. 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 Cohn. She will receive morphine sulfate 1 mg IV every 4 hours for control of her pain. She will be on Lovenox 80 mg of cutaneously every 12 hours. Further evaluation will be directed by Dr. Cohn. - Time Time Spent with patient: 25-34 minutes Medications reviewed and adjusted accordingly: Yes Anticipated discharge: Home Within: within 48 hours - Inpatient Certification Medical Necessity: Significant Comorbidiites Make Outpatient Treatment Too [place]is [place], Need Close Monitoring Due to Risk of Patient Decompensation, Need for Pain Control, Risk of Complication if Not Cared For in Hospital
[2019-08-19] MEDS ORDERED: BISACODYL 5 MG TABEC PO ONE (12:45)
[2019-08-19] MEDS: HYDROXYCHLOROQUINE SULFATE 200 MG TABLET PO SCH (12:48)
[2019-08-19] MEDS: MORPHINE SULFATE 10 MG/ML INJ IV PRN ×3 (17:35→23:41)
[2019-08-20] MEDS: MORPHINE SULFATE 10 MG/ML INJ IV PRN ×3 (04:53→13:47)
[2019-08-20 05:58] LABS: HEMATOCRIT 35.1 % (36.0-47.0); HEMOGLOBIN 11.8 g/dL (12.0-15.5); MEAN CORPUSCULAR HEMOGLOBIN 27.8 pg (27.0-33.4); MEAN CORPUSCULAR HGB CONC 33.6 g/dL (32.0-36.0); MEAN CORPUSCULAR VOLUME 83 fl (80-97); PLATELET COUNT 457 10^3/uL (150-450); RED BLOOD COUNT 4.24 10^6/uL (3.72-5.28); RED CELL DISTRIBUTION WIDTH 15.6 % (11.5-14.0); WHITE BLOOD COUNT 14.4 10^3/uL (4.0-10.5)
[2019-08-20] MEDS: HYDROXYCHLOROQUINE SULFATE 200 MG TABLET PO SCH (09:40)
[2019-08-20] MEDS: ENOXAPARIN SODIUM INJ 80 MG/0.8 ML DISP.SYRIN SUBCUT SCH ×2 (09:40→22:04)
[2019-08-20] MEDS: POLYETHYLENE GLYCOL 3350 POWDER 17 GM/1 PACKET PO SCH (10:35)
[2019-08-20 12:05] LABS: APPEARANCE,URINE CLEAR; BILIRUBIN,URINE NEGATIVE (NEGATIVE); COLOR,URINE YELLOW; GLUCOSE, URINE NEGATIVE (NEGATIVE); KETONES,URINE 20 mg/dL (NEGATIVE); LEUKOCYTE ESTERASE,URINE NEGATIVE (NEGATIVE); NITRITE,URINE NEGATIVE (NEGATIVE); PROTEIN,URINE NEGATIVE (NEGATIVE); URINE SPECIFIC GRAVITY 1.012; UROBILINOGEN,URINE NEGATIVE mg/dL (<2.0)
[2019-08-20] MEDS ORDERED: MORPHINE SULFATE 10 MG/ML INJ IV PRN (14:59)
[2019-08-20] MEDS ORDERED: MINERAL OIL ENEMA 133 ML PR ONE (15:00)
--- NOTE | 2019-08-20 15:02 | PDOC PROGRESS REPORT ---
Subjective Progress Note for:: 08/20/19 Subjective:: Complains of: Still having some abdominal pain in LLQ and LUQ which she states was worse overnight intermittently; still has not had a bowel movement, constipated, requested increasing narcotics overnight Denies: Nausea/vomiting/diarrhea/shortness of breath/CUMMINGS/fever/chills Reason For Visit: ABDOMINAL PAIN Physical Exam Vital Signs: Temp Pulse Resp BP Pulse Ox 98.2 F 71 17 120/66 100 08/20/19 08:02 08/20/19 08:02 08/20/19 08:02 08/20/19 08:02 08/20/19 08:02 Intake & Output 08/19/19 08/20/19 08/21/19 06:59 06:59 06:59 Intake Total 1280 940 Output Total 300 Balance 980 940 Weight 82.1 kg 82.9 kg General appearance: PRESENT: no acute distress, well-developed, well-nourished Head exam: PRESENT: atraumatic, normocephalic Eye exam: PRESENT: conjunctiva pink Mouth exam: PRESENT: moist Respiratory exam: PRESENT: clear to auscultation armand. ABSENT: rales, rhonchi, wheezes Cardiovascular exam: PRESENT: RRR. ABSENT: diastolic murmur, rubs, systolic murmur GI/Abdominal exam: PRESENT: normal bowel sounds, soft, tenderness - Very minimal tenderness left lower quadrant. ABSENT: distended, guarding, mass, organolmegaly, rebound Rectal exam: PRESENT: deferred Neurological exam: PRESENT: alert, altered, awake, oriented to person, oriented to place, oriented to time, oriented to situation Psychiatric exam: PRESENT: appropriate affect, normal mood Skin exam: PRESENT: dry, intact, warm Results Laboratory Results: 08/20/19 05:45 08/17/19 15:29 08/20/19 08/20/19 05:45 11:30 WBC 14.4 H RBC 4.24 Hgb 11.8 L Hct 35.1 L MCV 83 MCH 27.8 MCHC 33.6 RDW 15.6 H Plt Count 457 H Urine Color YELLOW Urine Appearance CLEAR Urine pH 7.0 Ur Specific Douglas 1.012 Urine Protein NEGATIVE Urine Glucose (UA) NEGATIVE Urine Ketones 20 H Urine Blood NEGATIVE Urine Nitrite NEGATIVE Ur Leukocyte Esterase NEGATIVE Urine WBC (Auto) 1 Urine RBC (Auto) 0 Impressions: Acute Abdomen Series 08/17/19 15:50 IMPRESSION: No evidence of acute intrathoracic or acute intra-abdominal/pelvic process. Prior cholecystectomy. Abdomen Ultrasound 08/17/19 15:51 IMPRESSION: 1. The appendix was not visualized sonographically. 2. Limited right lower quadrant examination of the abdomen is unremarkable sonographically. Abdomen/Pelvis CTA 08/17/19 19:10 IMPRESSION: 1. Changes of partial involution of the spleen. There is some recovery of splenic tissue. Persistent splenic artery occlusion. 2. Focal mural thrombus along the anterior wall of the upper abdominal aorta extending minimally into the origin of the celiac axis. 3. Possible minimal mural thrombus in the mid superior mesenteric artery. 4. Heterogeneous enhancement of the liver. 5.Small benign appearing ovarian cyst. No follow-up imaging is recommended. Reference: J Am Ines Radiol 2013;10:675-681 Chest/Abdomen CTA 08/17/19 19:10 IMPRESSION: 1. No pulmonary embolism. 2. No pneumonia or edema. 3. Abnormal appearance of the spleen. This be further assessed on the CT scan of the abdomen and pelvis. Assessment and Plan - Diagnosis (1) Aortic mural thrombus Is this a current diagnosis for this admission?: Yes Plan: -seen on CTA -tx dose lovenox; expect her to need lifelong AC now Suspect she has underlying hypercoagulability disorder Possibly vasculitis: Pending ANCA, MPO, [place]-3, antiphospholipid antibodies (these are send out labs which I do not expect to result prior to patient leaving the hospital) ESR elevated, CRP markedly elevated at 225 We will reach out to hematology tomorrow when they are back in the office; patient follows with Dr. 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 Is this a current diagnosis for this admission?: Yes (3) Abdominal pain Qualifiers: Abdominal location: epigastric Qualified Code(s): R10.13 - Epigastric pain Is this a current diagnosis for this admission?: Yes (4) Radha-1 antibody positive Is this a current diagnosis for this admission?: Yes (7) Constipation Is this a current diagnosis for this admission?: Yes Plan: Likely due to narcotics she was taking consistently at home Oral and rectal Dulcolax given without response, enema ordered Suspect constipation is a large contributing factor to her abdominal pain and increasing narcotics will only make this worse - Plan Summary Summary: Patient is admitted to the medical floor for routine's supportive and symptomatic cares at the request of Dr. Cohn. She will receive morphine s ulfate 1 mg IV every 4 hours for control of her pain. She will be on Lovenox 80 mg of cutaneously every 12 hours. Further evaluation will be directed by Dr. Cohn. - Time Time Spent with patient: 25-34 minutes Medications reviewed and adjusted accordingly: Yes Anticipated discharge: Home Within: within 48 hours - Inpatient Certification Medical Necessity: Significant Comorbidiites Make Outpatient Treatment Too Risky, Need Close Monitoring Due to Risk of Patient Decompensation, Need for Pain Control, Risk of Complication if Not Cared For in Hospital
[2019-08-20 16:36] LABS: ANTIMYELOPEROXIDASE (MPO) AB <9.0 U/mL (0.0-9.0); CYTOPLASMIC (C-ANCA) <1:20 titer (Neg:<1:20)
[2019-08-20] MEDS: OXYCODONE-ACETAMINOPHEN 5-325 MG TABLET PO PRN ×2 (18:24→22:32)
[2019-08-21] MEDS: OXYCODONE-ACETAMINOPHEN 5-325 MG TABLET PO PRN (05:48)
[2019-08-21] MEDS ORDERED: PROMETHAZINE HCL INJ 25 MG/1 ML VIAL ONE (06:11)
[2019-08-21] MEDS: PROMETHAZINE HCL INJ 25 MG/1 ML VIAL IV PRN ×2 (06:28→18:47)
[2019-08-21 06:57] LABS: ATYPICAL PANCA <1:20 titer (Neg:<1:20)
[2019-08-21] MEDS: ENOXAPARIN SODIUM INJ 80 MG/0.8 ML DISP.SYRIN SUBCUT SCH ×2 (10:45→22:56)
[2019-08-21] MEDS: HYDROXYCHLOROQUINE SULFATE 200 MG TABLET PO SCH (10:46)
[2019-08-21] MEDS: POLYETHYLENE GLYCOL 3350 POWDER 17 GM/1 PACKET PO SCH (11:01)
--- NOTE | 2019-08-21 14:54 | RADIOLOGY REPORT (SQ) ---
EXAM DESCRIPTION: ABDOMEN 2 VIEWS IMAGES COMPLETED DATE/TIME: 08/21/2019 2:43 pm REASON FOR STUDY: abdominal pain. flat and upright. portable COMPARISON: 08/17/2019 NUMBER OF VIEWS: Two views. TECHNIQUE: Supine and erect/decubitus radiographic images of the abdomen acquired. LIMITATIONS: None. FINDINGS: FREE AIR: None. No abnormal gas collections. LUNG BASES: Clear. BOWEL GAS PATTERN: Nonobstructive pattern. No dilated loops or air fluid levels. Mildly dilated more sverse colon and splenic flexure is noted. CALCIFICATIONS: No suspicious calcifications. SOFT TISSUES: No gross mass or suggestion of organomegaly. HARDWARE: There are clips in the right upper quadrant consistent with prior cholecystectomy. BONES: No acute fracture. No worrisome bone lesions. OTHER: No other significant finding. IMPRESSION: Mildly dilated distal transverse colon and splenic flexure. No other significant findin gs. TECHNICAL DOCUMENTATION: JOB ID: [id number] 2010 [employer]- All Rights Reserved Reading location - IP/workstation name: [email or web address]
--- NOTE | 2019-08-21 15:51 | PDOC PROGRESS REPORT ---
Subjective Progress Note for:: 08/21/19 Subjective:: Complains of: Somewhat less abdominal pain in LLQ and LUQ which she states has taken on an aching quality; no bowel movement despite 2 enemas and multiple laxatives; vomited this AM Denies: diarrhea/shortness of breath/CUMMINGS/fever/chills Reason For Visit: ABDOMINAL PAIN Physical Exam Vital Signs: Temp Pulse Resp BP Pulse Ox 98.4 F 79 14 120/82 99 08/21/19 07:58 08/21/19 07:58 08/21/19 07:58 08/21/19 07:58 08/21/19 07:58 Intake & Output 08/20/19 08/21/19 08/22/19 06:59 06:59 06:59 Intake Total 940 800 260 Output Total 500 Balance 940 300 260 Weight 82.9 kg 87.2 kg Head exam: PRESENT: atraumatic, normocephalic Eye exam: PRESENT: conjunctiva pink Mouth exam: PRESENT: moist, neck supple Respiratory exam: PRESENT: clear to auscultation armand. ABSENT: rales, rhonchi, wheezes Cardiovascular exam: PRESENT: RRR. ABSENT: diastolic murmur, rubs, systolic murmur GI/Abdominal exam: PRESENT: normal bowel sounds, soft, tenderness - very mild dull tenderness in LLQ/LUQ/periumbilical region. ABSENT: distended, guarding, mass, organolmegaly, rebound Rectal exam: PRESENT: deferred Musculoskeletal exam: PRESENT: ambulatory Neurological exam: PRESENT: alert, awake Psychiatric exam: PRESENT: appropriate affect, normal mood Skin exam: PRESENT: dry, intact, warm Results Laboratory Results: 08/20/19 05:45 08/17/19 15:29 Impressions: Acute Abdomen Series 08/17/19 15:50 IMPRESSION: No evidence of acute intrathoracic or acute intra-abdominal/pelvic process. Prior cholecystectomy. Abdomen Ultrasound 08/17/19 15:51 IMPRESSION: 1. The appendix was not visualized sonographically. 2. Limited right lower quadrant examination of the abdomen is unremarkable sonographically. Abdomen/Pelvis CTA 08/17/19 19:10 IMPRESSION: 1. Changes of partial involution of the spleen. There is some recovery of splenic tissue. Persistent splenic artery occlusion. 2. Focal mural thrombus along the anterior wall of the upper abdominal aorta extending minimally into the origin of the celiac axis. 3. Possible minimal mural thrombus in the mid superior mesenteric artery. 4. Heterogeneous enhancement of the liver. 5.Small benign appearing ovarian cyst. No follow-up imaging is recommended. Reference: J Am Ines Radiol 2013;10:675-681 Chest/Abdomen CTA 08/17/19 19:10 IMPRESSION: 1. No pulmonary embolism. 2. No pneumonia or edema. 3. Abnormal appearance of the spleen. This be further assessed on the CT scan of the abdomen and pelvis. Abdomen X-Ray 08/21/19 00:00 IMPRESSION: Mildly dilated distal transverse colon and splenic flexure. No other significant findings. Assessment and Plan - Diagnosis (1) Aortic mural thrombus Is this a current diagnosis for this admission?: Yes Plan: -seen on CTA -tx dose lovenox; expect her to need lifelong AC now Suspect she has underlying hypercoagulability disorder Possibly vasculitis: NEGATIVE ANCA, MPO, [place]-3; PENDING antiphospholipid antibodies ESR elevated, CRP markedly elevated at 225 D/w Dr Morrow in hematology: She agrees with the current plan of care and would like patient restarted on Xarelto at discharge along with Plaquenil; she will see patient in close follow-up after discharge Still pending repeat echocardiogram to rule out cardiac embolic source of thrombi; study done 08/19 but results pending (2) Large bowel obstruction Is this a current diagnosis for this admission?: Yes Plan: No bowel movement for approximately 6 days and continued use of narcotics which began prior to admission Flat and upright abdominal x-ray showed mild proximal dilation of colon General surgery consulted and the case was discussed with them in detail, they are following in consult Multiple oral and rectal laxatives and enemas have been unsuccessful (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 Is this a current diagnosis for this admission?: Yes (4) Abdominal pain Qualifiers: Abdominal location: epigastric Qualified Code(s): R10.13 - Epigastric pain Is this a current diagnosis for this admission?: Yes (5) Radha-1 antibody positive Is this a current diagnosis for this admission?: Yes (8) Constipation Is this a current diagnosis for this admission?: Yes - Plan Summary Summary: Patient is admitted to the medical floor for routine's supportive and symptomatic cares at the request of Dr. Cohn. She will receive morphine sulfate 1 mg IV every 4 hours for control of her pain. She will be on Lovenox 80 mg of cutaneously every 12 hours. Further evaluation will be directed by Dr. Cohn. - Time Time Spent with patient: 35 or more minutes Medications reviewed and adjusted accordingly: Yes - Inpatient Certification Medical Necessity: Significant Comorbidiites Make Outpatient Treatment Too Risky, Need Close Monitoring Due to Risk of Patient Decompensation, Need for Pain Control
--- NOTE | 2019-08-21 16:30 | XCELERA REPORT ---
[address] [address] Transthoracic Echocardiogram Report Name: SHASHI BETH Age: 39 yrs Gender: Female : 1980 Patient Status: Inpatient Patient Location: [address] [place] [address] Study Date: 08/20/2019 08:50 AM Height: 69 in Weight: 182 lb BSA: 2.0 m2 Procedure: A two-dimensional transthoracic echocardiogram with color flow and Doppler was performed. Study Quality: Fair. Reason For Study: suspected cardiac thrombus History: cardiac thrombus. Ordering Physician: PHIL BARRIOS Performed By: Tsering Leonardo Interpretation Summary NO EVIDENCE OF INTRACARDIAC THROMBUS. The left ventricle is normal in size. There is normal left ventricular wall thickness. LV EF is 65% to 70% Left ventricular systolic function is normal. Doppler measurements suggest normal left ventricular diastolic function The left ventricular wall motion is normal. There is no thrombus. No ASD ,VSD,or PFO seen. The right ventricle is normal in size and function. The right ventricle is not well visualized secondary to technical limitations The right atrium is normal. The left atrial size is normal. There is no evidence of mitral valve prolapse. There is no vegetation seen on the mitral valve. There is no mitral valve stenosis. There is a trace amount of mitral regurgitation There is no aortic valvular vegetation. There is no aortic valve stenosis There is no LVOT obstruction. No aortic regurgitation is present. There is no tricuspid stenosis. No tricuspid regurgitation. Tricuspid regurgitation jet envelope not well defined to measure RV systolic pressure accurately. There is no pulmonic valvular stenosis. There is a trace amount of pulmonic regurgitation There is no pericardial effusion. NO EVIDENCE OF INTRACARDIAC THROMBUS. The aortic root is normal size. The inferior vena cava appeared normal and decreased > 50% with respiration (RAP 5-10 mmHg) MMode/2D Measurements & Calculations RVDd: 1.7 cm LVIDd: 5.3 cm FS: 40.2 % Ao root diam: 2.7 cm IVSd: 0.70 cm LVIDs: 3.2 cm EDV(Teich): 135.5 ml Ao root area: 5.8 cm2 LVPWd: 0.72 cm ESV(Teich): 40.1 ml EF(Teich): 70.4 % LVOT diam: 1.9 cm LVOT area: 2.8 cm2 Doppler Measurements & Calculations MV E max courtney: MV dec slope: Ao V2 max: LV V1 max P.0 cm/sec 350.8 cm/sec2 150.5 cm/sec 6.2 mmHg MV A max courtney: MV dec time: 0.22 sec Ao max PG: LV V1 max: 70.8 cm/sec 9.1 mmHg 124.8 cm/sec MV E/A: 1.1 PRADIP(V,D): 2.3 cm2 PA V2 max: PI end-d courtney: 96.0 cm/sec 92.4 cm/sec PA max P.7 mmHg Left Ventricle The left ventricle is normal in size. There is normal left ventricular wall thickness. LV EF is 65% to 70%. Left ventricular systolic function is normal. Doppler measurements suggest normal left ventricular diastolic function. The left ventricular wall motion is normal. There is no thrombus. No ASD ,VSD,or PFO seen. Right Ventricle The right ventricle is normal in size and function. The right ventricle is not well visualized secondary to technical limitations. Atria The right atrium is normal. The left atrial size is normal. Mitral Valve There is no evidence of mitral valve prolapse. There is no vegetation seen on the mitral valve. There is no mitral valve stenosis. There is a trace amount of mitral regurgitation. Aortic Valve There is no aortic valvular vegetation. There is no aortic valve stenosis. There is no LVOT obstruction. No aortic regurgitation is present. Tricuspid Valve There is no tricuspid stenosis. No tricuspid regurgitation. Tricuspid regurgitation jet envelope not well defined to measure RV systolic pressure accurately. Pulmonic Valve There is no pulmonic valvular stenosis. There is a trace amount of pulmonic regurgitation. Great Vessels The aortic root is normal size. The inferior vena cava appeared normal and decreased > 50% with respiration (RAP 5-10 mmHg). Effusions There is no pericardial effusion. : PHIL BARRIOS, Louise
[2019-08-21] MEDS ORDERED: GLYCERIN 99.5% (ANHYDROUS) 177 ML PR ONE (17:30)
[2019-08-21] MEDS ORDERED: MINERAL OIL ENEMA 133 ML PR ONE (17:30)
[2019-08-21] MEDS: DOCUSATE SODIUM 100 MG CAPSULE PO SCH (18:47)
[2019-08-21] MEDS ORDERED: POLYETHYLENE GLYCOL 3350 POWDER 17 GM/1 PACKET PO ONE (19:00)
[2019-08-22 01:46] LABS: HEMATOCRIT 40.5 % (36.0-47.0); HEMOGLOBIN 13.7 g/dL (12.0-15.5); MEAN CORPUSCULAR HEMOGLOBIN 27.8 pg (27.0-33.4); MEAN CORPUSCULAR HGB CONC 33.7 g/dL (32.0-36.0); MEAN CORPUSCULAR VOLUME 82 fl (80-97); PLATELET COUNT 498 10^3/uL (150-450); RED BLOOD COUNT 4.93 10^6/uL (3.72-5.28); RED CELL DISTRIBUTION WIDTH 15.6 % (11.5-14.0); WHITE BLOOD COUNT 23.1 10^3/uL (4.0-10.5)
[2019-08-22] MEDS: OXYCODONE-ACETAMINOPHEN 5-325 MG TABLET PO PRN ×3 (02:14→22:22)
[2019-08-22 06:03] LABS: HEMATOCRIT 40.4 % (36.0-47.0); HEMOGLOBIN 13.6 g/dL (12.0-15.5); MEAN CORPUSCULAR HEMOGLOBIN 27.3 pg (27.0-33.4); MEAN CORPUSCULAR HGB CONC 33.6 g/dL (32.0-36.0); MEAN CORPUSCULAR VOLUME 81 fl (80-97); PLATELET COUNT 481 10^3/uL (150-450); RED BLOOD COUNT 4.96 10^6/uL (3.72-5.28); RED CELL DISTRIBUTION WIDTH 15.4 % (11.5-14.0); WHITE BLOOD COUNT 24.7 10^3/uL (4.0-10.5)
--- NOTE | 2019-08-22 06:46 | PDOC CONSULTATION ---
Consultation Consult Date: 08/21/19 Provider Consulted: SURGICAL SURGICALIST Consult reason:: Constipation and abdominal pain History of Present Illness Admission Date/PCP: 08/17/19 22:29 MIGUELINA SAAB PA-C Patient complains of: Constipation and abdominal pain History of Present Illness: SHASHI BETH is a 39 year old female seen in consultation at the request of the hospitalist service. 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 This caused her a significant amount of pain, requiring narcotic pain medications. Patient has been taking narcotics, however she has not been taking stool softeners. Patient became constipated, and has not had a bowel movement in over a week. Patient reports burning abdominal discomfort in the lower abdomen, bilaterally. She rates it as 6 out of 10. Her pain does not radiate. Nothing makes it better or worse. She also reports abdominal distention. She denies fevers, chills, chest pain, shortness of breath, melena, hematochezia, hematemesis, headache, dizziness, blurry vision. She has experienced malaise, nausea, and occasional vomiting. She has been taking liquids, but does not have much of an appetite. 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 Denies: Cataracts, Ears - Hearing aids Neurological Medical History: Reports: None Denies: Migraine, Seizures Endocrine Medical History: Denies: Diabetes Mellitus Type 1, Diabetes Mellitus Type 2, Hyperthyroidism, Hypothyroidism Renal/ Medical History: Reports: None Denies: Chronic Kidney Disease, Nephrolithiasis Malignancy Medical History: Reports: None GI Medical History: Reports: None, Other - Gastritis Denies: Cirrhosis, Crohn's Disease, Gastroesophageal Reflux Disease, Hepatitis, Peptic Ulcer Disease, Ulcerative Colitis Musculoskeltal Medical History: Reports: None, Arthritis - Autoimmune Denies: Gout Skin Medical History: Reports: None, Other - Autoimmune photosensitive dermatitis Denies: Eczema, Psoriasis Psychiatric Medical History: Reports: None Denies: Alcohol Dependency, Depression, Substance Abuse, Tobacco Dependency Traumatic Medical History: Reports: None Hematology: Reports: Other - 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 Unknown thrombotic disease. Denies: Anemia, Bleeding Tendencies Infectious Medical History: Reports: None Past Surgical History Past Surgical History: Reports: Cholecystectomy, Tubal Ligation, Other - PE tubes in ears as a child. Denies: Hysterectomy Social History Lives with: Alone Smoking Status: Never Smoker Electronic Cigarette use?: No Frequency of Alcohol Use: Rare Hx Recreational Drug Use: No Drugs: None Hx Prescription Drug Abuse: No - Advance Directive Resuscitation Status: Full Code Family History Family History: CAD, COPD, CVA, Hypertension. denies: DM, Malignancy Parental Family History Reviewed: Yes Children Family History Reviewed: Yes Sibling(s) Family History Reviewed.: Yes Medication/Allergy Home Medications: Multivitamin [Multiple Vitamins] 1 tab PO DAILY 04/02/19 Hydroxychloroquine Sulfate [Plaquenil 200 mg Tablet] 400 mg PO DAILY 05/21/19 Norgestimate-Ethinyl Estradiol [Tri-Sprintec Tablet] 1 each PO DAILY 05/21/19 Allergies/Adverse Reactions: codeine [Codeine] Allergy (Verified 08/18/19 09:45) Hives Review of Systems Constitutional: ABSENT: chills, fever(s), headache(s) Eyes: ABSENT: visual disturbances Ears: ABSENT: hearing changes Nose, Mouth, and Throat: ABSENT: sore throat Cardiovascular: ABSENT: chest pain Respiratory: ABSENT: cough Gastrointestinal: PRESENT: abdominal pain, constipation, nausea Genitourinary: ABSENT: difficulty urinating Musculoskeletal: ABSENT: back pain Integumentary: ABSENT: pruritus, rash Neurological: ABSENT: confusion, convulsions, dizziness Psychiatric: ABSENT: anxiety, depression Endocrine: ABSENT: cold intolerance, heat intolerance Hematologic/Lymphatic: ABSENT: easy bleeding, easy bruising Physical Exam Vital Signs: Temp Pulse Resp BP Pulse Ox 98.8 F 70 14 134/67 H 95 08/21/19 16:40 08/21/19 16:40 08/21/19 16:40 08/21/19 16:40 08/21/19 16:40 Intake & Output 08/20/19 08/21/19 08/22/19 06:59 06:59 06:59 Intake Total 940 800 660 Output Total 500 Balance 940 300 660 Weight 82.9 kg 87.2 kg General appearance: PRESENT: no acute distress, cooperative Head exam: PRESENT: atraumatic, normocephalic Eye exam: PRESENT: EOMI, PERRLA. ABSENT: scleral icterus Mouth exam: PRESENT: neck supple Teeth exam: ABSENT: poor dentation Neck exam: ABSENT: meningismus, tenderness, thyromegaly, tracheal deviation Respiratory exam: PRESENT: unlabored. ABSENT: chest wall tenderness, tachypnea, wheezes Cardiovascular exam: ABSENT: tachycardia Vascular exam: PRESENT: normal capillary refill GI/Abdominal exam: PRESENT: soft, tenderness - mild lower abdominal tenderness. ABSENT: distended, firm, guarding, rebound, rigid Rectal exam: PRESENT: deferred Extremities exam: ABSENT: clubbing Musculoskeletal exam: ABSENT: deformity Neurological exam: PRESENT: alert, awake, oriented to person, oriented to place, oriented to time, oriented to situation, CN II-XII grossly intact Psychiatric exam: ABSENT: agitated, anxious, depressed Focused psych exam: ABSENT: delusional Skin exam: ABSENT: cyanosis, erythema Results Laboratory Results: 08/22/19 05:26 08/17/19 15:29 08/22/19 08/22/19 08/22/19 00:27 01:30 05:26 WBC Cancelled 23.1 H 24.7 H RBC Cancelled 4.93 4.96 Hgb Cancelled 13.7 13.6 Hct Cancelled 40.5 40.4 MCV Cancelled 82 81 MCH Cancelled 27.8 27.3 MCHC Cancelled 33.7 33.6 RDW Cancelled 15.6 H 15.4 H Plt Count Cancelled 498 H 481 H Impressions: Acute Abdomen Series 08/17/19 15:50 IMPRESSION: No evidence of acute intrathoracic or acute intra-abdominal/pelvic process. Prior cholecystectomy. Abdomen Ultrasound 08/17/19 15:51 IMPRESSION: 1. The appendix was not visualized sonographically. 2. Limited right lower quadrant examination of the abdomen is unremarkable sonographically. Abdomen/Pelvis CTA 08/17/19 19:10 IMPRESSION: 1. Changes of partial involution of the spleen. There is some recovery of splenic tissue. Persistent splenic artery occlusion. 2. Focal mural thrombus along the anterior wall of the upper abdominal aorta extending minimally into the origin of the celiac axis. 3. Possible minimal mural thrombus in the mid superior mesenteric artery. 4. Heterogeneous enhancement of the liver. 5.Small benign appearing ovarian cyst. No follow-up imaging is recommended. Reference: J Am Ines Radiol 2013;10:675-681 Chest/Abdomen CTA 08/17/19 19:10 IMPRESSION: 1. No pulmonary embolism. 2. No pneumonia or edema. 3. Abnormal appearance of the spleen. This be further assessed on the CT scan of the abdomen and pelvis. Abdomen X-Ray 08/21/19 00:00 IMPRESSION: Mildly dilated distal transverse colon and splenic flexure. No other significant findings. Assessment & Plan - Diagnosis (1) Constipation Is this a current diagnosis for this admission?: Yes (2) Abdominal pain Qualifiers: Abdominal location: epigastric Qualified Code(s): R10.13 - Epigastric pain Is this a current diagnosis for this admission?: Yes - Plan Summary Plan Summary: This is a 39-year-old female with abdominal pain. She also has market constipation on imaging. Patient has not had a bowel movement in over 1 week. I will provide her with cathartics (both oral and enemas) to assist with bowel movements. Hopefully this will resolve her abdominal discomfort. I will order a MiraLAX bowel prep, as well as a peroxide/mineral oil/anhydrous glycerin enema. We will reassess her symptoms after these medications have had time to provide the desired effect. Further recommendations will depend upon the patient's clinical course.
[2019-08-22] MEDS ORDERED: MORPHINE SULFATE 10 MG/ML INJ IV PRN (10:19)
[2019-08-22] MEDS: POLYETHYLENE GLYCOL 3350 POWDER 17 GM/1 PACKET PO SCH (10:24)
[2019-08-22] MEDS: ENOXAPARIN SODIUM INJ 80 MG/0.8 ML DISP.SYRIN SUBCUT SCH ×2 (10:28→22:22)
[2019-08-22] MEDS: ACETAMINOPHEN 325 MG TABLET PO PRN (10:28)
[2019-08-22] MEDS: HYDROXYCHLOROQUINE SULFATE 200 MG TABLET PO SCH (10:28)
[2019-08-22] MEDS: DOCUSATE SODIUM 100 MG CAPSULE PO SCH ×2 (10:28→18:08)
--- NOTE | 2019-08-22 10:43 | PDOC PROGRESS REPORT ---
Subjective Progress Note for:: 08/22/19 Subjective:: Ms. Parker is a 30 yo female with constipation secondary to narcotic medication for splenic infarct. Constipation has improved. She has had multiple BM since yesteday. BMs are currently all liquid. Complains of abdominal cramping, more sever is lower abdomen and bright red blood after BM. Denies fever, chills, night sweats, blurred vision, SOB, chest pain, cough, vomiting, hematemesis, headache, dizziness. Reason For Visit: ABDOMINAL PAIN Physical Exam Vital Signs: Temp Pulse Resp BP Pulse Ox 98.8 F 70 14 134/67 H 95 08/21/19 16:40 08/21/19 16:40 08/21/19 16:40 08/21/19 16:40 08/21/19 16:40 Intake & Output 08/21/19 08/22/19 08/23/19 06:59 06:59 06:59 Intake Total 800 660 Output Total 500 Balance 300 660 Weight 87.2 kg General appearance: PRESENT: no acute distress, cooperative, well-developed, well-nourished Head exam: PRESENT: atraumatic, normocephalic Eye exam: PRESENT: PERRLA. ABSENT: conjunctival injection, scleral icterus Mouth exam: PRESENT: moist, neck supple Neck exam: ABSENT: meningismus, tenderness, thyromegaly Respiratory exam: PRESENT: unlabored. ABSENT: accessory muscle use, wheezes Cardiovascular exam: ABSENT: tachycardia GI/Abdominal exam: PRESENT: soft. ABSENT: distended, guarding, rebound, rigid, tenderness Rectal exam: PRESENT: deferred Extremities exam: ABSENT: clubbing, tenderness Musculoskeletal exam: PRESENT: ambulatory. ABSENT: deformity, dislocation Neurological exam: PRESENT: alert, awake, oriented to person, oriented to place, oriented to time, oriented to situation. ABSENT: altered Psychiatric exam: PRESENT: normal mood. ABSENT: agitated, unusual affect Focused psych exam: ABSENT: delusional, euphoric, paranoid Skin exam: PRESENT: normal color. ABSENT: erythema, jaundice Results Laboratory Results: 08/22/19 05:26 08/17/19 15:29 08/22/19 08/22/19 08/22/19 00:27 01:30 05:26 WBC Cancelled 23.1 H 24.7 H RBC Cancelled 4.93 4.96 Hgb Cancelled 13.7 13.6 Hct Cancelled 40.5 40.4 MCV Cancelled 82 81 MCH Cancelled 27.8 27.3 MCHC Cancelled 33.7 33.6 RDW Cancelled 15.6 H 15.4 H Plt Count Cancelled 498 H 481 H Impressions: Acute Abdomen Series 08/17/19 15:50 IMPRESSION: No evidence of acute intrathoracic or acute intra-abdominal/pelvic process. Prior cholecystectomy. Abdomen Ultrasound 08/17/19 15:51 IMPRESSION: 1. The appendix was not visualized sonographically. 2. Limited right lower quadrant examination of the abdomen is unremarkable sonographically. Abdomen/Pelvis CTA 08/17/19 19:10 IMPRESSION: 1. Changes of partial involution of the spleen. There is some recovery of splenic tissue. Persistent splenic artery occlusion. 2. Focal mural thrombus along the anterior wall of the upper abdominal aorta extending minimally into the origin of the celiac axis. 3. Possible minimal mural thrombus in the mid superior mesenteric artery. 4. Heterogeneous enhancement of the liver. 5.Small benign appearing ovarian cyst. No follow-up imaging is recommended. Reference: J Am Ines Radiol 2013;10:675-681 Chest/Abdomen CTA 08/17/19 19:10 IMPRESSION: 1. No pulmonary embolism. 2. No pneumonia or edema. 3. Abnormal appearance of the spleen. This be further assessed on the CT scan of the abdomen and pelvis. Abdomen X-Ray 08/21/19 00:00 IMPRESSION: Mildly dilated distal transverse colon and splenic flexure. No other significant findings. Assessment & Plan - Diagnosis (2) Abdominal pain Qualifiers: Abdominal location: epigastric Qualified Code(s): R10.13 - Epigastric pain - Plan Summary Plan Summary: This is a 30 yo female with abdominal pain and constipation. Overall has improved and having bowel movements. She may resume regular diet. Will recheck KUB. Surgery to continue to monitor.
--- NOTE | 2019-08-22 15:07 | PDOC PROGRESS REPORT ---
Subjective Progress Note for:: 08/22/19 Subjective:: Complains of: Having a lot more discomfort diffusely in her abdomen with cramping but she states her initial pain experienced on admission has completely resolved, having bowel movements now which are mixed hard and soft stool, requesting increase in her narcotics Denies: diarrhea/shortness of breath/CUMMINGS/fever/chills Reason For Visit: ABDOMINAL PAIN Physical Exam Vital Signs: Temp Pulse Resp BP Pulse Ox 98.8 F 70 14 134/67 H 95 08/21/19 16:40 08/21/19 16:40 08/21/19 16:40 08/21/19 16:40 08/21/19 16:40 Intake & Output 08/21/19 08/22/19 08/23/19 06:59 06:59 06:59 Intake Total 800 660 Output Total 500 Balance 300 660 Weight 87.2 kg General appearance: PRESENT: no acute distress, well-developed, well-nourished Head exam: PRESENT: atraumatic, normocephalic Eye exam: PRESENT: conjunctiva pink Mouth exam: PRESENT: moist Respiratory exam: PRESENT: clear to auscultation armand. ABSENT: rales, rhonchi, wheezes Cardiovascular exam: PRESENT: RRR. ABSENT: diastolic murmur, rubs, systolic murmur GI/Abdominal exam: PRESENT: normal bowel sounds, soft, tenderness - Mild diffuse achy tenderness, no rebound tenderness, not an acute abdomen. ABSENT: d istended, guarding, mass, organolmegaly, rebound Rectal exam: PRESENT: deferred Musculoskeletal exam: PRESENT: ambulatory Neurological exam: PRESENT: alert, awake Psychiatric exam: PRESENT: appropriate affect, normal mood Skin exam: PRESENT: dry, intact, warm Results Laboratory Results: 08/22/19 05:26 08/17/19 15:29 08/22/19 08/22/19 08/22/19 00:27 01:30 05:26 WBC Cancelled 23.1 H 24.7 H RBC Cancelled 4.93 4.96 Hgb Cancelled 13.7 13.6 Hct Cancelled 40.5 40.4 MCV Cancelled 82 81 MCH Cancelled 27.8 27.3 MCHC Cancelled 33.7 33.6 RDW Cancelled 15.6 H 15.4 H Plt Count Cancelled 498 H 481 H Impressions: Acute Abdomen Series 08/17/19 15:50 IMPRESSION: No evidence of acute intrathoracic or acute intra-abdominal/pelvic process. Prior cholecystectomy. Abdomen Ultrasound 08/17/19 15:51 IMPRESSION: 1. The appendix was not visualized sonographically. 2. Limited right lower quadrant examination of the abdomen is unremarkable sonographically. Abdomen/Pelvis CTA 08/17/19 19:10 IMPRESSION: 1. Changes of partial involution of the spleen. There is some recovery of splenic tissue. Persistent splenic artery occlusion. 2. Focal mural thrombus along the anterior wall of the upper abdominal aorta extending minimally into the origin of the celiac axis. 3. Possible minimal mural thrombus in the mid superior mesenteric artery. 4. Heterogeneous enhancement of the liver. 5.Small benign appearing ovarian cyst. No follow-up imaging is recommended. Reference: J Am Ines Radiol 2013;10:675-681 Chest/Abdomen CTA 08/17/19 19:10 IMPRESSION: 1. No pulmonary embolism. 2. No pneumonia or edema. 3. Abnormal appearance of the spleen. This be further assessed on the CT scan of the abdomen and pelvis. Abdomen X-Ray 08/21/19 00:00 IMPRESSION: Mildly dilated distal transverse colon and splenic flexure. No other significant findings. Assessment and Plan - Diagnosis (1) Aortic mural thrombus Is this a current diagnosis for this admission?: Yes Plan: -seen on CTA -tx dose lovenox; expect her to need lifelong AC now Suspect she has underlying hypercoagulability disorder Possibly vasculitis: NEGATIVE ANCA, MPO, WI-3; PENDING antiphospholipid antibodies ESR elevated, CRP markedly elevated at 225 D/w Dr Morrow in hematology: She agrees with the current plan of care and would like patient restarted on Xarelto at discharge along with Plaquenil; she will see patient in close follow-up after discharge Echocardiogram showed normal function, good EF, no intracardiac thrombus (2) Large bowel obstruction Is this a current diagnosis for this admission?: Yes Plan: No bowel movement for approximately 6 days and continued use of narcotics which began prior to admission Flat and upright abdominal x-ray showed mild proximal dilation of colon General surgery consulted and the case was discussed with them in detail, they are following in consult Multiple oral and rectal laxatives and enemas have been unsuccessful Finally having multiple bowel movements overnight 08/20 (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 Is this a current diagnosis for this admission?: Yes (4) Abdominal pain Qualifiers: Abdominal location: epigastric Qualified Code(s): R10.13 - Epigastric pain Is this a current diagnosis for this admission?: Yes (5) Radha-1 antibody positive Is this a current diagnosis for this admission?: Yes (8) Constipation Is this a current diagnosis for this admission?: Yes Plan: Likely due to narcotics she was taking consistently at home Oral and rectal Dulcolax given without response, enema ordered Suspect constipation is a large contributing factor to her abdominal pain and increasing narcotics will only make this worse - Plan Summary Summary: Patient is admitted to the medical floor for routine's supportive and sympt omatic cares at the request of Dr. Cohn. She will receive morphine sulfate 1 mg IV every 4 hours for control of her pain. She will be on Lovenox 80 mg of cutaneously every 12 hours. Further evaluation will be directed by Dr. Cohn. - Time Time Spent with patient: 25-34 minutes Medications reviewed and adjusted accordingly: Yes Within: within 48 hours - Inpatient Certification Medical Necessity: Significant Comorbidiites Make Outpatient Treatment Too Risky, Need Close Monitoring Due to Risk of Patient Decompensation
[2019-08-22] MEDS: PROMETHAZINE HCL INJ 25 MG/1 ML VIAL IV PRN (15:34)
--- NOTE | 2019-08-22 15:49 | PDOC PROGRESS REPORT ---
Subjective Progress Note for:: 08/22/19 Subjective:: 39-year-old female with abdominal pain and constipation. Overnight, the patient was given a large volume enema, as well as a MiraLAX bowel prep. This has been incredibly successful. She has had multiple large stools overnight. The patient reports that she continues to have cramping abdominal discomfort, but the burning sensation that she was experiencing has completely subsided. The patient also reports some blood in her stool today. She denies chest pain, shortness of breath, fevers, chills, nausea, vomiting, dizziness, blurry vision. Reason For Visit: ABDOMINAL PAIN Physical Exam Vital Signs: Temp Pulse Resp BP Pulse Ox 98.6 F 89 16 143/78 H 98 08/22/19 10:54 08/22/19 10:54 08/22/19 10:54 08/22/19 10:54 08/22/19 10:54 Intake & Output 08/21/19 08/22/19 08/23/19 06:59 06:59 06:59 Intake Total 800 660 Output Total 500 Balance 300 660 Weight 87.2 kg General appearance: PRESENT: no acute distress, cooperative Head exam: PRESENT: atraumatic, normocephalic Eye exam: PRESENT: EOMI, PERRLA. ABSENT: scleral icterus Mouth exam: PRESENT: moist, neck supple Neck exam: ABSENT: meningismus, tenderness, thyromegaly, tracheal deviation Respiratory exam: PRESENT: unlabored. ABSENT: tachypnea, wheezes Cardiovascular exam: ABSENT: tachycardia Vascular exam: ABSENT: pallor GI/Abdominal exam: PRESENT: soft. ABSENT: distended, firm, guarding, rebound, rigid, tenderness Rectal exam: PRESENT: deferred Extremities exam: ABSENT: clubbing Neurological exam: PRESENT: alert, awake, oriented to person, oriented to place, oriented to time, oriented to situation, CN II-XII grossly intact Psychiatric exam: ABSENT: agitated, anxious, depressed Focused psych exam: ABSENT: delusional Skin exam: ABSENT: cyanosis, erythema, jaundice Results Laboratory Results: 08/22/19 05:26 08/17/19 15:29 08/22/19 08/22/19 08/22/19 00:27 01:30 05:26 WBC Cancelled 23.1 H 24.7 H RBC Cancelled 4.93 4.96 Hgb Cancelled 13.7 13.6 Hct Cancelled 40.5 40.4 MCV Cancelled 82 81 MCH Cancelled 27.8 27.3 MCHC Cancelled 33.7 33.6 RDW Cancelled 15.6 H 15.4 H Plt Count Cancelled 498 H 481 H Impressions: Acute Abdomen Series 08/17/19 15:50 IMPRESSION: No evidence of acute intrathoracic or acute intra-abdominal/pelvic process. Prior cholecystectomy. Abdomen Ultrasound 08/17/19 15:51 IMPRESSION: 1. The appendix was not visualized sonographically. 2. Limited right lower quadrant examination of the abdomen is unremarkable sonographically. Abdomen/Pelvis CTA 08/17/19 19:10 IMPRESSION: 1. Changes of partial involution of the spleen. There is some recovery of splenic tissue. Persistent splenic artery occlusion. 2. Focal mural thrombus along the anterior wall of the upper abdominal aorta extending minimally into the origin of the celiac axis. 3. Possible minimal mural thrombus in the mid superior mesenteric artery. 4. Heterogeneous enhancement of the liver. 5.Small benign appearing ovarian cyst. No follow-up imaging is recommended. Reference: J Am Ines Radiol 2013;10:675-681 Chest/Abdomen CTA 08/17/19 19:10 IMPRESSION: 1. No pulmonary embolism. 2. No pneumonia or edema. 3. Abnormal appearance of the spleen. This be further assessed on the CT scan of the abdomen and pelvis. Abdomen X-Ray 08/21/19 00:00 IMPRESSION: Mildly dilated distal transverse colon and splenic flexure. No other significant findings. Assessment & Plan - Diagnosis (1) Constipation Is this a current diagnosis for this admission?: Yes (2) Abdominal pain Qualifiers: Abdominal location: epigastric Qualified Code(s): R10.13 - Epigastric pain Is this a current diagnosis for this admission?: Yes - Plan Summary Plan Summary: This is a 30 y/o female with abdominal pain and constipation. The patient reports that her abdominal pain is improving. She still complains of abdominal cramping, which may be related to the large volume of MiraLAX. Check abdominal x-ray today. Repeat x-rays tomorrow. The patient has no significant abdominal tenderness on examination. She does not exhibit signs of peritonitis. She does report blood in her stool today. This could be related to the enema administration (instrumentation, or medication related). I will continue to monitor her very closely. Further interventions will be determined based on the patient's clinical course.
--- NOTE | 2019-08-22 16:05 | RADIOLOGY REPORT (SQ) ---
EXAM DESCRIPTION: KUB/ABDOMEN (SINGLE VIEW) IMAGES COMPLETED DATE/TIME: 08/22/2019 3:56 pm REASON FOR STUDY: abdominal pain COMPARISON: 08/21/2019 NUMBER OF VIEWS: One view. TECHNIQUE: Supine radiographic image of the abdomen acquired. LIMITATIONS: None. FINDINGS: BOWEL GAS PATTERN: Normal bowel gas pattern. No dilated loops. CALCIFICATIONS: No suspicious calcifications. SOFT TISSUES: No gross mass or suggestion of organomegaly. HARDWARE: Prior cholecystectomy. BONES: No acute fracture. No worrisome bone lesions. OTHER: No other significant finding. IMPRESSION: NO RADIOGRAPHIC EVIDENCE FOR ACUTE ABDOMINAL DISEASE. TECHNICAL DOCUMENTATION: JOB ID: [id number] 2010 [employer]- All Rights Reserved Reading location - IP/workstation name: [email or web address]
[2019-08-22 20:19] LABS: APPEARANCE,URINE SLIGHTLY-CLOUDY; BILIRUBIN,URINE SMALL (NEGATIVE); GLUCOSE, URINE NEGATIVE (NEGATIVE); KETONES,URINE 80 mg/dL (NEGATIVE); LEUKOCYTE ESTERASE,URINE NEGATIVE (NEGATIVE); NITRITE,URINE NEGATIVE (NEGATIVE); PROTEIN,URINE 100 mg/dL (NEGATIVE); URINE SPECIFIC GRAVITY 1.035; UROBILINOGEN,URINE NEGATIVE mg/dL (<2.0)
[2019-08-22 20:21] LABS: COLOR,URINE YELLOW
--- NOTE | 2019-08-23 08:17 | RADIOLOGY REPORT (SQ) ---
EXAM DESCRIPTION: KUB/ABDOMEN (SINGLE VIEW) IMAGES COMPLETED DATE/TIME: 08/23/2019 7:56 am REASON FOR STUDY: abdominal pain COMPARISON: 08/22/2019. NUMBER OF VIEWS: One view. TECHNIQUE: Supine radiographic image of the abdomen acquired. LIMITATIONS: None. FINDINGS: BOWEL GAS PATTERN: Normal bowel gas pattern. No dilated loops. CALCIFICATIONS: No suspicious calcifications. SOFT TISSUES: No gross mass or suggestion of organomegaly. HARDWARE: Surgical clips. BONES: No acute fracture. No worrisome bone lesions. OTHER: No other significant finding. IMPRESSION: NO RADIOGRAPHIC EVIDENCE FOR ACUTE ABDOMINAL DISEASE. TECHNICAL DOCUMENTATION: JOB ID: [id number] 2010 [email or web address]- All Rights Reserved Reading location - IP/workstation name: [email or web address]
--- NOTE | 2019-08-23 10:13 | PDOC PROGRESS REPORT ---
Subjective Progress Note for:: 08/23/19 Subjective:: 39-year-old female with abdominal pain and constipation. The MiraLAX bowel prep has been incredibly successful. She has had multiple large stools. The patient reports that she continues to have cramping abdominal discomfort, but the burning sensation that she was experiencing has completely subsided. The patient also reports continued blood in her stool today. She denies chest pain, shortness of breath, fevers, chills, nausea, vomiting, dizziness, blurry vision. Reason For Visit: ABDOMINAL PAIN Physical Exam Vital Signs: Temp Pulse Resp BP Pulse Ox 98.3 F 101 H 12 144/81 H 97 08/23/19 00:23 08/23/19 00:23 08/23/19 00:23 08/23/19 00:23 08/23/19 00:23 Intake & Output 08/22/19 08/23/19 08/24/19 06:59 06:59 06:59 Intake Total 660 Balance 660 Weight 87.2 kg Exam: General appearance: PRESENT: no acute distress, cooperative Head exam: PRESENT: atraumatic, normocephalic Eye exam: PRESENT: EOMI, PERRLA. ABSENT: scleral icterus Mouth exam: PRESENT: moist, neck supple Neck exam: ABSENT: meningismus, tenderness, thyromegaly, tracheal deviation Respiratory exam: PRESENT: unlabored. ABSENT: tachypnea, wheezes Cardiovascular exam: ABSENT: tachycardia Vascular exam: ABSENT: pallor GI/Abdominal exam: PRESENT: soft. ABSENT: distended, firm, guarding, rebound, rigid, tenderness Rectal exam: PRESENT: deferred Extremities exam: ABSENT: clubbing Neurological exam: PRESENT: alert, awake, oriented to person, oriented to place, oriented to time, oriented to situation, CN II-XII grossly intact Psychiatric exam: ABSENT: agitated, anxious, depressed Focused psych exam: ABSENT: delusional Skin exam: ABSENT: cyanosis, erythema, jaundice Results Laboratory Results: 08/22/19 05:26 08/17/19 15:29 08/22/19 19:55 Urine Color YELLOW Urine Appearance SLIGHTLY-CLOUDY Urine pH 5.0 Ur Specific [place] 1.035 Urine Protein 100 H Urine Glucose (UA) NEGATIVE Urine Ketones 80 H Urine Blood NEGATIVE Urine Nitrite NEGATIVE Ur Leukocyte Esterase NEGATIVE Urine WBC (Auto) 3 Urine RBC (Auto) 9 Impressions: Acute Abdomen Series 08/17/19 15:50 IMPRESSION: No evidence of acute intrathoracic or acute intra-abdominal/pelvic process. Prior cholecystectomy. Abdomen Ultrasound 08/17/19 15:51 IMPRESSION: 1. The appendix was not visualized sonographically. 2. Limited right lower quadrant examination of the abdomen is unremarkable sonographically. Abdomen/Pelvis CTA 08/17/19 19:10 IMPRESSION: 1. Changes of partial involution of the spleen. There is some recovery of splenic tissue. Persistent splenic artery occlusion. 2. Focal mural thrombus along the anterior wall of the upper abdominal aorta extending minimally into the origin of the celiac axis. 3. Possible minimal mural thrombus in the mid superior mesenteric artery. 4. Heterogeneous enhancement of the liver. 5.Small benign appearing ovarian cyst. No follow-up imaging is recommended. Reference: J Am Ines Radiol 2013;10:675-681 Chest/Abdomen CTA 08/17/19 19:10 IMPRESSION: 1. No pulmonary embolism. 2. No pneumonia or edema. 3. Abnormal appearance of the spleen. This be further assessed on the CT scan of the abdomen and pelvis. Abdomen X-Ray 08/21/19 00:00 IMPRESSION: Mildly dilated distal transverse colon and splenic flexure. No other significant findings. KUB X-Ray 08/23/19 06:00 IMPRESSION: NO RADIOGRAPHIC EVIDENCE FOR ACUTE ABDOMINAL DISEASE. Assessment & Plan - Diagnosis (1) Constipation Is this a current diagnosis for this admission?: Yes (2) Abdominal pain Qualifiers: Abdominal location: epigastric Qualified Code(s): R10.13 - Epigastric pain Is this a current diagnosis for this admission?: Yes - Plan Summary Plan Summary: This is a 30 y/o female with abdominal pain and constipation. The patient reports that her abdominal pain is improving. She still complains of abdominal cramping, which may be related to the large volume of MiraLAX. She continues to have liquid stools. The patient has no significant abdominal tenderness on examination. She does not exhibit signs of peritonitis. She does report blood in her stool again today. She has had a small volume of blood with every bowel movement, recently. This could be related to the enema administration. It is likely exacerbated by her anticoagulants. There is the possibility that she could be experiencing a mild form of mesenteric ischemia due to her thrombotic disease. At this time, there is no indication for surgical intervention. Continue with supportive care. I would restart her IV fluids. If she begins to run fevers, I would consider antibiotics. The case has been discussed with her medical doctor, Dr. Chacon. I have relayed the above points to him. I will continue to monitor her very closely. Further interventions will be determined based on the patient's clinical course.
[2019-08-23] MEDS: RINGERS SOLUTION,LACTATED 1,000 ML IV PRN ×2 (10:29→22:55)
[2019-08-23] MEDS: HYDROXYCHLOROQUINE SULFATE 200 MG TABLET PO SCH (10:29)
[2019-08-23] MEDS: ENOXAPARIN SODIUM INJ 80 MG/0.8 ML DISP.SYRIN SUBCUT SCH ×2 (10:29→21:07)
[2019-08-23] MEDS: DOCUSATE SODIUM 100 MG CAPSULE PO SCH ×2 (10:29→17:26)
--- NOTE | 2019-08-23 14:46 | PDOC PROGRESS REPORT ---
Subjective Progress Note for:: 08/23/19 Subjective:: Complains of: Having more cramping abdominal pain today but her burning abdominal pain presumably from her splenic clots is completely gone per patient; she states she has seen some drips of blood come out with her stool but she is not complaining of any active bleeding from her rectum. Denies: diarrhea/shortness of breath/CUMMINGS/fever/chills Discussed the case in detail with surgery today and they believe patient likely has good flow through the arteries in her abdomen and if she does have some mild to moderate occlusions there would not be a surgical intervention indicated at this time. They are willing to offer a laparotomy as a last resort which seems reasonable. Will check lactate in the morning. Ordered mesenteric PVL. If she cleans out her bowels and her pain is gone/significantly reduced by tomorrow she could potentially be discharged home. Reason For Visit: ABDOMINAL PAIN Physical Exam Vital Signs: Temp Pulse Resp BP Pulse Ox 98.2 F 88 18 147/88 H 99 08/23/19 10:55 08/23/19 10:55 08/23/19 10:55 08/23/19 10:55 08/23/19 10:55 Intake & Output 08/22/19 08/23/19 08/24/19 06:59 06:59 06:59 Intake Total 660 Balance 660 Weight 87.2 kg General appearance: PRESENT: no acute distress, well-developed, well-nourished Head exam: PRESENT: atraumatic, normocephalic Eye exam: PRESENT: conjunctiva pink Mouth exam: PRESENT: moist Respiratory exam: PRESENT: clear to auscultation armand. ABSENT: rales, rhonchi, wheezes Cardiovascular exam: PRESENT: RRR. ABSENT: diastolic murmur, rubs, systolic murmur GI/Abdominal exam: PRESENT: normal bowel sounds, soft. ABSENT: distended, guarding, mass, organolmegaly, rebound, tenderness Rectal exam: PRESENT: deferred Musculoskeletal exam: PRESENT: ambulatory Neurological exam: PRESENT: alert, awake, oriented to person, oriented to place, oriented to time, oriented to situation Psychiatric exam: PRESENT: appropriate affect, normal mood Skin exam: PRESENT: dry, intact, warm Results Laboratory Results: 08/22/19 05:26 08/17/19 15:29 08/22/19 19:55 Urine Color YELLOW Urine Appearance SLIGHTLY-CLOUDY Urine pH 5.0 Ur Specific [place] 1.035 Urine Protein 100 H Urine Glucose (UA) NEGATIVE Urine Ketones 80 H Urine Blood NEGATIVE Urine Nitrite NEGATIVE Ur Leukocyte Esterase NEGATIVE Urine WBC (Auto) 3 Urine RBC (Auto) 9 Impressions: Acute Abdomen Series 08/17/19 15:50 IMPRESSION: No evidence of acute intrathoracic or acute intra-abdominal/pelvic process. Prior cholecystectomy. Abdomen Ultrasound 08/17/19 15:51 IMPRESSION: 1. The appendix was not visualized sonographically. 2. Limited right lower quadrant examination of the abdomen is unremarkable sonographically. Abdomen/Pelvis CTA 08/17/19 19:10 IMPRESSION: 1. Changes of partial involution of the spleen. There is some recovery of splenic tissue. Persistent splenic artery occlusion. 2. Focal mural thrombus along the anterior wall of the upper abdominal aorta extending minimally into the origin of the celiac axis. 3. Possible minimal mural thrombus in the mid superior mesenteric artery. 4. Heterogeneous enhancement of the liver. 5.Small benign appearing ovarian cyst. No follow-up imaging is recommended. Reference: J Am Ines Radiol 2013;10:675-681 Chest/Abdomen CTA 08/17/19 19:10 IMPRESSION: 1. No pulmonary embolism. 2. No pneumonia or edema. 3. Abnormal appearance of the spleen. This be further assessed on the CT scan of the abdomen and pelvis. Abdomen X-Ray 08/21/19 00:00 IMPRESSION: Mildly dilated distal transverse colon and splenic flexure. No other significant findings. KUB X-Ray 08/23/19 06:00 IMPRESSION: NO RADIOGRAPHIC EVIDENCE FOR ACUTE ABDOMINAL DISEASE. Assessment and Plan - Diagnosis (1) Aortic mural thrombus Is this a current diagnosis for this admission?: Yes Plan: -seen on CTA -tx dose lovenox; expect her to need lifelong AC now Suspect she has underlying hypercoagulability disorder Possibly vasculitis: NEGATIVE ANCA, MPO, [place]-3; PENDING antiphospholipid antibodies ESR elevated, CRP markedly elevated at 225 D/w Dr Morrow in hematology: She agrees with the current plan of care and would like patient restarted on Xarelto at discharge along with Plaquenil; she will see patient in close follow-up after discharge Echocardiogram showed normal function, good EF, no intracardiac thrombus Pain related to this and splenic clot seems to be resolved Mesenteric PVL ordered (2) Large bowel obstruction Is this a current diagnosis for this admission?: Yes (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 Is this a current diagnosis for this admission?: Yes (4) Abdominal pain Qualifiers: Abdominal location: epigastric Qualified Code(s): R10.13 - Epigastric pain Is this a current diagnosis for this admission?: Yes Plan: -suspect due to splenic infarct and progressive constipation Bowel regimen -pain mgmt prn to be used sparingly, wean narcotics Bowels moving many times as of 08/21 and patient states her abdominal pain is no longer sharp but more crampy in nature (5) Radha-1 antibody positive Is this a current diagnosis for this admission?: Yes (8) Constipation Is this a current diagnosis for this admission?: Yes - Plan Summary Summary: Patient is admitted to the medical floor for routine's supportive and symptomatic cares at the request of Dr. Cohn. She will receive morphine sulfate 1 mg IV every 4 hours for control of her pain. She will be on Lovenox 80 mg of cutaneously every 12 hours. Further evaluation will be directed by Dr. Cohn. - Time Time Spent with patient: 25-34 minutes Medications reviewed and adjusted accordingly: Yes Anticipated discharge: Home Within: within 72 hours - Inpatient Certification Medical Necessity: Significant Comorbidiites Make Outpatient Treatment Too Risky, Need Close Monitoring Due to Risk of Patient Decompensation, Need for Pain Control, Risk of Complication if Not Cared For in Hospital
[2019-08-23] MEDS: ACETAMINOPHEN 325 MG TABLET PO PRN (21:04)
[2019-08-24 06:11] LABS: HEMATOCRIT 39.8 % (36.0-47.0); HEMOGLOBIN 13.2 g/dL (12.0-15.5); MEAN CORPUSCULAR HGB CONC 33.1 g/dL (32.0-36.0); MEAN CORPUSCULAR VOLUME 82 fl (80-97); PLATELET COUNT 493 10^3/uL (150-450); RED BLOOD COUNT 4.87 10^6/uL (3.72-5.28); RED CELL DISTRIBUTION WIDTH 15.7 % (11.5-14.0); WHITE BLOOD COUNT 29.2 10^3/uL (4.0-10.5)
[2019-08-24 07:59] VITALS: BP 134/80
--- NOTE | 2019-08-24 08:23 | RADIOLOGY REPORT (SQ) ---
EXAM DESCRIPTION: U/S ABDOMEN LTD W/DOPPLER IMAGES COMPLETED DATE/TIME: 08/24/2019 5:35 am REASON FOR STUDY: Mesenteric PVL for arterial flow COMPARISON: None. TECHNIQUE: Static and real time henriquez scale imaging performed of the aorta, celiac axis and superior mesenteric artery. Additional Doppler, color Doppler and spectral images acquired. Velocities recor ded. LIMITATIONS: None. FINDINGS: CELIAC: 156 cm/sec CELIAC: Normal wave forms. No stenoses. SUPERIOR MESENTERIC ARTERY: PROXIMAL: 97 cm/sec MID: 74 cm/sec SMA: Normal wave forms. No stenoses. OTHER: No other significant finding. IMPRESSION: NO EVIDENCE FOR CELIAC ARTERY OR SMA STENOSIS. TECHNICAL DOCUMENTATION: JOB ID: [id number] 2010 [employer]- All Rights Reserved Reading location - IP/workstation name: [email or web address]
--- NOTE | 2019-08-24 08:55 | PDOC PROGRESS REPORT ---
Subjective Progress Note for:: 08/24/19 Subjective:: 39-year-old female with abdominal pain and constipation. The MiraLAX bowel prep was incredibly successful. She has had multiple large stools. The patient reports that her cramping abdominal discomfort is much improved, as is her nausea. The patient also reports slowing of her hematochezia. She denies chest pain, shortness of breath, fevers, chills, nausea, vomiting, dizziness, blurry vision. Reason For Visit: ABDOMINAL PAIN Physical Exam Vital Signs: Temp Pulse Resp BP Pulse Ox 98.2 F 71 18 134/80 H 100 08/24/19 07:58 08/24/19 07:58 08/24/19 07:58 08/24/19 07:58 08/24/19 07:58 Intake & Output 08/23/19 08/24/19 08/25/19 06:59 06:59 06:59 Intake Total 1169 Balance 1169 Weight 87.2 kg 79.7 kg Exam: General appearance: PRESENT: no acute distress, cooperative Head exam: PRESENT: atraumatic, normocephalic Eye exam: PRESENT: EOMI, PERRLA. ABSENT: scleral icterus Mouth exam: PRESENT: moist, neck supple Neck exam: ABSENT: meningismus, tenderness, thyromegaly, tracheal deviation Respiratory exam: PRESENT: unlabored. ABSENT: tachypnea, wheezes Cardiovascular exam: ABSENT: tachycardia Vascular exam: ABSENT: pallor GI/Abdominal exam: PRESENT: soft. ABSENT: distended, firm, guarding, rebound, rigid, tenderness Rectal exam: PRESENT: deferred Extremities exam: ABSENT: clubbing Neurological exam: PRESENT: alert, awake, oriented to person, oriented to place, oriented to time, oriented to situation, CN II-XII grossly intact Psychiatric exam: ABSENT: agitated, anxious, depressed Focused psych exam: ABSENT: delusional Skin exam: ABSENT: cyanosis, erythema, jaundice Results Laboratory Results: 08/24/19 05:54 08/17/19 15:29 08/24/19 08/24/19 05:54 05:54 WBC 29.2 H RBC 4.87 Hgb 13.2 Hct 39.8 MCV 82 MCH 27.0 MCHC 33.1 RDW 15.7 H Plt Count 493 H Lactic Acid 1.0 Impressions: Acute Abdomen Series 08/17/19 15:50 IMPRESSION: No evidence of acute intrathoracic or acute intra-abdominal/pelvic process. Prior cholecystectomy. Abdomen/Pelvis CTA 08/17/19 19:10 IMPRESSION: 1. Changes of partial involution of the spleen. There is some recovery of splenic tissue. Persistent splenic artery occlusion. 2. Focal mural thrombus along the anterior wall of the upper abdominal aorta extending minimally into the origin of the celiac axis. 3. Possible minimal mural thrombus in the mid superior mesenteric artery. 4. Heterogeneous enhancement of the liver. 5.Small benign appearing ovarian cyst. No follow-up imaging is recommended. Reference: J Am Ines Radiol 2013;10:675-681 Chest/Abdomen CTA 08/17/19 19:10 IMPRESSION: 1. No pulmonary embolism. 2. No pneumonia or edema. 3. Abnormal appearance of the spleen. This be further assessed on the CT scan of the abdomen and pelvis. Abdomen X-Ray 08/21/19 00:00 IMPRESSION: Mildly dilated distal transverse colon and splenic flexure. No other significant findings. KUB X-Ray 08/23/19 06:00 IMPRESSION: NO RADIOGRAPHIC EVIDENCE FOR ACUTE ABDOMINAL DISEASE. Abdomen Ultrasound 08/24/19 00:00 IMPRESSION: NO EVIDENCE FOR CELIAC ARTERY OR SMA STENOSIS. Assessment & Plan - Diagnosis (1) Constipation Is this a current diagnosis for this admission?: Yes (2) Abdominal pain Qualifiers: Abdominal location: epigastric Qualified Code(s): R10.13 - Epigastric pain Is this a current diagnosis for this admission?: Yes - Plan Summary Plan Summary: This is a 30 y/o female with abdominal pain and constipation. The patient reports that her abdominal pain is improving. She continues to have liquid stools. The patient has no significant abdominal tenderness on examination. She does not exhibit signs of peritonitis. She reports that the blood in her stool is slowing. There is still no indication for surgical intervention. Continue with supportive care. Surgery will sign off at this time. The patient should have a colonoscopy in the next 6-8 weeks to ensure that her bleeding is not associated with a malignancy. Followup with [facility] after discharge.
[2019-08-24 09:30] LABS: ALBUMIN 3.3 g/dL (3.5-5.0); ALKALINE PHOSPHATASE 119 U/L (38-126); ANION GAP 8 (5-19); ASPARTATE AMINO TRANSFERASE 25 U/L (14-36); BILIRUBIN,DIRECT 0.1 mg/dL (0.0-0.4); BILIRUBIN,TOTAL 0.4 mg/dL (0.2-1.3); BLOOD UREA NITROGEN 12 mg/dL (7-20); CALCIUM 9.2 mg/dL (8.4-10.2); CARBON DIOXIDE 24 mmol/L (22-30); CHLORIDE 100 mmol/L (98-107); GLUCOSE 74 mg/dL (75-110); POTASSIUM 4.7 mmol/L (3.6-5.0); TOTAL PROTEIN 6.5 g/dL (6.3-8.2)
[2019-08-24] MEDS: DOCUSATE SODIUM 100 MG CAPSULE PO SCH (10:46)
[2019-08-24] MEDS: ACETAMINOPHEN 325 MG TABLET PO PRN (11:09)
[2019-08-24] MEDS: HYDROXYCHLOROQUINE SULFATE 200 MG TABLET PO SCH (11:10)
[2019-08-24] MEDS: ENOXAPARIN SODIUM INJ 80 MG/0.8 ML DISP.SYRIN SUBCUT SCH (11:11)
--- NOTE | 2019-08-24 13:00 | PDOC DISCHARGE SUMMARY ---
Impression - Admit/DC Date/PCP Admission Date/Primary Care Provider: 08/17/19 22:29 MIGUELINA SAAB PA-C Discharge Date: 08/24/19 - Discharge Diagnosis (1) Aortic mural thrombus Is this a current diagnosis for this admission?: Yes (2) Large bowel obstruction Is this a current diagnosis for this admission?: Yes (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 Is this a current diagnosis for this admission?: Yes (4) Abdominal pain Is this a current diagnosis for this admission?: Yes (5) Radha-1 antibody positive Is this a current diagnosis for this admission?: Yes (6) Partial splenic infarction Is this a current diagnosis for this admission?: Yes (7) Splenic infarction Is this a current diagnosis for this admission?: Yes (8) Constipation Is this a current diagnosis for this admission?: Yes - Assessment Summary: Patient is admitted to the medical floor for routine's supportive and symptomat ic cares at the request of Dr. Cohn. She will receive morphine sulfate 1 mg IV every 4 hours for control of her pain. She will be on Lovenox 80 mg of cutaneously every 12 hours. Further evaluation will be directed by Dr. Cohn. - Additional Information Resuscitation Status: Full Code Discharge Diet: As Tolerated Discharge Activity: Activity As Tolerated Referrals: MIGUELINA SAAB PA-C [Primary Care Provider] - Follow up as needed ROGER TORRES MD [ACTIVE STAFF] - 08/27/19 11:00 am Prescriptions: Docusate Sodium [Colace 100 mg Capsule] 200 mg PO DAILY #30 capsule Bisacodyl [Dulcolax 5 Mg Tablet] 5 mg PO PRN PRN #30 tabec PRN Reason: Rivaroxaban [Xarelto] 1 each PO ASDIR PRN #1 tab.ds.pk PRN Reason: Home Medications: Multivitamin [Multiple Vitamins] 1 tab PO DAILY 04/02/19 Hydroxychloroquine Sulfate [Plaquenil 200 mg Tablet] 400 mg PO DAILY 05/21/19 Bisacodyl [Dulcolax 5 Mg Tablet] 5 mg PO PRN PRN #30 tabec 08/24/19 Docusate Sodium [Colace 100 mg Capsule] 200 mg PO DAILY #30 capsule 08/24/19 Rivaroxaban [Xarelto] 1 each PO ASDIR PRN #1 tab.ds.pk 08/24/19 History of Present Illiness History of Present Illness: PER H&P: "SHASHI BETH is a 39 year old female who presents the emergency room with a 3-week history of abdominal pain. She admits the gradual development of constant epigastric abdominal sharp burning pain, radiating throughout the abd omen and into the intrascapular region of her back, beginning 3 weeks ago. At that time she was put on Pepcid by Dr. Torres who had discontinued both her Protonix and Xarelto the previous week. Her pain was improved for 1 week but then returned in the same nature and location as it progressively worsened. She admits using Percocet with moderate transient improvement after each dose. Today the pain has become moderate-severe. She denies any associated or accompanying signs and symptoms. In the emergency room she was found to have intramural clots in her aorta and abdominal arterial vasculature. Dr. Cohn was consulted by the emergency room staff and he directed that the patient be admitted to the hospital where he will evaluate her further tomorrow. She was subsequently admitted to the hospital service for further evaluation and treatment." Hospital Course Hospital Course: Patient admitted for splenic artery and aortic thrombi seen on CTA. She did have a mesenteric PVL which showed patent abdominal arteries. She was started on Lovenox and improved substantially from the standpoint. However, she did have severe constipation and partial large bowel obstruction. General surgery was consulted and they prescribed an aggressive bowel regimen which was extremely successful. Patient's abdominal pain and vomiting completely resolved and she was put on a bowel regimen at discharge. Dr. Mcgowan was called and notified of admission and she requested patient be put back on Xarelto and continued on Plaquenil until the patient's next follow-up. She will be following the anticoagulant therapy and prescribing refills as appropriate. Patient will certainly need follow-up with a tele marketing executive as well as her oncologist and PCP. There is a very high likelihood that she has some sort of rheumatologic disorder that is yet to be identified. Her vasculitis work-up here was negative. (1) Aortic mural thrombus Is this a current diagnosis for this admission?: Yes Plan: -seen on CTA -tx dose lovenox; expect her to need lifelong AC now Suspect she has underlying hypercoagulability disorder Possibly vasculitis: NEGATIVE ANCA, MPO, RI-3; PENDING antiphospholipid antibodies ESR elevated, CRP markedly elevated at 225 D/w Dr Morrow in hematology: She agrees with the current plan of care and would like patient restarted on Xarelto at discharge along with Plaquenil; she will see patient in close follow-up after discharge Echocardiogram showed normal function, good EF, no intracardiac thrombus Pain related to this and splenic clot seems to be resolved Mesenteric PVL ordered (2) Large bowel obstruction Is this a current diagnosis for this admission?: Yes (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 Is this a current diagnosis for this admission?: Yes (4) Abdominal pain Qualifiers: Abdominal location: epigastric Qualified Code(s): R10.13 - Epigastric pain Is this a current diagnosis for this admission?: Yes Plan: -suspect due to splenic infarct and progressive constipation Bowel regimen -pain mgmt prn to be used sparingly, wean narcotics Bowels moving many times as of 08/21 and patient states her abdominal pain is no longer sharp but more crampy in nature (5) Radha-1 antibody positive Is this a current diagnosis for this admission?: Yes (8) Constipation Is this a current diagnosis for this admission?: Yes Physical Exam Vital Signs: Temp Pulse Resp BP Pulse Ox 98.2 F 71 18 134/80 H 100 08/24/19 07:58 08/24/19 07:58 08/24/19 07:58 08/24/19 07:58 08/24/19 07:58 Intake & Output 08/23/19 08/24/19 08/25/19 06:59 06:59 06:59 Intake Total 1169 Balance 1169 Weight 87.2 kg 79.7 kg General appearance: PRESENT: no acute distress, well-developed, well-nourished Head exam: PRESENT: atraumatic, normocephalic Eye exam: PRESENT: conjunctiva pink. ABSENT: scleral icterus Respiratory exam: PRESENT: clear to auscultation armand. ABSENT: rales, rhonchi, wheezes Cardiovascular exam: PRESENT: RRR. ABSENT: diastolic murmur, rubs, systolic murmur GI/Abdominal exam: PRESENT: normal bowel sounds, soft. ABSENT: distended, guarding, mass, organolmegaly, rebound, tenderness Rectal exam: PRESENT: deferred Neurological exam: PRESENT: alert, awake, oriented to person, oriented to place, oriented to time, oriented to situation Psychiatric exam: PRESENT: appropriate affect, normal mood Skin exam: PRESENT: dry, intact, warm Results Laboratory Results: WBC 29.2 10^3/uL (4.0-10.5) H 08/24/19 05:54 RBC 4.87 10^6/uL (3.72-5.28) 08/24/19 05:54 Hgb 13.2 g/dL (12.0-15.5) 08/24/19 05:54 Hct 39.8 % (36.0-47.0) 08/24/19 05:54 MCV 82 fl (80-97) 08/24/19 05:54 MCH 27.0 pg (27.0-33.4) 08/24/19 05:54 MCHC 33.1 g/dL (32.0-36.0) 08/24/19 05:54 RDW 15.7 % (11.5-14.0) H 08/24/19 05:54 Plt Count 493 10^3/uL (150-450) H 08/24/19 05:54 Lymph % (Auto) 16.5 % (13-45) 08/17/19 15:29 [place] % (Auto) 7.1 % (3-13) 08/17/19 15:29 Eos % (Auto) 0.5 % (0-6) 08/17/19 15:29 Baso % (Auto) 1.3 % (0-2) 08/17/19 15:29 Absolute Neuts (auto) 13.8 10^3/uL (1.7-8.2) H 08/17/19 15:29 Absolute Lymphs (auto) 3.1 10^3/uL (0.5-4.7) 08/17/19 15:29 Absolute Monos (auto) 1.3 10^3/uL (0.1-1.4) 08/17/19 15:29 Absolute Eos (auto) 0.1 10^3/uL (0.0-0.6) 08/17/19 15:29 Absolute Basos (auto) 0.2 10^3/uL (0.0-0.2) 08/17/19 15:29 Seg Neutrophils % 74.6 % (42-78) 08/17/19 15:29 Platelet Estimate Cancelled 08/22/19 00:27 ESR 60 mm/hr (0-20) H 08/18/19 15:41 PT 14.0 SEC (11.4-15.4) 08/17/19 18:00 INR 1.08 08/17/19 18:00 INR (Anticoag Therapy) Cancelled 08/17/19 17:10 D-Dimer 2.45 ug/mL (0.00-0.50) H 08/17/19 18:00 Sodium 132.4 mmol/L (137-145) L 08/24/19 05:54 Potassium 4.7 mmol/L (3.6-5.0) 08/24/19 05:54 Chloride 100 mmol/L (98-107) 08/24/19 05:54 Carbon Dioxide 24 mmol/L (22-30) 08/24/19 05:54 Anion Gap 8 (5-19) 08/24/19 05:54 BUN 12 mg/dL (7-20) 08/24/19 05:54 Creatinine 0.54 mg/dL (0.52-1.25) 08/24/19 05:54 Est GFR ( Amer) > 60 (>60) 08/24/19 05:54 Est GFR (MDRD) Non-Af > 60 (>60) 08/24/19 05:54 Glucose 74 mg/dL (75-110) L 08/24/19 05:54 Lactic Acid 1.0 mmol/L (0.7-2.1) 08/24/19 05:54 Calcium 9.2 mg/dL (8.4-10.2) 08/24/19 05:54 Total Bilirubin 0.4 mg/dL (0.2-1.3) 08/24/19 05:54 Direct Bilirubin 0.1 mg/dL (0.0-0.4) 08/24/19 05:54 Neonat Total Bilirubin Not Reportable 08/24/19 05:54 Neonat Direct Bilirubin Not Reportable 08/24/19 05:54 Neonat Indirect Bili Not Reportable 08/24/19 05:54 AST 25 U/L (14-36) 08/24/19 05:54 ALT 17 U/L (<35) 08/24/19 05:54 Alkaline Phosphatase 119 U/L (38-126) 08/24/19 05:54 C-Reactive Protein 224.7 mg/L (<10.0) H 08/18/19 15:41 Total Protein 6.5 g/dL (6.3-8.2) 08/24/19 05:54 Albumin 3.3 g/dL (3.5-5.0) L 08/24/19 05:54 Serum HCG, Qual NEGATIVE (NEGATIVE) 08/17/19 15:29 Urine Color YELLOW 08/22/19 19:55 Urine Appearance SLIGHTLY-CLOUDY 08/22/19 19:55 Urine pH 5.0 (5.0-9.0) 08/22/19 19:55 Ur Specific [place] 1.035 08/22/19 19:55 Urine Protein 100 mg/dL (NEGATIVE) H 08/22/19 19:55 Urine Glucose (UA) NEGATIVE mg/dL (NEGATIVE) 08/22/19 19:55 Urine Ketones 80 mg/dL (NEGATIVE) H 08/22/19 19:55 Urine Blood NEGATIVE (NEGATIVE) 08/22/19 19:55 Urine Nitrite NEGATIVE (NEGATIVE) 08/22/19 19:55 Urine Bilirubin SMALL (NEGATIVE) H 08/22/19 19:55 Urine Urobilinogen NEGATIVE mg/dL (<2.0) 08/22/19 19:55 Ur Leukocyte Esterase NEGATIVE (NEGATIVE) 08/22/19 19:55 Urine WBC (Auto) 3 /HPF 08/22/19 19:55 Urine RBC (Auto) 9 /HPF 08/22/19 19:55 U Hyaline Cast (Auto) 3 /LPF 08/22/19 19:55 Urine Bacteria (Auto) 1+ /HPF 08/20/19 11:30 Squamous Epi Cells Auto 1 /HPF 08/22/19 19:55 Urine Mucus (Auto) MANY /LPF 08/22/19 19:55 Urine Ascorbic Acid NEGATIVE (NEGATIVE) 08/22/19 19:55 c-ANCA Antibody <1:20 titer (Neg:<1:20) 08/18/19 15:41 Anti-Proteinase 3 Intrp <3.5 U/mL (0.0-3.5) 08/18/19 15:41 Atypical p-ANCA <1:20 titer (Neg:<1:20) 08/18/19 15:41 p-ANCA Antibody <1:20 titer (Neg:<1:20) 08/18/19 15:41 Myeloperoxidase Ab <9.0 U/mL (0.0-9.0) 08/18/19 15:41 Slides for Path Review Cancelled 08/22/19 00:27 Impressions: Abdomen Ultrasound 08/17/19 15:50 IMPRESSION: 1. The distal abdominal aorta is obscured by overlying bowel gas. 2. Prior cholecystectomy. 3. Fatty liver. 4. A complex area is identified in the spleen. This finding may correlate to the CT examination dated 05/21/2019 suggested and infarct. Acute Abdomen Series 08/17/19 15:50 IMPRESSION: No evidence of acute intrathoracic or acute intra-abdominal/pelvic process. Prior cholecystectomy. Abdomen Ultrasound 08/17/19 15:51 IMPRESSION: 1. The appendix was not visualized sonographically. 2. Limited right lower quadrant examination of the abdomen is unremarkable sonographically. Abdomen/Pelvis CTA 08/17/19 19:10 IMPRESSION: 1. Changes of partial involution of the spleen. There is some recovery of splenic tissue. Persistent splenic artery occlusion. 2. Focal mural thrombus along the anterior wall of the upper abdominal aorta extending minimally into the origin of the celiac axis. 3. Possible minimal mural thrombus in the mid superior mesenteric artery. 4. Heterogeneous enhancement of the liver. 5.Small benign appearing ovarian cyst. No follow-up imaging is recommended. Reference: J Am Ines Radiol 2013;10:675-681 Chest/Abdomen CTA 08/17/19 19:10 IMPRESSION: 1. No pulmonary embolism. 2. No pneumonia or edema. 3. Abnormal appearance of the spleen. This be further assessed on the CT scan of the abdomen and pelvis. Abdomen X-Ray 08/21/19 00:00 IMPRESSION: Mildly dilated distal transverse colon and splenic flexure. No other significant findings. KUB X-Ray 08/22/19 15:38 IMPRESSION: NO RADIOGRAPHIC EVIDENCE FOR ACUTE ABDOMINAL DISEASE. KUB X-Ray 08/23/19 06:00 IMPRESSION: NO RADIOGRAPHIC EVIDENCE FOR ACUTE ABDOMINAL DISEASE. Abdomen Ultrasound 08/24/19 00:00 IMPRESSION: NO EVIDENCE FOR CELIAC ARTERY OR SMA STENOSIS. Plan Plan of Treatment: Follow-up with PCP Follow-up with tele marketing executive Follow-up with Dr. Morrow in oncology Time Spent: Greater than 30 Minutes Stroke Is this a Stroke Patient?: No Acute Heart Failure - Is this a Heart Failure Patient?: No
== END 2019-08-24 13:26 | disposition home or self-care (01) | DRG 389 ==
LOC: ER 14:21 → EH 22:29 → 4S 23:28
PROVIDERS: ADMIT Emergency Medicine; ATTEND Internal Medicine
DX: K56.690 Other partial intestinal obstruction (principal); I74.09 Other arterial embolism and thrombosis of abdominal aorta; D73.5 Infarction of spleen; R79.0 Abnormal level of blood mineral; Z14.8 Genetic carrier of other disease; L56.2 Photocontact dermatitis [berloque dermatitis]; D72.829 Elevated white blood cell count, unspecified; K59.03 Drug induced constipation; T40.605A Adverse effect of unspecified narcotics, initial encounter; Z90.49 Acquired absence of other specified parts of digestive tract; Z83.3 Family history of diabetes mellitus; Z82.49 Family history of ischemic heart disease and other diseases of the circulatory system; Z88.5 Allergy status to narcotic agent; Z79.01 Long term (current) use of anticoagulants; Z87.19 Personal history of other diseases of the digestive system
CPT/HCPCS: 36415; 71275; 74018; 74019; 74022; 74174; 76700; 76705; 80053; 81001; 83516; 83605; 84703; 85025; 85027; 85379; 85597; 85598; 85610; 85613; 85652; 85730; 85732; 86140; 86146; 86147; 86148; 86256; 86849; 93306; 93976; 96361; 96372; 96374; 96375; 99285; J1650; J2270; J2405; J2550; J3490; J7030; J7120; S0028